=== PATIENT | female | born 1950 | race Caucasian/White ===

== ENCOUNTER → 2019-11-07 15:32 | Outpatient (BNVA) | payer MEDICARE, MEDICAID, SELFPAY | PROVIDERS: Family Provider Family Medicine; PCP Family Medicine; Referring Provider Family Medicine; Visit Provider Internal Medicine Cardiovascular Disease | DX: R07.9 Chest pain, unspecified (principal); I49.9 Cardiac arrhythmia, unspecified; R06.02 Shortness of breath; R07.89 Other chest pain; I48.91 Unspecified atrial fibrillation; Z79.01 Long term (current) use of anticoagulants; I48.19 Other persistent atrial fibrillation; I35.8 Other nonrheumatic aortic valve disorders; E11.65 Type 2 diabetes mellitus with hyperglycemia; I10 Essential (primary) hypertension | CPT/HCPCS: 80053; 84443; 85025 ==

== ENCOUNTER 2019-11-23 07:07 | Outpatient (CLI) | payer MEDICARE, MEDICAID, SELFPAY ==
--- NOTE | 2019-11-23 07:19 | NMCV_ITS ---
NM tala perf SPECT r/s* [id number] Merly Guillen Age: 69 Gender: F : 1950 Exam Date: 11/23/2019 08:15 Ordering Phys: Sánchez Gaxiola MD ([email or web address]) Technologist: LILA Blackman Exam Location: [facility] Indications: Chest pain STRESS TEST [facility] IMAGE PROTOCOL Rest/Stress 1 Lexiscan Day Radiopharmaceutical Dose (mCi) Administration Site Administered by Rest: Tc-99m 10.9 IV LILA Blackman Sestamibi Stress:Tc-99m 32.3 IV LILA Blackman Sestamibi Rest: 23-Nov-2019 60 Discovery 630 Stress: 23-Nov-2019 45 Discovery 630 0.4mg Lexiscan. Supine position only as patient was unable to lay prone. SPECT RESULTS Technical Quality: Good Raw Data Analysis: Breast attenuation, Soft tissue attenuation Image Corrections: No attenuation or motion correction applied Summed Stress Score: 4 Summed Rest Score: 0 Summed Difference Score: 4 PERFUSION FINDINGS Small to moderate area of decreased tracer uptake was noted in the mid anterior, anterolateral and apical lateral regions. Some reversibility was noted in these regions. FUNCTIONAL RESULTS (calculated via Gated SPECT) Stress Image LV EF (%): 60 Stress EDV (mL):80 TID: 0.86 Stress ESV (mL):32 FUNCTIONAL FINDINGS: Segmental wall motion analysis revealing no gross wall motion normalities. IMPRESSIONS 1. Myocardial perfusion imaging revealing a small to moderate area of decreased tracer uptake in the mid anterior, mid anterolateral and apical lateral region, with some reversibility, suggestive of myocardial scarring with ischemia in the distribution of the left and descending artery/circumflex artery. 2. Normal LV ejection fraction of 60%. 3. LV wall motion analysis revealing no gross wall motion normalities. 4. Normal LV volume. No similar previous studies are available for comparison Dr Sánchez Gaxiola MD FAC (Electronically Signed) Final Date: 23 Nov 2019 19:06 S
[2019-11-23 07:43] VITALS: BMI 34.9
--- NOTE | 2019-11-23 07:43 | ECG_ITS ---
NAME OF STUDY: LEXISCAN SESTAMIBI STRESS TEST INDICATION: Atypical Chest Pain RESULTS TO KELLY QUIÑONES PROCEDURE: At the baseline, the EKG revealed atrial fibrillation with a controlled ventricular response rate. Some nonspecific T wave changes. Frequent ventricular ectopics. The baseline blood pressure was 155/98 mm Hg with a heart rate of 106 beats/min. Lexiscan was infused over a period of 20 seconds. A total of 0.4 milligrams of Lexiscan was infused. The stress phase was continued for a total of 5 minutes. Heart rate at the end of the stress phase was 110 with a blood pressure 155/88. The EKG at the peak infusion revealed no significant changes. Sestamibi was injected 20 seconds after the Lexiscan infusion. Blood pressure at the end of the recovery phase was 141/60 with a heart rate of 111 per minute. CONCLUSION: 1. No significant EKG changes with the LexiScan infusion 2. No LexiScan induced chest pain or cardiac arrhythmia 3. Normal blood pressure and heart rate response 4. Sestamibi/sestamibi perfusion scan pending; see separate report. Electronically Signed On 11-23-2019 19:16:32 CDT by Sánchez Gaxiola M.D. [email or web address]
--- NOTE | 2019-11-23 09:08 | SUR.PREOP ---
Patient reports no pain or discomfort prior to the start of the procedure.
[2019-11-23] MEDS: regadenoson 0.4 Mg/5 ml Syringe IVP (09:10)
[2019-11-23 09:16] VITALS: BP 144/61; PULSE 111
== END 2019-11-23 07:08 | disposition home or self-care (01) ==
LOC: RAD 07:15
PROVIDERS: PCP Family Medicine; Visit Provider Internal Medicine Cardiovascular Disease
DX: R06.02 Shortness of breath (principal); R07.89 Other chest pain
CPT/HCPCS: 78452; 93017; A9500; J2785

== ENCOUNTER 2019-11-30 08:30 | Outpatient (CLI) | payer MEDICARE, MEDICAID, SELFPAY ==
--- NOTE | 2019-11-30 08:34 | MR_ITS ---
WS: [id number] MRI BRAIN WITH AND WITHOUT CONTRAST HISTORY: MILD COGNITIVE IMPAIRMENT COMPARISON: None available. TECHNIQUE: Multiplanar imaging performed through the brain with Prohance 17 ml's IV. No acute infarcts are seen. Overton-white matter differentiation is well preserved. There is mild symmet duran atrophy and volume loss. CSF nodule measuring 10 mm in the RIGHT frontal lobe white matter is pro bably from a prior insult. There are a few scattered T2 and FLAIR signal hyperintensities in the subc ortical white matter. Bilateral ischemic changes in the viola. No susceptibility artifacts or prior lacunar infarcts. Ventricles and extra-axial spaces are normal. Clivus and pituitary gland are normal. Postcontrast images are negative for masses or vascular malformations. Dural venous sinuses are normal. Paranasal sinuses: Well aerated with no significant disease. Mastoid air cells: Normal. Calvarium and scalp: Normal. MR/MR head wo/w con [id number] IMPRESSION: 1. No acute infarct or masses. 2. Benign cyst in the RIGHT frontal lobe. 3. Mild chronic microvascular ischemic disease in the supratentorial white mat ter and also in the viola.
== END 2019-11-30 08:31 | disposition home or self-care (01) ==
LOC: RADSHAW 08:32
PROVIDERS: PCP Family Medicine; Visit Provider Physician Assistant
DX: G31.84 Mild cognitive impairment of uncertain or unknown etiology (principal); G93.0 Cerebral cysts; I25.9 Chronic ischemic heart disease, unspecified
CPT/HCPCS: 70553; A9579

== ENCOUNTER → 2020-01-04 13:02 | Outpatient (BNVA) | payer MEDICARE, MEDICAID, SELFPAY | PROVIDERS: PCP Family Medicine; Visit Provider Internal Medicine | DX: D64.9 Anemia, unspecified (principal); K92.1 Melena; E21.3 Hyperparathyroidism, unspecified; E78.5 Hyperlipidemia, unspecified | CPT/HCPCS: 82607; 82746; 83550; 85045 ==

== ENCOUNTER 2020-01-13 07:50 | Day surgery (SDC) | payer MEDICARE, MEDICAID, SELFPAY ==
[2020-01-11 12:43] VITALS: BMI 33.5
[2020-01-13 08:16] VITALS: BP 108/55; PULSE 114; RESP 18; TEMP 36.1; O2SAT 97
[2020-01-13] MEDS: sodium chloride 0.9% 1,000 ML 30 ML IV (08:30)
[2020-01-13 08:31] LABS: Glucose Point of Care 218 mg/dL (70-110)
--- NOTE | 2020-01-13 08:46 | ANES.PREANE2 ---
Pre-Anesthetic Assessment Pre-Anesthetic Assessment: Height/Weight: Height 1.8 m Weight 108.862 kg Temp Pulse Resp BP Pulse Ox 97.0 F L 114 H 18 108/55 97 01/13/20 08:16 01/13/20 08:16 01/13/20 08:16 01/13/20 08:16 01/13/20 08:16 Preop Diagnosis: gerd Proposed Procedure: Operation Date: 01/13/20 09:00 Proposed Procedures p EGD/COLON 61838 [id number] D64.9(Not Applicable) - Christiano Jerez MD s Colonoscopy(Not Applicable) - Christiano Jerez MD Was Beta Alex taken within 24 hours: Yes Last intake: Intake Last Liquid Date 01/12/20 Last Liquid Time 20:00 Social: Social History: No alcohol and No tobacco Exam: Pre-Anes Outpt Exam: alert, oriented x 3, clear to auscultation bilaterally and regular rate & rhythm Airway: Submandibular: WNL Cervical ROM: WNL MP: 3 History/ROS: No significant history except as noted Pulmonary: Comments: snoring CV/HEM: CV/HEM: Angina (Stable), Arrythmia and HTN : Comments: renal calculi Hepatic: Hepatic: None reported GI: GI: GERD and Hiatus hernia Metabolic: Metabolic: DM, Morbid obesity and Thyroid (overactive, surgery scheduled for next month) Musc/skel: Musc/skel: None reported Neuropsych: Neuropsych: None reported Anesthetic Plan: ASA status: 3 Anesthesia: Anesthesia Evaluation and MAC Risk of > 500 ml blood loss (7ml/kg in children): No PFSH Anesthesia PFSH: Medical History (Updated 01/04/20 @ 11:27 by Christiano Jerez MD) Abnormal cardiovascular stress test Arthritis Atrial fibrillation An EKG was done in the office today since the patient was found to have an irregularly irregular heartbeat. The EKG showed atrial fibrillation with a ventricular response rate of 93 bpm. Frequent PVCs also were noted. Some nonspecific T wave changes. Atypical chest pain Depression Diabetes Hypertension Irregular heart beat Neuropathy Nonrheumatic aortic valve sclerosis Ventricular arrhythmia Surgical History H/O: hysterectomy History of appendectomy Hx of cholecystectomy Family History Other CAD (coronary artery disease) Cancer Diabetes Hyperlipidemia Hypertension Denies family history of Chronic kidney disease (CKD) Anesthesia complication Bleeding disorder Stroke Social History (Updated 01/04/20 @ 11:06 by DAKSHA Martinez) Smoking and tobacco status: never smoked Alcohol intake: never History of recent travel: No Data Anesthesia Other Labs: Laboratory Results - last 48 hr 01/13/20 08:26 POC Glucose 218 Cardiac Studies: No Data to Display
[2020-01-13 10:13] VITALS: BP 103/55; PULSE 79; RESP 16; TEMP 36.6; O2SAT 100
[2020-01-13 10:20] VITALS: BP 102/53; PULSE 84; RESP 18; O2SAT 97
--- NOTE | 2020-01-18 16:45 | W.PM.OPSUD ---
Surgery/Procedure H&P Update DATE OF PROCEDURE: January 18, 2020 DATE H&P PERFORMED: 01/04/20 PREOP DIAGNOSIS: gerd PLANNED PROCEDURE: Operation Date: 01/13/20 09:00 Proposed Procedures p EGD/COLON 87366 15531 D64.9(Not Applicable) - Christiano Jerez MD s Colonoscopy(Not Applicable) - Christiano Jerez MD
== END 2020-01-13 10:33 | disposition home or self-care (01) ==
PROVIDERS: PCP Family Medicine; Visit Provider Internal Medicine
PROC: 0DJ08ZZ Inspection of Upper Intestinal Tract, Via Natural or Artificial Opening Endoscopic (ICD-10-PCS; CPT 43235; principal; 2020-01-13 09:00)
PROC: 0DJD8ZZ Inspection of Lower Intestinal Tract, Via Natural or Artificial Opening Endoscopic (ICD-10-PCS; CPT 45378; 2020-01-13 09:00)
DX: K21.9 Gastro-esophageal reflux disease without esophagitis (principal); D64.9 Anemia, unspecified; K92.1 Melena; E21.3 Hyperparathyroidism, unspecified; Z79.82 Long term (current) use of aspirin; M19.90 Unspecified osteoarthritis, unspecified site; E11.40 Type 2 diabetes mellitus with diabetic neuropathy, unspecified; Z79.4 Long term (current) use of insulin; K57.30 Diverticulosis of large intestine without perforation or abscess without bleeding; E66.01 Morbid (severe) obesity due to excess calories; Z68.33 Body mass index [BMI] 33.0-33.9, adult
CPT/HCPCS: 12345; 36416; 43235; 45378; 82962; J7030

== ENCOUNTER → 2020-02-23 08:59 | Outpatient (BNVA) | payer MEDICARE, MEDICAID, SELFPAY | PROVIDERS: PCP Family Medicine; Referring Provider Family Medicine; Visit Provider Internal Medicine | DX: E21.3 Hyperparathyroidism, unspecified (principal); E11.65 Type 2 diabetes mellitus with hyperglycemia; N18.3 Chronic kidney disease, stage 3 (moderate); I12.0 Hypertensive chronic kidney disease with stage 5 chronic kidney disease or end stage renal disease | CPT/HCPCS: 99204 ==

== ENCOUNTER 2020-04-06 08:52 | Outpatient (CLI) | payer MEDICARE, MEDICAID, SELFPAY ==
--- NOTE | 2020-04-06 09:01 | USCV_ITS ---
Merly Guillen Age: 69 Gender: F : 1950 Exam Date: 04/06/2020 09:26 Ordering Phys: Sánchez Gaxiola MD ([email or web address]/[email or web address]) Technologist: Francesca Peterson Exam Location: [facility] [place] Indication: HISTORY: Lower extremity swelling. PROCEDURES: Bilateral duplex Venous Insufficiency study of the Deep and Superficial systems was carried out according to normal protocol with the patient in supine positon for deep system and dependent position for the superficial system. FINDINGS: All deep veins demonstrated compressibility without evidence of intraluminal thrombus or increased echogenicity. Spectral analysis of Doppler signals demonstrates normal response to compression maneuvers indicating patency without obstruction. Reflux determinations were made with the patient in the dependent position, the weight being on the contralateral leg. Vein measurements and reflux times are listed below were applicable. SIGNIFICANT REFLUX IN BOTH LEGS PT IS A GOOD candidate for ablation CONCLUSIONS 1. No evidence of DVT in the above-mentioned identifiable veins. 2. On the right side, significant venous reflux of greater than 500 ms were noted at the saphenofemoral junction, distal to the saphenofemoral junction; mid, distal and below-knee greater saphenous vein segments. These segments are greater than 2 cm deep from the surface and where measuring 0.5 to 0.82 cm in diameter. 3. On the left side, significant venous reflux of greater than 500 ms were noted at the saphenofemoral junction; proximal, distal and below- knee segments of the greater saphenous vein . These venous segments were greater than 2 cm deep from the surface. They were measuring anywhere from 0.5 to 0.8 cm in diameter. 4. No significant deep venous reflux is noted. The venous dimensions, depth from the surface and reflux times are as mentioned above Dr Sánchez Gaxiola MD [facility] (Electronically Signed) Final Date: 06 April 2020 17:42 S
== END 2020-04-06 08:53 | disposition home or self-care (01) ==
LOC: RAD 08:56
PROVIDERS: PCP Family Medicine; Visit Provider Internal Medicine Cardiovascular Disease
DX: M79.89 Other specified soft tissue disorders (principal); M79.604 Pain in right leg; M79.605 Pain in left leg
CPT/HCPCS: 93970

== ENCOUNTER 2020-04-24 14:00 | Outpatient (CLI) | payer MEDICARE, MEDICAID, SELFPAY ==
[2020-04-24 14:55] LABS: INR 1.08 (0.8-1.2)
[2020-04-24 15:43] LABS: Parathyroid Hormone 72.1 pg/mL (15-65)
== END 2020-04-24 14:01 ==
PROVIDERS: Internal Medicine Cardiovascular Disease; PCP Family Medicine; Visit Provider Internal Medicine
DX: E04.9 Nontoxic goiter, unspecified (principal); E21.3 Hyperparathyroidism, unspecified; M79.89 Other specified soft tissue disorders; N18.30 Chronic kidney disease, stage 3 unspecified
CPT/HCPCS: 82310; 83970; 85610; 99215

== ENCOUNTER 2020-05-17 14:20 | Outpatient (CLI) | payer MEDICARE, MEDICAID, SELFPAY ==
--- NOTE | 2020-05-17 14:15 | US_ITS ---
WS: [id number] THYROID ULTRASOUND HISTORY: Goiter, CT showed possible 5 cm nodule COMPARISON: None available. Right lobe: 6.6 cm x 3.1 cm x 2.9 cm. Volume: 30.4 cm3. Markedly enlarged heterogeneous but predominantly hypoechoic lobe. There are multiple ill-defined nod ules throughout the gland. No significant increased vascularity. Left lobe: 6.7 cm x 4.8 cm x 3.2 cm. Volume: 54.1 cm3. Markedly enlarged heterogeneous but predominantly hyperechoic lobe. Multiple ill-defined nodules thro ughout the gland. No significant increased vascularity. Isthmus: 0.5 cm. US/US thyroid [id number] IMPRESSION: Findings are most consistent with multinodular goiter. There are numerous ill-d efined nodules which are all very similar in appearance.
== END 2020-05-17 14:21 | disposition home or self-care (01) ==
LOC: RAD 14:26
PROVIDERS: PCP Family Medicine; Visit Provider Internal Medicine
DX: E04.9 Nontoxic goiter, unspecified (principal)
CPT/HCPCS: 76536

== ENCOUNTER → 2020-05-28 14:20 | Outpatient (BNVA) | payer MEDICARE, MEDICAID, SELFPAY | PROVIDERS: PCP Family Medicine; Visit Provider Internal Medicine | DX: E04.9 Nontoxic goiter, unspecified (principal); E21.3 Hyperparathyroidism, unspecified; E55.9 Vitamin D deficiency, unspecified; I10 Essential (primary) hypertension; N18.30 Chronic kidney disease, stage 3 unspecified | CPT/HCPCS: 99214 ==

== ENCOUNTER 2020-06-07 09:04 | Outpatient (CLI) | payer MEDICARE, MEDICAID, SELFPAY ==
--- NOTE | 2020-06-07 09:11 | MR_ITS ---
WS: [id number] MRI BRAIN WITH HIGH-RESOLUTION IMAGING THROUGH THE INTERNAL AUDITORY CANALS WITHOUT AND WITH CONTRAST HISTORY: KHANH SENSORINEURAL HEARING LOSS, sudden IDIOPATHIC HEARING LOSS COMPARISON: 11/30/2019 TECHNIQUE: Multiplanar, multisequence imaging is performed through the brain. Additional 3 mm imaging performed in multiple planes through the internal auditory canal. Postcontrast imaging with 17 ml's of Prohance. No acute intracranial hemorrhage, midline shift, edema or mass effect. Chronic microvascular ischemic changes bilaterally in the viola and in the supratentorial white matter . Benign appearing cyst in the central RIGHT frontal lobe measures 10 mm and unchanged. No enhancemen t. There is only very mild cerebral and cerebellar atrophy. Ventricles and extra-axial spaces are normal. No inferior displacement of cerebellar tonsils. Clivus and pituitary gland are normal. Internal and external auditory canals: Unremarkable. Cranial nerves VII and VIII complexes: Unremarkable. No enhancement or mass. Cerebellopontine angles: Normal. Paranasal sinuses: Very mild mucoperiosteal thickening in the mastoid cavities. No air-fluid levels. Mastoid air cells: Normal. Calvarium and scalp: Normal. Visualized redding of [place] and dural venous sinuses demonstrate no abnormality. MR/MR iac's wo/w con* [id number] IMPRESSION: 1. No mass or abnormal signal in the internal auditory canals or or at the cer ebellopontine angles. 2. Stable mild microvascular ischemic disease in the supratentorial white maribell er and in the viola bilaterally.
== END 2020-06-07 09:05 | disposition home or self-care (01) ==
LOC: RADSHAW 09:07
PROVIDERS: PCP Family Medicine; Visit Provider Specialist
DX: H90.3 Sensorineural hearing loss, bilateral (principal); H93.13 Tinnitus, bilateral; I67.82 Cerebral ischemia
CPT/HCPCS: 70553; A9579

== ENCOUNTER 2020-06-25 14:46 | Outpatient (CLI) | payer MEDICARE, MEDICAID, SELFPAY ==
--- NOTE | 2020-06-25 14:55 | MM_ITS ---
WS: [id number] Exam: [place] [id number] Date/Time of Exam: 06/25/2020 3:32 PM Reason For Exam: SCREENING VIEWS: MLO and CC views both breasts. Comparison made with prior exam of 10/13/2011 and 03/23/2019. Findings: There was no sign of mass, architectural distortion or suspicious calcification in either breast. Sc attered fibroglandular densities MM/[place] [id number] Impression: BI-RADS: 2-Benign FOLLOW-UP: 1 Year Follow-up This mammogram was also analyzed by the Computer Aided Detection System R2 Imag e Senior Android Developer.
== END 2020-06-25 14:47 | disposition home or self-care (01) ==
LOC: RADSHAW 14:53
PROVIDERS: PCP Family Medicine; Visit Provider Family Medicine
DX: Z12.31 Encounter for screening mammogram for malignant neoplasm of breast (principal)
CPT/HCPCS: 77067

== ENCOUNTER 2020-07-11 22:58 | Emergency (ER) | payer MEDICARE, SELFPAY ==
--- NOTE | 2020-07-11 23:02 | CTR_ITS ---
PROCEDURE INFORMATION: Exam: CT Head Without Contrast Exam date and time: 07/11/2020 11:07 PM Age: 70 years old Clinical indication: Pain; Headache; Additional info: [facility]SON TECHNIQUE: Imaging protocol: Computed tomography of the head without contrast. Radiation optimization: All CT scans at this facility use at least one of these dose optimization techniques: automated exposure control; mA and/or kV adjustment per patient size (includes targeted exams where dose is matched to clinical indication); or iterative reconstruction. COMPARISON: MR head wo/w con [id number] 11/30/2019 9:25 AM RADIATION DOSE METRICS: Total DLP (mGy-cm): 901.77 FINDINGS: Brain: There is a 12 x 8 mm circumscribed fluid-filled lesion in the anterior right frontal lobe white matter, similar to the findings on prior MRI of 11/30/2019. The brain is otherwise unremarkable. There is no mass effect or midline shift. There is no acute intracranial hemorrhage. Cerebral ventricles: There is no significant ventricular dilation. The basal cisterns are unremarkable. Bones/joints: The calvarium is intact. Paranasal sinuses: The paranasal sinuses are clear. Mastoid air cells: The mastoid air cells are clear. Soft tissues: The visible extracranial soft tissues are unremarkable. CT/CT head wo con* [id number] IMPRESSION: No acute findings. Radiation Dose CTDIVOL = (mGy): DLP = 901.77 (mGy-cm)
[2020-07-11 23:05] VITALS: BP 167/61; PULSE 51; RESP 18; TEMP 36.8; O2SAT 98; BMI 32.6
--- NOTE | 2020-07-11 23:06 | ECG_ITS ---
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
--- NOTE | 2020-07-11 23:35 | XRR_ITS ---
PROCEDURE INFORMATION: Exam: XR Chest, 1 View Exam date and time: 07/11/2020 11:49 PM Age: 70 years old Clinical indication: Patient HX: Syncopal episode. Hypertensive. TECHNIQUE: Imaging protocol: XR of the chest Views: 1 view. COMPARISON: CR Chest 1 [place] [id number] 03/15/2019 3:43 PM FINDINGS: Lungs: Lungs are clear. Pleural space: There is no pleural effusion or pneumothorax. Heart/Mediastinum: The cardiac silhouette is within normal limits of size given AP technique. Bones/joints: Bones are unremarkable. XR/XR chest 1V portable [id number] IMPRESSION: No acute findings.
--- NOTE | 2020-07-11 23:41 | W.ED.SYNCOPE ---
HPI - Syncope General: Chief Complaint: Syncope Stated Complaint: SYNCOPAL EPISODES, HEAD FEELS LIKE IS EXPLODING Time Seen by Provider: 07/11/20 23:35 History of Present Illness: HPI narrative: Patient is a 70-year-old female comes to the ED with headache after a syncopal episode. Patient has a past medical history of CKD stage III, type 2 diabetes, hyperparathyroid is on, A. fib, and hypertension. Just prior to arrival patient says she was doing some laundry at her house and she walked over to her recliner to sit down to rest. She says she was feeling weak and a little lightheaded after doing laundry. She sat down in her recliner and put her head back and says she had loss of consciousness for approximately 2 hours. When she woke up she felt a little dizzy/off balance. She denies any chest pain or shortness of breath before the syncopal episode and even after. She now has a headache on the right side of her head that she rates an 8 out of 10. She describes the headache as sharp. Denies any vision changes or neurological symptoms. Patient ambulates with a walker. Associated symptoms: Reports headache(s) and lightheadedness; Deny abdominal pain, chest pain, fever(s) or nausea Review of Systems Const: Denies: fever(s), chills or fatigue Eyes: Denies: change in vision or eye discomfort ENMT: Denies: throat pain, odynophagia, nasal discharge or nasal congestion Card: Reports: lightheadedness and syncope; Denies: chest pain, palpitations, edema, swelling of feet/ankles, dyspnea on exertion or orthopnea Resp: Denies: dyspnea, productive cough or non-productive cough GI: Denies: abdominal pain, nausea, vomiting, diarrhea, constipation or hematochezia : Denies: flank pain, dysuria or hematuria Musc: Denies: neck pain, back pain or extremity swelling Skin/Breast: Denies: rash or new lesions Neuro: Reports: headache(s) and dizziness; Denies: numbness in extremities or weakness in extremities [facility] ED PFSH: Medical History Abnormal cardiovascular stress test Arthritis Atrial fibrillation An EKG was done in the office today since the patient was found to have an irregularly irregular heartbeat. The EKG showed atrial fibrillation with a ventricular response rate of 93 bpm. Frequent PVCs also were noted. Some nonspecific T wave changes. Atypical chest pain Depression Diabetes Hypertension Irregular heart beat Neuropathy Nonrheumatic aortic valve sclerosis Swelling of lower leg Varicose vein of leg Ventricular arrhythmia Surgical History H/O: hysterectomy History of appendectomy Hx of cholecystectomy Family History Other CAD (coronary artery disease) Cancer Diabetes Hyperlipidemia Hypertension Denies family history of Chronic kidney disease (CKD) Anesthesia complication Bleeding disorder Stroke Social History Smoking and tobacco status: never smoked Alcohol intake: never History of recent travel: No Physical Exam Const: COMMON NORMALS: no acute distress, patient oriented x3 and alert GENERAL APPEARANCE: cooperative and comfortable HENMT: COMMON NORMALS: normocephalic HEAD & SCALP: normocephalic MOUTH: Normal oral and palatal mucosa present THROAT: posterior oropharynx normal and uvula midline Eye: COMMON NORMALS: Equal, round and reactive pupils present and EOMs intact bilaterally PUPIL: Yes Equal, round and reactive pupils present Neck/C-Spine: COMMON NORMALS: supple GENERAL: Yes normal visual inspection Resp: COMMON NORMALS: normal respiratory effort, No retractions, No use of accessory muscles and clear to auscultation bilaterally AUSCULTATION: clear to auscultation bilaterally Cardio: COMMON NORMALS: regular rate, regular rhythm, S1 normal heart sound present, S2 normal heart sound present, No gallops present (Cardio), No clicks present (Cardio), No murmurs present (Cardio) and Peripheral pulses 2+ throughout RATE: regular rate RHYTHM: regular rhythm HEART SOUNDS: S1 normal heart sound present and S2 normal heart sound present PERIPHERAL PULSES: Peripheral pulses 2+ throughout GI: COMMON NORMALS: Normal to inspection, nondistended, normoactive bowel sounds present, Soft to palpation, non-tender and no masses PALPATION: Yes Soft to palpation : COMMON NORMALS: Yes no CVA tenderness BLADDER/KIDNEY EXAM: Yes no CVA tenderness Back/Pelvis: COMMON NORMALS: no CVA tenderness Extremity: GENERAL: Yes edema (non pitting edema bilaterally lower extremities.) Neuro: COMMON NORMALS: patient oriented x3 and moves all extremities SENSORIUM/ORIENTATION: Yes alert Skin: GENERAL SKIN EXAM: dry skin Course Reevaluation(s): Reevaluation #1: Patient's headache improved greatly after giving Tylenol here in ED. patient symptoms improved and she is feeling ready to go home. Time: 02:11 Vital Signs: Vital signs: Vital Signs Temperature 98.3 F 07/11/20 23:05 Pulse Rate 67 07/12/20 01:03 Respiratory Rate 17 07/12/20 01:03 Blood Pressure 189/74 07/12/20 01:03 Pulse Oximetry 96 07/12/20 01:03 MDM - Syncope MDM Narrative: Medical decision making narrative: Is a 70-year-old female comes to the ED with a headache and post syncopal episode. Past medical history of of type 2 diabetes, CKD stage III, hyperparathyroidism, A. fib and hypertension. Patient says she was up doing laundry then started to feel little weak and lightheaded so she sat down. She says she laid her head back put her feet up and passed out. She woke up 2 hours later and she had a headache. Denies any chest pain or shortness of breath. Bilateral lower extremity non pitting edema. physical exam shows no acute findings. Neuro exam was normal. Vitals stable. CBC and CMP were unremarkable. BNP 1063. Troponins negative. EKG showed atrial flutter with normal rate. Chest x-ray showed no acute findings. CT of head showed no acute findings. Patient given Tylenol while here in the ED and her headache greatly improved. Patient was ready to be discharged home. She was told to contact her PCP tomorrow morning to set up an appointment within the next 5 days. Return to ED precautions given. Patient understood and agree with plan. Lab Data: Attestation: I reviewed the patient's lab results. Labs: Lab Results 07/11/20 07/12/20 07/12/20 Range/Units 23:50 00:02 00:02 WBC 9.8 (4.0-10.0) 10^3/ uL RBC 3.73 L (4.1-5.3) 10^6/u L Hgb 10.4 L (11.5-15.3) g/dL Hct 34.5 L (37.0-47.0) % MCV 92.5 (81-99) fL MCH 27.9 L (28.0-34.0) pg MCHC 30.1 (30.0-36.0) g/dL RDW 13.4 (12.1-15.1) % Plt Count 195 (130-400) 10^3/c mm MPV 11.9 H (7.4-10.4) fL Neut % (Auto) 62.3 % Lymph % (Auto) 28.5 % [place] % (Auto) 6.6 % Eos % (Auto) 1.8 % Baso % (Auto) 0.5 % Neut # (Auto) 6.13 (1.8-7.7) 10^3/u L Lymph # (Auto) 2.8 (0.8-4.8) 10^3/u L [place] # (Auto) 0.7 (0.2-0.9) 10^3/u L Eos # (Auto) 0.2 (0.0-0.8) 10^3/u L Baso # (Auto) 0.1 (0.0-0.1) 10^3/u L Nucleated RBC % (a uto) 0 % Nucleated RBCs # 0.0 /100WBC Sodium 138 (136-145) mmol/L Potassium 4.1 (3.5-5.1) mmol/L Chloride 103 (98-107) mmol/L Carbon Dioxide 23 (22-29) mmol/L Anion Gap 16.1 (5-19) BUN 21 (8-23) mg/dL Creatinine 1.0 H (0.5-0.9) mg/dL GFR Calculation 55.1 L (90-130) mL/min Glucose 76 (65-115) mg/dL Calculated Osmolal ity 288 (285-295) mOsm/k g Calcium 10.1 (8.5-10.5) mg/dL Total Bilirubin 0.3 (0.15-1.2) mg/dL AST 24 (0-32) U/L ALT 18 (0-33) U/L Alkaline Phosphata se 64 (35-105) IU/L Troponin T Baselin e 30 H (0-10) ng/L Troponin T 120 Min [place] (0-10) ng/L Delta Troponin T (0-10) ABS# NT-Pro-B Natriuret Pep 1063 H (0-125) pg/mL Total Protein 7.0 (6.6-8.7) g/dL Albumin 3.6 (3.5-5.2) g/dL Globulin 3.4 (1.3-4.6) g/dL 07/12/20 Range/Units 01:51 WBC (4.0-10.0) 10^3/ uL RBC (4.1-5.3) 10^6/u L Hgb (11.5-15.3) g/dL Hct (37.0-47.0) % MCV (81-99) fL MCH (28.0-34.0) pg MCHC (30.0-36.0) g/dL RDW (12.1-15.1) % Plt Count (130-400) 10^3/c mm MPV (7.4-10.4) fL Neut % (Auto) % Lymph % (Auto) % [place] % (Auto) % Eos % (Auto) % Baso % (Auto) % Neut # (Auto) (1.8-7.7) 10^3/u L Lymph # (Auto) (0.8-4.8) 10^3/u L [place] # (Auto) (0.2-0.9) 10^3/u L Eos # (Auto) (0.0-0.8) 10^3/u L Baso # (Auto) (0.0-0.1) 10^3/u L Nucleated RBC % (a uto) % Nucleated RBCs # /100WBC Sodium (136-145) mmol/L Potassium (3.5-5.1) mmol/L Chloride (98-107) mmol/L Carbon Dioxide (22-29) mmol/L Anion Gap (5-19) BUN (8-23) mg/dL Creatinine (0.5-0.9) mg/dL GFR Calculation (90-130) mL/min Glucose (65-115) mg/dL Calculated Osmolal ity (285-295) mOsm/k g Calcium (8.5-10.5) mg/dL Total Bilirubin (0.15-1.2) mg/dL AST (0-32) U/L ALT (0-33) U/L Alkaline Phosphata se (35-105) IU/L Troponin T Baselin e (0-10) ng/L Troponin T 120 Min [place] 30.02 H (0-10) ng/L Delta Troponin T 0.02 (0-10) ABS# NT-Pro-B Natriuret Pep (0-125) pg/mL Total Protein (6.6-8.7) g/dL Albumin (3.5-5.2) g/dL Globulin (1.3-4.6) g/dL Imaging Data^: CXR: Attestation: I personally reviewed and interpreted this imaging study as follows: Radiologist's impression: [facility] [address] [place] [id number] XRay Report Signed Patient: Merly Guillen Unit #: [id number] : 1950 Age/Sex: 70 / F ADM Date: 07/11/20 Loc: ER Room/Bed: Attending Dr: Ordering Provider/Ordering MD: Noe Watson Date of Service: 07/11/20 Procedure(s): XR chest 1V portable [id number] Accession Number(s): [id number] Report Number: [id number] PROCEDURE INFORMATION: Exam: XR Chest, 1 View Exam date and time: 07/11/2020 11:49 PM Age: 70 years old Clinical indication: Patient HX: Syncopal episode. Hypertensive. TECHNIQUE: Imaging protocol: XR of the chest Views: 1 view. COMPARISON: CR Chest 1 [place] [id number] 03/15/2019 3:43 PM FINDINGS: Lungs: Lungs are clear. Pleural space: There is no pleural effusion or pneumothorax. Heart/Mediastinum: The cardiac silhouette is within normal limits of size given AP technique. Bones/joints: Bones are unremarkable. XR/XR chest 1V portable [id number] IMPRESSION: No acute findings. Dictated By: Rangel Wood MD Signed By: Rangel Wood MD Signed Date/Time: 07/12/20135 DD/ 3 CT Head: Attestation: I personally reviewed and interpreted this imaging study as follows: Radiologist's impression: [facility] [address] [place] [address], [place] [address] CT Scan Report Signed Patient: Merly Guillen Unit #: [id number] : 1950 Age/Sex: 70 / F ADM Date: 07/11/20 Loc: ER Room/Bed: Attending Dr: Ordering Provider/Ordering MD: Jessica Franco MD Date of Service: 07/11/20 Procedure(s): CT head wo con* [id number] Accession Number(s): [id number] Report Number: [id number] PROCEDURE INFORMATION: Exam: CT Head Without Contrast Exam date and time: 07/11/2020 11:07 PM Age: 70 years old Clinical indication: Pain; Headache; Additional info: [facility] TECHNIQUE: Imaging protocol: Computed tomography of the head without contrast. Radiation optimization: All CT scans at this facility use at least one of these dose optimization techniques: automated exposure control; mA and/or kV adjustment per patient size (includes targeted exams where dose is matched to clinical indication); or iterative reconstruction. COMPARISON: MR head wo/w con [id number] 11/30/2019 9:25 AM RADIATION DOSE METRICS: Total DLP (mGy-cm): 901.77 FINDINGS: Brain: There is a 12 x 8 mm circumscribed fluid-filled lesion in the anterior right frontal lobe white matter, similar to the findings on prior MRI of 11/30/2019. The brain is otherwise unremarkable. There is no mass effect or midline shift. There is no acute intracranial hemorrhage. Cerebral ventricles: There is no significant ventricular dilation. The basal cisterns are unremarkable. Bones/joints: The calvarium is intact. Paranasal sinuses: The paranasal sinuses are clear. Mastoid air cells: The mastoid air cells are clear. Soft tissues: The visible extracranial soft tissues are unremarkable. CT/CT head wo con* [id number] IMPRESSION: No acute findings. Radiation Dose CTDIVOL = (mGy): DLP = 901.77 (mGy-cm) Dictated By: Rangel Wood MD Signed By: Rangel Wood MD Signed Date/Time: 07/12/2033 DD/ EKG Data^: EKG 1: Attestation: I personally reviewed and interpreted this EKG as follows: EKG interpretation date: 07/12/20 Interpretation: Atrial flutter with slow ventricular response and PVCs seen. Rate 49 bpm, no ST segment elevations seen. Discharge Plan Discharge Patient Disposition: Home Clinical Impression: Episode of syncope Qualifiers: Syncope type: unspecified Qualified Code(s): R55 - Syncope and collapse Headache Qualifiers: Headache type: unspecified Headache chronicity pattern: acute headache Intractability: not intractable Qualified Code(s): R51.9 - Headache, unspecified Condition: Stable Prescriptions: No Action (DME) Diabetic shoes with inserts Qty: 1 RF: 0 (DME) Articulating AFO ankle brace Qty: 1 RF: 0 nitroglycerin 0.4 mg tablet, sublingual 0.4 mg SUBLINGUAL Q5M PRN (Reason: chest pain) 30 Days Qty: 30 RF: 3 lisinopril 40 mg tablet 40 mg PO DAILY RF: 0 simvastatin 40 mg tablet 40 mg PO DAILY RF: 0 Azo Cranberry 250 mg tablet,chewable 250 mg PO TID RF: 0 multivitamin Tablet 1 tab PO DAILY RF: 0 insulin aspart U-100 [Novolog Flexpen U-100 Insulin] 100 unit/mL (3 mL) insulin pen See Rx Instructions SUBCUT TID RF: 0 Novolin 70/30 U-100 Insulin 100 unit/mL (70-30) suspension See Rx Instructions SUBCUT BID RF: 0 isosorbide mononitrate 30 mg tablet extended release 24 hr 30 mg PO DAILY MDD take it in the evening 30 Days Qty: 30 RF: 5 omega-3 fatty acids [Fish Oil Concentrate] 1,000 mg capsule 1,000 mg PO DAILY RF: 0 metoprolol succinate 50 mg tablet extended release 24 hr 50 mg PO DAILY 90 Days Qty: 90 RF: 3 Discharge Orders: Discharge ED (Routine); Ordered 07/12/20 Ordered By: Noe Watson Referrals: Carlo Jason MD [Primary Care Provider] - Discharge Diet: Low Salt Discharge Activity: Increase activity as tolerated Patient Instructions: Syncope (ED), Acute Headache (ED) Activity Restrictions/Additional Instructions: Contact your PCP tomorrow morning to set up an appointment with them in the next 5 days. Continue taking home medications as prescribed. Return to the ER or your medical provider if condition worsens. Please read and understand discharge instructions. If any questions, please ask. Coding Level of Care Code ED Behavioral Medical Director for Chg Fwd Exam Comprehensive
[2020-07-12 00:13] LABS: Basophils # 0.1 10^3/uL (0.0-0.1); Basophils % 0.5 %; Eosinophils # 0.2 10^3/uL (0.0-0.8); Eosinophils % 1.8 %; Hematocrit 34.5 % (37.0-47.0); Hemoglobin 10.4 g/dL (11.5-15.3); Lymphocytes # 2.8 10^3/uL (0.8-4.8); Lymphocytes % 28.5 %; Mean Corpuscular HGB Conc 30.1 g/dL (30.0-36.0); Mean Corpuscular Hemoglobin 27.9 pg (28.0-34.0); Mean Corpuscular Volume 92.5 fL (81-99); Mean Platelet Volume 11.9 fL (7.4-10.4); Monocytes # 0.7 10^3/uL (0.2-0.9); Monocytes % 6.6 %; Neutrophils # 6.13 10^3/uL (1.8-7.7); Neutrophils % 62.3 %; Nucleated Red Blood Cells % 0 %; Platelet Count 195 10^3/cmm (130-400); Red Blood Count 3.73 10^6/uL (4.1-5.3); Red Cell Distribution Width 13.4 % (12.1-15.1); White Blood Count 9.8 10^3/uL (4.0-10.0)
[2020-07-12 00:44] LABS: Troponin(5th) Baseline 30 ng/L (0-10)
[2020-07-12 00:55] VITALS: BP 168/79; BP 172/66; BP 192/64; PULSE 66; PULSE 67; PULSE 68
[2020-07-12 01:03] VITALS: BP 189/74; PULSE 67; RESP 17; O2SAT 96
[2020-07-12] MEDS: acetaminophen 500 mg Tablet 1000 MG PO (01:04)
[2020-07-12 02:13] LABS: Troponin 5 2HR 30.02 ng/L (0-10); Troponin 5 2HR Delta 0.02 ABS# (0-10)
[2020-07-12 02:21] LABS: Alanine Aminotransferase 18 U/L (0-33); Albumin Level 3.6 g/dL (3.5-5.2); Alkaline Phosphatase 64 IU/L (35-105); Anion Gap 16.1 (5-19); Blood Urea Nitrogen 21 mg/dL (8-23); Calcium 10.1 mg/dL (8.5-10.5); Carbon Dioxide 23 mmol/L (22-29); Chloride 103 mmol/L (98-107); Globulin 3.4 g/dL (1.3-4.6); Glomerular Filtration Rate 55.1 mL/min (90-130); Glucose 76 mg/dL (65-115); NT Pro B Type Natriuretic Pept 1063 pg/mL (0-125); Osmolality Calculated 288 mOsm/kg (285-295); Potassium 4.1 mmol/L (3.5-5.1); Sodium 138 mmol/L (136-145); Total Bilirubin 0.3 mg/dL (0.15-1.2)
[2020-07-12 02:22] LABS: Aspartate Amino Transferase 24 U/L (0-32)
[2020-07-12 03:21] VITALS: BP 172/65; PULSE 65; RESP 17; O2SAT 95
== END 2020-07-12 02:43 | disposition home or self-care (01) ==
PROVIDERS: Emergency Medicine; Emergency Provider Physician Assistant; PCP Family Medicine
DX: R55 Syncope and collapse (principal); R51.9 Headache, unspecified; Z79.4 Long term (current) use of insulin; I48.91 Unspecified atrial fibrillation; E11.22 Type 2 diabetes mellitus with diabetic chronic kidney disease; I12.9 Hypertensive chronic kidney disease with stage 1 through stage 4 chronic kidney disease, or unspecified chronic kidney disease; N18.30 Chronic kidney disease, stage 3 unspecified; E11.40 Type 2 diabetes mellitus with diabetic neuropathy, unspecified
CPT/HCPCS: 12345; 36415; 70450; 71045; 80053; 83880; 84484; 85025; 93005; 99282; 99284

== ENCOUNTER 2020-08-06 06:52 | Outpatient (CLI) | payer MEDICARE, MEDICAID, SELFPAY ==
--- NOTE | 2020-08-06 07:00 | USCV_ITS ---
Merly Guillen Age: 70 Gender: F : 1950 Exam Date: 08/06/2020 07:25 Ordering Phys: Carlo Jason MD Technologist: Monica Pacheco Exam Location: [facility] – [place]_ Indication: PLEURAL EFF BP: 152 / 64 HR: 68 Rhythm: Atrial flutter Technical Quality: Fair MEASUREMENTS (Male / Female) Normal Values 2D ECHO LV Diastolic Diameter PLAX 6.2 cm 4.2 - 5.9 / 3.9 - 5.3 cm LV Systolic Diameter PLAX 4.0 cm LV Chamber Size 5.2 cm IVS Diastolic Thickness 1.1 cm 0.6 - 1.0 / 0.6 - 0.9 cm IVS Systolic Thickness 2.0 cm LVPW Diastolic Thickness 1.3 cm 0.6 - 1.0 / 0.6 - 0.9 cm LVPW Systolic Thickness 1.3 cm RV Chamber Size 3.3 cm LVOT Diameter 2.0 cm LV Ejection Fraction 2D Teich 63.8 % LV Ejection Fraction MOD 2C 56.6 % LV Ejection Fraction 2C AL 55.5 % LA Diameter 4.8 cm LA Width 4.2 cm LA Height 5.0 cm RA Width 3.5 cm RA Height 4.4 cm M-MODE LV Diastolic Diameter MM 6.6 cm 4.2 - 5.9 / 3.9 - 5.3 cm LV Systolic Diameter MM 4.6 cm LV Ejection Fraction MM Teich 56.8 % IVS Diastolic Thickness MM 0.6 cm 0.6 - 1.0 / 0.6 - 0.9 cm IVS Systolic Thickness MM 1.3 cm LVPW Diastolic Thickness MM 1.2 cm 0.6 - 1.0 / 0.6 - 0.9 cm LVPW Systolic Thickness MM 1.4 cm Aortic Annulus Diameter 3.1 cm LA Ao Ratio MM 1.7 MV E Point Septal Separation 0.3 cm DOPPLER AV Peak Velocity 182.0 cm/s LVOT Peak Velocity 132.0 cm/s AV Area Cont Eq vti 2.4 cm squared AV Area Cont Eq pk 2.3 cm squared MV Area PHT 4.2 cm squared Mitral E to A Ratio 1.5 MV E' Velocity 83.5 cm/s Mitral E to MV E' Ratio 16.5 Mitral E to LV E' Lateral Ratio 15.9 Mitral E to LV E' Septal Ratio 17.4 TR Peak Velocity 241.3 cm/s TR Peak Gradient 23.3 mmHg TV Peak E Velocity 59.0 cm/s Right Atrial Pressure 3.0 mmHg Pulmonary Artery Systolic Pressu 26.3 mmHg PV Peak Velocity 108.0 cm/s RV Acceleration Time 0.1 s RV Ejection Time 0.3 s RV AcT/ET 0.3 FINDINGS Left Ventricle Normal left ventricular size with a normal LV ejection fraction of 64%. Mild hypokinesia of the basal inferior wall segment.mild left ventricular hypertrophy. Grade III/IV diastolic dysfunction (restrictive filling pattern), severely elevated filling pressures. Right Ventricle The right ventricle is normal in size and function. Right Atrium The right atrium is normal in size. Left Atrium Mildly increased left atrial size. Mitral Valve Thickened mitral valve. Moderate mitral valve regurgitation. Aortic Valve Thickened aortic valve. Tricuspid Valve Trace to mild tricuspid valve regurgitation. Pulmonic Valve Pulmonic valve not well visualized. Pericardium Normal pericardium without effusion. Aorta Normal ascending aorta dimension. CONCLUSIONS Normal left ventricular size with a normal LV ejection fraction of 64%. Mild hypokinesia of the basal inferior wall segment.mild left ventricular hypertrophy. Grade III/IV diastolic dysfunction (restrictive filling pattern), severely elevated filling pressures. Thickened mitral valve. Moderate mitral valve regurgitation. Mildly increased left atrial size. Trace to mild tricuspid valve regurgitation. Features of the aortic valve sclerosis. There is no pericardial effusion. There are no intracardiac masses. Compared to the study from 06/23/2019, there is worsening of the left ventricular diastolic dysfunction Dr Sánchez Gaxiola MD FAC (Electronically Signed) Final Date: 06 August 2020 19:11 S
== END 2020-08-06 06:53 | disposition home or self-care (01) ==
LOC: US 06:52
PROVIDERS: PCP Family Medicine; Visit Provider Family Medicine
DX: J90 Pleural effusion, not elsewhere classified (principal)
CPT/HCPCS: 93306

== ENCOUNTER 2020-10-18 07:28 | Day surgery (SDC) | payer MEDICARE, MEDICAID, SELFPAY ==
--- NOTE | 2020-09-27 09:06 | PC.NURSE ---
Reschedule The patient was rescheduled for her venous ablation procedure from Thursday10/02/20 to 10/18/20. The patient, scheduling, ultrasound, Dr. King and his clinical staff were all notified by this nurse.
--- NOTE | 2020-10-18 07:30 | USCV_ITS ---
Merly Guillen Age: 70 Gender: F : 1950 Exam Date: 10/18/2020 07:52 Ordering Phys: Alfonso King MD ([email or web address]) Technologist: CHUN Exam Location: Echo Lab Indication: Guidance PROCEDURES: Guidance provided in CPRU for right GSV ablation FINDINGS: Greater saphenous vein was identified and was found to be patent. The proximal segment was found to be 0.59 cm in diameter CONCLUSIONS Patent right greater saphenous vein, measuring 0.59 cm proximally and at a depth of greater than [address] Sánchez Gaxiola MD [facility] (Electronically Signed) Final Date: 18 October 2020 23:49 S
[2020-10-18 07:49] VITALS: BMI 33.3
[2020-10-18] MEDS: diazePAM 5 mg Tablet 10 MG PO (08:00)
[2020-10-18 08:03] VITALS: BP 157/71; PULSE 48; RESP 18; O2SAT 95
--- NOTE | 2020-10-18 09:16 | P.HP_ITS ---
Same Day Surgery H&P Indication for Procedure/HPI DATE OF PROCEDURE: October 18, 2020 CHIEF COMPLAINT/INDICATIONFOR SURGICAL PROCEDURE: Symptomatic varicose veins. Preop for right leg venous ablation radiofrequency PREOP DIAGNOSIS: Chronic venous insufficiency, varicose vein PLANNED PROCEDRUE: Operation Date: 10/18/20 08:30 Proposed Procedures p Venous Ablations 49086 I83.90(Not Applicable) - Alfonso King MD 70-year-old female past medical history significant for hypertension diabetes mellitus and longstanding history of lower extremity edema varicose vein CEAP classification of C4 a who has failed compression stocking and conservative management for more than 6 months. She underwent venous reflux study rule out DVT and establish venous reflux of more than 500 ms bilaterally. She is more symptomatic in the right leg with cramps pain fatigue. She would like to proceed with radiofrequency venous ablation. She is little bit bradycardic but stable vital smith secondary to high-dose of metoprolol which I will cut down from 50mg to 12.5 mg. She denies chest pain PND orthopnea she denies dizziness presyncope syncope. I have explained her all the risk benefit and alternative for the procedure including risk for VTE leading to pulmonary embolism risk for being on anticoagulation if she developed DVT for few months she will be requiring anticoagulation and worse case scenario IVC filter. She understand the risk for jones in the leg skin. She would like to proceed with it. Medications/Allergies* Home Medications Medication Instructions Recorded Confirmed Type cranberry fruit concentrate 250 mg 250 mg PO TID 11/07/19 10/18/20 History chewable tablet multivitamin 1 tab PO DAILY 11/07/19 10/18/20 History simvastatin 40 mg tablet 40 mg PO DAILY 11/07/19 10/18/20 History insulin aspart U-100 100 unit/mL See Rx Instructions SUBCUT TID 02/23/20 10/18/20 History (3 mL) subcutaneous pen insulin human U-100 NPH-regulr See Rx Instructions SUBCUT BID ml 02/23/20 10/18/20 History 70-30 mix 100 unit/mL subcutaneous susp omega-3 fatty acids 1,000 mg 1,000 mg PO DAILY 05/28/20 10/18/20 History capsule cholecalciferol (vitamin D3) 50 50 mcg PO DAILY 07/31/20 10/18/20 History mcg (2,000 unit) capsule tumeric PO 07/31/20 08/07/20 History amlodipine 5 mg PO DAILY 10/18/20 10/18/20 History Allergies/Adverse Reactions Allergy/AdvReac Type Severity Reaction Status Date / Time adhesive tape Allergy Unknown unknown Verified 08/07/20 12:55 morphine Allergy Unknown unknown Verified 08/07/20 12:55 Penicillins Allergy Unknown ADR-Diarrhe Verified 08/07/20 12:55 a pregabalin [From Lyrica] Allergy Unknown unknown Verified 08/07/20 12:55 sitagliptin [From Januvia] Allergy Unknown unknown Verified 08/07/20 12:55 latex Allergy ADR-Itching Verified 08/07/20 12:55 metformin Allergy ADR-Diarrhe Verified 08/07/20 12:55 a milk Allergy Unknown Verified 08/07/20 12:55 Pertinent History/Comorbid Conditions* Medical History (Updated 07/20/20 @ 00:00 by ) Abnormal cardiovascular stress test Arthritis Atrial fibrillation An EKG was done in the office today since the patient was found to have an irregularly irregular heartbeat. The EKG showed atrial fibrillation with a ventricular response rate of 93 bpm. Frequent PVCs also were noted. Some nonspecific T wave changes. Atypical chest pain Depression Diabetes Hypertension Irregular heart beat Neuropathy Nonrheumatic aortic valve sclerosis Swelling of lower leg Varicose vein of leg Ventricular arrhythmia Surgical History (Updated 11/07/19 @ 14:59 by Sánhcez Gaxiola MD) H/O: hysterectomy History of appendectomy Hx of cholecystectomy Family History (Updated 11/07/19 @ 14:35 by Jeimy Lu RN) Diabetes CAD (coronary artery disease) Hyperlipidemia Cancer Hypertension Denies family history of Chronic kidney disease (CKD) Anesthesia complication Bleeding disorder Stroke Social History Smoking and tobacco status: never smoked Alcohol intake: never History of recent travel: No Pertinent Exam Findings alert and oriented x 3 Conscious Sedation Assessment PATIENT ASSESSED PRIOR TO SEDATION, WITH NO CHANGE NOTED: Yes AIRWAY EVAL/ANESTHESIA PLAN: ASA II Recommendations Surgery/Procedure today Coding Level of Care Code Acute Conservation Technician for Nile Solomon
--- NOTE | 2020-10-18 10:28 | PM.PROC ---
Other Information: The insufficient saphenous vein on the right side verified by ultrasound and diagrammed on the overlying skin. The varicose tributary veins and suitable access sites were identified and mapped. The affected right great saphenous prepped and draped in the usual sterile fashion. The patient was placed in reverse Trendelenburg position. Tumescent was instilled in the skin overlying the access site for local anesthesia. The vein was accessed PROXIMAL, MID, DISTAL - THIGH/CALF using ultrasound guidance and the Seldinger technique, a guidewire was introduced through the needle, which was then exchanged over the guidewire for a 7F sheath. The RF catheter was placed on the sterile field, flushed and wiped down, prepared, and connected by a sterile cable. The patient was placed in Trendelenburg position. After RF catheter position was verified by ultrasound, tumescent anesthesia was infiltrated, under ultrasound guidance, precisely into the perivenous compartment along the entire length of vein. After the RF catheter position was again confirmed with ultrasound imaging, and under direct external compression along the length of the heating element, RF energy was applied. The vein was segmentally ablated until the treatment length is completed. Device temperature was maintained at 120 +/- degrees C with an initial power level of 40W dropping to below 20W for each treatment. Total vein length treated 41 cm. Total cycles of RF 12. Time 4 minutes and 0 seconds. Repeat ultrasound of the right great saphenous vein was performed, confirming successful treatment. The catheter and sheath were withdrawn and hemostasis established with direct pressure. After assuring hemostasis, the skin incision over the saphenous vein was closed with a bandage and graduated compression stockings was applied from the level of the foot to the most proximal length of the thigh. Normal saline based 30 mL, lidocaine waste 10 mL, tumescent used 500 mL Coding Level of Care Code Acute Herbicide Service Sales Representative for g Fwd
[2020-10-18 10:30] VITALS: BP 140/68; PULSE 50; RESP 18; O2SAT 96
== END 2020-10-18 11:10 | disposition home or self-care (01) ==
PROVIDERS: PCP Family Medicine; Visit Provider Internal Medicine Cardiovascular Disease
DX: I83.811 Varicose veins of right lower extremity with pain (principal); I10 Essential (primary) hypertension; E11.9 Type 2 diabetes mellitus without complications; M19.90 Unspecified osteoarthritis, unspecified site; E11.40 Type 2 diabetes mellitus with diabetic neuropathy, unspecified; Z79.4 Long term (current) use of insulin; F32.9 Major depressive disorder, single episode, unspecified; Z82.49 Family history of ischemic heart disease and other diseases of the circulatory system; Z83.3 Family history of diabetes mellitus
CPT/HCPCS: 36475; C1769; C1888; C1894

== ENCOUNTER 2020-10-24 14:51 | Outpatient (CLI) | payer MEDICARE, MEDICAID, SELFPAY ==
--- NOTE | 2020-10-24 15:06 | USCV_ITS ---
Merly Guillen Age: 70 Gender: F : 1950 Exam Date: 10/24/2020 15:15 Ordering Phys: Alfonso King MD ([email or web address]) Technologist: ZAIRA [place] [facility] [place]: [place] HISTORY: Post ablation PROCEDURES: Venous duplex imaging was performed in only the right lower extremity. The following venous structures were evaluated: common femoral vein, profunda vein, proximal portion of the greater saphenous vein, superficial femoral vein, and the popliteal vein. In addition, the posterior tibial and peroneal trunk were evaluated. Serial compression, augmentation maneuvers, and spectral Doppler flow evaluation were performed. FINDINGS: No evidence of DVT seen in any deep vessel visualized at this time. Right GSV is ablated. No thrombus seen within the SFJ at this time. CONCLUSIONS No DVT right lower extremity. Dr. Bailey Mcgarry DO (Electronically Signed) Final Date: 24 October 2020 15:45 S
== END 2020-10-24 14:52 | disposition home or self-care (01) ==
PROVIDERS: PCP Family Medicine; Visit Provider Internal Medicine Cardiovascular Disease
DX: Z98.890 Other specified postprocedural states (principal)
CPT/HCPCS: 93971

== ENCOUNTER 2020-11-14 13:58 | Outpatient (CLI) | payer MEDICARE, MEDICAID, SELFPAY ==
--- NOTE | 2020-11-14 14:20 | XR_ITS ---
WS: [id number] DEXA (DUAL ENERGY X-RAY ABSORPTIOMETRY) Bone mineral density was performed using a [employer] machine. HISTORY: POST MENOPAUSAL COMPARISON: 11/12/2018 Lumbar spine BMD (L1-L4): 1.153 g/cm2 T score: -0.2 Z score: 0.2 Total hip BMD: Left: 0.876 g/cm2. T score: -1.0 Z score: -0.5 Right: 0.895 g/cm2. T score: -0.9 Z score: -0.4 10 year probability of a major osteoporotic fracture is 21%. Compared to the prior study from 11/12/2018. Lumbar spine bone mineral density has decreased by 5.5%. Bilateral hips bone mineral density has decrease by 6.2%. XR/XR DEXA axial skeleton* [id number] IMPRESSION: NORMAL BONE MINERAL DENSITY based upon the WHO classification for females. Sign ificant decrease in bone mineral density as compared to the prior examination.
== END 2020-11-14 13:59 | disposition home or self-care (01) ==
PROVIDERS: PCP Family Medicine; Visit Provider Family Medicine
DX: Z78.0 Asymptomatic menopausal state (principal)
CPT/HCPCS: 77080

== ENCOUNTER 2021-02-05 14:29 | Outpatient (CLI) | payer MEDICARE, MEDICAID, SELFPAY ==
--- NOTE | 2021-02-05 14:33 | MM_ITS ---
WS: [id number] BILATERAL DIGITAL DIAGNOSTIC MAMMOGRAM MAMMOGRAPHY WITH CAD CLINICAL INFORMATION: SUBCUTANEOUS NODULE OF BREAST HISTORY: Palpable lumps. History of COVID vaccine LEFT arm in June or July 2020 COMPARISON: June 25, 2020 TECHNIQUE: Bilateral CC, MLO, and ML views. FINDINGS: Scattered fibroglandular densities bilaterally. Palpable marker bilateral breasts and right axilla. No evidence of underlying mammographic abnormalit ies in the areas of palpable markers. Parenchyma is unchanged in appearance since June 25, 2020. Ultrasound is pending. ULTRASOUND BREAST BILATERAL TECHNIQUE: Ultrasound bilateral breast focused area of concern. CLINICAL INFORMATION: SUBCUTANEOUS NODULE OF BREAST COMPARISON: None. FINDINGS: Ultrasound right breast at the 3:00 position in right axilla. Ultrasound left breast at the 9:00 posi tion. No evidence of cystic or solid lesion in the area of palpable concern right breast. A few prominent l ymph nodes in the right axilla the largest measuring 2.0 x 1.0 CM. Preservation of the fatty hilum. T hese are nonspecific and may be reactive but technically indeterminate. No evidence of suspicious cystic or solid lesion in the area of palpable concern left breast. MM/[place] [id number] BI-RADS: 3-Probably Benign FOLLOW UP: See Report Slightly prominent lymph nodes right axilla with preservation of the fatty hilu m. These may be reactive but are technically indeterminant. If desired, the lar gest could be biopsied with ultrasound-guided biopsy versus 2-3 month interval follow-up with ultrasound. Otherwise recommend return to annual screening mammography.
--- NOTE | 2021-02-05 15:15 | US_ITS ---
WS: [id number] BILATERAL DIGITAL DIAGNOSTIC MAMMOGRAM MAMMOGRAPHY WITH CAD CLINICAL INFORMATION: SUBCUTANEOUS NODULE OF BREAST HISTORY: Palpable lumps. History of COVID vaccine LEFT arm in June or July 2020 COMPARISON: June 25, 2020 TECHNIQUE: Bilateral CC, MLO, and ML views. FINDINGS: Scattered fibroglandular densities bilaterally. Palpable marker bilateral breasts and right axilla. No evidence of underlying mammographic abnormalit ies in the areas of palpable markers. Parenchyma is unchanged in appearance since June 25, 2020. Ultrasound is pending. ULTRASOUND BREAST BILATERAL TECHNIQUE: Ultrasound bilateral breast focused area of concern. CLINICAL INFORMATION: SUBCUTANEOUS NODULE OF BREAST COMPARISON: None. FINDINGS: Ultrasound right breast at the 3:00 position in right axilla. Ultrasound left breast at the 9:00 posi tion. No evidence of cystic or solid lesion in the area of palpable concern right breast. A few prominent l ymph nodes in the right axilla the largest measuring 2.0 x 1.0 CM. Preservation of the fatty hilum. T hese are nonspecific and may be reactive but technically indeterminate. No evidence of suspicious cystic or solid lesion in the area of palpable concern left breast. US/US breast BI limited* [id number] BI-RADS: 3-Probably Benign FOLLOW UP: See Report Slightly prominent lymph nodes right axilla with preservation of the fatty hilu m. These may be reactive but are technically indeterminant. If desired, the lar gest could be biopsied with ultrasound-guided biopsy versus 2-3 month interval follow-up with ultrasound. Otherwise recommend return to annual screening mammography.
== END 2021-02-05 14:30 | disposition home or self-care (01) ==
LOC: RADSHAW 14:33
PROVIDERS: PCP Family Medicine; Visit Provider Family Medicine
DX: N63.10 Unspecified lump in the right breast, unspecified quadrant (principal); N63.20 Unspecified lump in the left breast, unspecified quadrant
CPT/HCPCS: 76642; 77066

== ENCOUNTER 2021-02-05 15:14 | Outpatient (CLI) | payer MEDICARE, MEDICAID, SELFPAY ==
--- NOTE | 2021-02-05 | XR_ITS ---
WS: [id number] RIGHT FOOT: 3 VIEW(S) TECHNIQUE: AP, oblique and lateral. HISTORY: RIGHT FOOT PAIN COMPARISON: None available. No acute fracture or dislocation. Osteopenia. Severe hammertoe deformities. Small calcaneal spur and enthesopathy at the Achilles tendo n. Mild soft tissue edema surrounding the foot. XR/XR foot RT min 3V* [id number] IMPRESSION: 1. No acute fracture. 2. Severe hammertoe deformities. 3. Osteopenia.
== END 2021-02-05 15:15 | disposition home or self-care (01) ==
LOC: RADOUTREAD 15:19
PROVIDERS: Visit Provider Nurse Practitioner
DX: Z53.9 Procedure and treatment not carried out, unspecified reason (principal)

== ENCOUNTER 2021-03-25 14:55 | Outpatient (CLI) | payer MEDICARE, MEDICAID, SELFPAY ==
--- NOTE | 2021-03-25 15:00 | US_ITS ---
WS: [id number] THYROID ULTRASOUND (TI-RADS CRITERIA) History: Goiter.. Technique: Ultrasound examination of the thyroid and adjacent soft tissues is performed. Comparison: 05/17/2020. FINDINGS: Right lobe: 6.5 cm x 3.0 cm x 2.5 cm. Volume: 24.5 cm3. The RIGHT thyroid is enlarged. Essentially there is a new nodular appearance of the entire gland with increased vascularity. Predominantly hypoechoic gland with a few cystic areas. Lymph nodes: None. Left lobe: 6.7 cm x 3.9 cm x 2.5 cm. Volume: 34.4 cm3. Multinodular gland. The entire thyroid is enlarged and nodular. There is increased vascularity and a few cystic areas. Very similar to the prior study. Lymph nodes: None. Isthmus: 0.7 cm. US/US thyroid [id number] Impression: Recommend ultrasound-guided fine-needle aspiration of the most concerning nodul es within each gland. This may be a thyroid goiter but malignancy cannot be exc luded.
== END 2021-03-25 14:56 | disposition home or self-care (01) ==
PROVIDERS: PCP Family Medicine; Visit Provider Internal Medicine
DX: E04.2 Nontoxic multinodular goiter (principal)
CPT/HCPCS: 76536

== ENCOUNTER 2021-04-15 15:14 | Outpatient (CLI) | payer MEDICARE, MEDICAID, SELFPAY ==
--- NOTE | 2021-04-15 15:30 | US_ITS ---
WS: [id number] ULTRASOUND BREAST RIGHT TECHNIQUE: Ultrasound right breast focused area of concern. CLINICAL INFORMATION: LYMPHADENOPATHY COMPARISON: Ultrasound February 05, 2021 FINDINGS: Ultrasound right axilla. Persistent enlarged lymph nodes in the right axilla the largest today measur es approximately 2.3 x 1.9 x 1.9 CM. This appears slightly progressed compared to previous. Recommend further evaluation with ultrasound-guided biopsy considering persistence. US/US breast RT limited* [id number] IMPRESSION: Recommend ultrasound-guided biopsy right axillary lymph node.
== END 2021-04-15 15:15 | disposition home or self-care (01) ==
LOC: RAD 15:19
PROVIDERS: PCP Family Medicine; Visit Provider Family Medicine
DX: R92.8 Other abnormal and inconclusive findings on diagnostic imaging of breast (principal); R59.0 Localized enlarged lymph nodes
CPT/HCPCS: 76642

== ENCOUNTER 2021-05-16 07:54 | Outpatient (CLI) | payer MEDICARE, MEDICAID, SELFPAY ==
--- NOTE | 2021-05-16 08:00 | US_ITS ---
WS: [id number] ULTRASOUND-GUIDED RIGHT AXILLARY BIOPSY CLINICAL INFORMATION: RIGHT AXILLA COMPARISON: None. FINDINGS: The procedure including risks, benefits, and complications were discussed with the patient who agreed to proceed. Using sterile technique patient was prepped and draped in the usual sterile fashion. Aft er 1% lidocaine utilizing real-time ultrasound guidance 18-gauge cores were obtained of the largest r ight axillary lymph node. Subsequently a titanium clip was placed in the biopsy cavity. No immediate complications. US/US biopsy lymph node [id number] IMPRESSION: 1. Uncomplicated ultrasound-guided right axillary biopsy 2. Pathology is pending.
== END 2021-05-16 07:55 | disposition home or self-care (01) ==
PROVIDERS: PCP Family Medicine; Visit Provider Family Medicine
DX: R59.0 Localized enlarged lymph nodes (principal); E04.2 Nontoxic multinodular goiter
CPT/HCPCS: 38505; 76942; 88184; 88185; 88305

== ENCOUNTER → 2021-07-01 10:51 | Outpatient (BNVA) | payer MEDICARE, MEDICAID, SELFPAY | PROVIDERS: PCP Family Medicine; Visit Provider Internal Medicine | DX: E21.3 Hyperparathyroidism, unspecified (principal); E55.9 Vitamin D deficiency, unspecified; N18.31 Chronic kidney disease, stage 3a; E04.9 Nontoxic goiter, unspecified; E11.9 Type 2 diabetes mellitus without complications | CPT/HCPCS: 99214 ==

== ENCOUNTER 2021-07-02 09:00 | Outpatient (CLI) | payer MEDICARE, MEDICAID, SELFPAY ==
--- NOTE | 2021-07-02 09:31 | US_ITS ---
WS: [id number] ULTRASOUND-GUIDED BILATERAL THYROID NODULE FNAs HISTORY: Bilateral nodules within each thyroid lobe. Procedure, risks, and complications were explained to the patient. Consent has been obtained. Comparison: 03/25/2021 The skin is cleansed with ChloraPrep and anesthetized with 1% buffered lidocaine. FNA performed with 25 gauge needles. surgical technologist is present to fix slides. Biopsies are performed bilaterally within each lobe. The most concerning nodules are targeted. Majori ty of these nodules are very similar in appearance. No complications. US/US biopsy/FNA thyroid [id number] IMPRESSION: Uncomplicated FNA of bilateral thyroid nodules. Final pathology results pending .
[2021-07-02 10:55] LABS: Calcium 9.8 mg/dL (8.5-10.5)
== END 2021-07-02 09:01 | disposition home or self-care (01) ==
LOC: RAD 09:07
PROVIDERS: PCP Family Medicine; Referring Provider Internal Medicine; Visit Provider Otolaryngology
DX: E04.2 Nontoxic multinodular goiter (principal)
CPT/HCPCS: 10005; 10006; 82310; 83970; 88173; 88305

== ENCOUNTER 2021-07-25 09:58 | Outpatient (CLI) | payer MEDICARE, MEDICAID, SELFPAY ==
--- NOTE | 2021-07-25 10:16 | MM_ITS ---
WS: [id number] DIAGNOSTIC BILATERAL DIGITAL MAMMOGRAM WITH CAD HISTORY: SUBCUTANEOUS NODULE OF BREAST COMPARISON: 02/05/2021, 06/25/2020, 03/23/2019 and 04/15/2021 TECHNIQUE: Bilateral craniocaudad, mediolateral oblique, and mediolateral views are submitted. Comput er aided detection utilized. Breast composition: There are scattered areas of fibroglandular density. No suspicious masses or nodu les are identified. In the axilla and axillary tails there are no masses or nodules of any concern. MM/[place] [id number] IMPRESSION: BI-RADS: 2-Benign FOLLOW UP: 1 Year Follow-up
== END 2021-07-25 09:59 | disposition home or self-care (01) ==
PROVIDERS: PCP Family Medicine; Visit Provider Family Medicine
DX: N63.0 Unspecified lump in unspecified breast (principal)
CPT/HCPCS: 77066

== ENCOUNTER → 2021-10-22 08:26 | Outpatient (BNVA) | payer MEDICARE, MEDICAID, SELFPAY | PROVIDERS: PCP Family Medicine; Visit Provider Podiatrist Foot & Ankle Surgery | DX: E11.621 Type 2 diabetes mellitus with foot ulcer (principal); L97.529 Non-pressure chronic ulcer of other part of left foot with unspecified severity; E11.42 Type 2 diabetes mellitus with diabetic polyneuropathy; B35.1 Tinea unguium; M76.822 Posterior tibial tendinitis, left leg; M20.41 Other hammer toe(s) (acquired), right foot; M20.42 Other hammer toe(s) (acquired), left foot; Z91.81 History of falling | CPT/HCPCS: 11056; 11721 ==

== ENCOUNTER → 2022-01-02 10:45 | Outpatient (BNVA) | payer MEDICARE, MEDICAID, SELFPAY | PROVIDERS: PCP Family Medicine; Visit Provider Internal Medicine | DX: E11.65 Type 2 diabetes mellitus with hyperglycemia (principal); E11.649 Type 2 diabetes mellitus with hypoglycemia without coma; E11.22 Type 2 diabetes mellitus with diabetic chronic kidney disease; N18.31 Chronic kidney disease, stage 3a; E21.3 Hyperparathyroidism, unspecified; E04.9 Nontoxic goiter, unspecified; E55.9 Vitamin D deficiency, unspecified; I10 Essential (primary) hypertension; Z79.4 Long term (current) use of insulin | CPT/HCPCS: 36415; 80053; 82310; 83970; 99214 ==

== ENCOUNTER → 2022-01-07 10:41 | Outpatient (BNVA) | payer MEDICARE, MEDICAID, SELFPAY | PROVIDERS: PCP Family Medicine; Visit Provider Otolaryngology | DX: E04.2 Nontoxic multinodular goiter (principal) | CPT/HCPCS: 99213 ==

== ENCOUNTER → 2022-01-21 12:51 | Outpatient (BNVA) | payer MEDICARE, MEDICAID, SELFPAY | PROVIDERS: PCP Family Medicine; Visit Provider Podiatrist Foot & Ankle Surgery | DX: E11.8 Type 2 diabetes mellitus with unspecified complications (principal); E11.621 Type 2 diabetes mellitus with foot ulcer; L97.529 Non-pressure chronic ulcer of other part of left foot with unspecified severity; E11.42 Type 2 diabetes mellitus with diabetic polyneuropathy; B35.1 Tinea unguium; M76.822 Posterior tibial tendinitis, left leg; M20.41 Other hammer toe(s) (acquired), right foot; M20.42 Other hammer toe(s) (acquired), left foot; M79.672 Pain in left foot; Z91.81 History of falling; M21.372 Foot drop, left foot; M25.372 Other instability, left ankle; Z79.4 Long term (current) use of insulin | CPT/HCPCS: 11056; 11721; 99213; 99214 ==

== ENCOUNTER → 2022-02-18 10:28 | Outpatient (BNVA) | payer MEDICARE, MEDICAID, SELFPAY | PROVIDERS: PCP Family Medicine; Visit Provider Internal Medicine | DX: E11.22 Type 2 diabetes mellitus with diabetic chronic kidney disease (principal); E55.9 Vitamin D deficiency, unspecified; E11.65 Type 2 diabetes mellitus with hyperglycemia; N18.31 Chronic kidney disease, stage 3a; E21.3 Hyperparathyroidism, unspecified; E04.9 Nontoxic goiter, unspecified; I95.9 Hypotension, unspecified; E78.2 Mixed hyperlipidemia; Z79.4 Long term (current) use of insulin | CPT/HCPCS: 36415; 82306; 82310; 83970; 99215 ==

== ENCOUNTER 2022-04-01 06:52 | Outpatient (CLI) | payer MEDICARE, MEDICAID, SELFPAY ==
--- NOTE | 2022-04-01 07:00 | US_ITS ---
WS: [id number] THYROID ULTRASOUND HISTORY: Thyroid goiter, Has grown COMPARISON: 03/25/2021 and prior ultrasound 07/02/2021. Right lobe: 2.7 cm x 2.1 cm x 6.5 cm (w x ap x l). Volume: 18.9 cm3. Moderately enlarged nodular heterogeneous gland. There are no discrete well-formed nodules. The entir e gland is nodular. No increased vascularity. Left lobe: 5.2 cm x 2.8 cm x 6.9 cm (w x ap x l). Volume: 52.7 cm3. Markedly enlarged thyroid. Large predominantly solid nodule with a few cystic areas in the mid gland measures 5.9 x 2.6 x 4.3 cm. This nodule was biopsied on the prior study. Isthmus: 0.2 cm. US/US thyroid [id number] IMPRESSION: 1. Marked thyromegaly with multiple nodules. 2. The largest nodule replaces a large portion of the LEFT thyroid. This nodul e has undergone biopsy in the past. There are no echogenic foci or increased va scularity. No very hypoechoic nodule. 3. Moderate enlargement of the LEFT thyroid lobe since the prior study of 03/25.
== END 2022-04-01 06:53 | disposition home or self-care (01) ==
LOC: RAD 06:53
PROVIDERS: PCP Family Medicine; Visit Provider Otolaryngology
DX: E04.2 Nontoxic multinodular goiter (principal)
CPT/HCPCS: 76536

== ENCOUNTER → 2022-05-06 11:02 | Outpatient (BNVA) | payer MEDICARE, MEDICAID, SELFPAY | PROVIDERS: PCP Family Medicine; Visit Provider Podiatrist Foot & Ankle Surgery | DX: E11.42 Type 2 diabetes mellitus with diabetic polyneuropathy (principal); B35.1 Tinea unguium; M76.822 Posterior tibial tendinitis, left leg; M20.41 Other hammer toe(s) (acquired), right foot; M20.42 Other hammer toe(s) (acquired), left foot; M79.672 Pain in left foot; Z91.81 History of falling; E11.621 Type 2 diabetes mellitus with foot ulcer; M21.372 Foot drop, left foot; L97.529 Non-pressure chronic ulcer of other part of left foot with unspecified severity; M25.372 Other instability, left ankle; Z79.4 Long term (current) use of insulin | CPT/HCPCS: 11056; 11721 ==

== ENCOUNTER → 2022-05-20 08:22 | Outpatient (BNVA) | payer MEDICARE, MEDICAID, SELFPAY | PROVIDERS: PCP Family Medicine; Visit Provider Internal Medicine | DX: E11.42 Type 2 diabetes mellitus with diabetic polyneuropathy (principal); E11.65 Type 2 diabetes mellitus with hyperglycemia; E11.22 Type 2 diabetes mellitus with diabetic chronic kidney disease; N18.31 Chronic kidney disease, stage 3a; E78.2 Mixed hyperlipidemia; E04.2 Nontoxic multinodular goiter; E21.3 Hyperparathyroidism, unspecified; R07.89 Other chest pain; E55.9 Vitamin D deficiency, unspecified; I49.9 Cardiac arrhythmia, unspecified; E04.9 Nontoxic goiter, unspecified; Z79.4 Long term (current) use of insulin | CPT/HCPCS: 99214 ==

== ENCOUNTER 2022-05-25 09:17 | Emergency (ER) | payer MEDICARE, MEDICAID, SELFPAY ==
[2022-05-25] VITALS (9 sets, daily range): BP systolic 143–169; BP diastolic 58–81; PULSE 78; RESP 20; TEMP 37.2; O2SAT 93–96
--- NOTE | 2022-05-25 09:24 | XRR_ITS ---
PROCEDURE INFORMATION: Exam: XR Chest Exam date and time: 05/25/2022 10:41 AM Age: 71 years old Clinical indication: Cough and dyspnea; Additional info: Dyspnea/cough TECHNIQUE: Imaging protocol: Radiologic exam of the chest. Views: 1 view. Total images: 1 COMPARISON: CR XR chest 2V* [id number] 07/16/2020 3:57 PM FINDINGS: Lungs: No acute focal pulmonary opacities are detected. Pleural spaces: Unremarkable. No pleural effusion. No pneumothorax. Heart/Mediastinum: Mild cardiomegaly stable. Bones/joints: Osseous structures are unchanged from the prior exam. XR/XR chest 1V portable [id number] IMPRESSION: 1. Mild cardiomegaly stable. 2. No acute focal pulmonary opacities are detected.
--- NOTE | 2022-05-25 09:51 | ECG_ITS ---
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 [email or web address] [email or web address] [email or web address] health system [id number]
--- NOTE | 2022-05-25 10:02 | W.ED.WEAKNES ---
HPI - Weakness General: Chief complaint: Weakness Stated complaint: WEAKNESS Time Seen by Provider: 05/25/22 09:19 Source: patient Mode of arrival: EMS History of Present Illness: 71-year-old female presents emergency room from home. Patient states she she slipped and fell off of a chair. She is unable to get up she is very weak nauseous she denies any fever sweats chills denies any vomiting or diarrhea. She was seen earlier this week for a bladder infection started on oral antibiotics she is complaining of right knee pain which she describes as a 9/10 she denies striking her head or losing consciousness no chest pain or abdominal pain. MD Complaint: generalized weakness Onset (ago): minute(s) Duration: constant Location: generalized Relieving factors: none Exacerbating factors: none Associated symptoms: Denies chest pain, chills, confusion, melena, decreased appetite, diaphoresis, dysuria, easy bruising, fever(s), headache(s), myalgias, nausea, rash, short of breath, syncope or vomiting Review of Systems Const: Reports: fatigue; Denies: fever(s), chills, malaise or diaphoresis ENMT: Denies: throat pain, ear or mastoid pain, nasal discharge or nasal congestion Card: Denies: chest pain or syncope Resp: Denies: dyspnea, productive cough or non-productive cough GI: Denies: abdominal pain, nausea, vomiting or melena : Denies: dysuria, urinary frequency or urinary urgency Musc: Denies: neck pain or back pain Skin/Breast: Denies: rash or pruritus Neuro: Denies: headache(s) or confusion Jr/Lymph: Denies: easy bruising PFSH ED PFSH: Medical History Abnormal cardiovascular stress test Arthritis Atrial fibrillation An EKG was done in the office today since the patient was found to have an irregularly irregular heartbeat. The EKG showed atrial fibrillation with a ventricular response rate of 93 bpm. Frequent PVCs also were noted. Some nonspecific T wave changes. Patient is high risk for bleeding. So she is on aspirin Atypical chest pain Depression Diabetes Hx of needle biopsy Hypertension Irregular heart beat Neuropathy Nonrheumatic aortic valve sclerosis Swelling of lower leg Varicose vein of leg Ventricular arrhythmia Surgical History H/O: hysterectomy History of appendectomy Hx of breast biopsy Hx of cholecystectomy Status post endovenous radiofrequency ablation (RFA) of saphenous vein Family History Father CAD (coronary artery disease) Grandmother Cancer Diabetes Mother Dementia Brother Diabetes Lung disease Family/Other Lung disease Other Hyperlipidemia Hypertension Denies family history of Clotting disorder Chronic kidney disease (CKD) Suicide Anesthesia complication Bleeding disorder Stroke Social History Smoking and tobacco status: never smoked Alcohol intake: never History of recent travel: No Physical Exam Const: COMMON NORMALS: no acute distress GENERAL APPEARANCE: cooperative and comfortable ORIENTATION/CONSCIOUSNESS: Yes awake, Yes oriented to person, Yes oriented to place and Yes oriented to time HENMT: COMMON NORMALS: normocephalic, atraumatic, hearing grossly normal bilaterally, external ears normal, EAC's normal, TM's normal bilaterally, Normal nasal mucous membranes and turbinates present, moist oral mucous membranes and oropharynx normal HEAD & SCALP: normocephalic and atraumatic NOSE: Normal nasal mucous membranes and turbinates present EXTERNAL EAR: Yes external ears normal EXTERNAL AUDITORY CANAL: EAC's normal TYMPANIC MEMBRANE: TM's normal bilaterally Eye: COMMON NORMALS: Equal, round and reactive pupils present, EOMs intact bilaterally, conjunctivae normal and no scleral icterus CONJUNCTIVA: Yes conjunctivae normal PUPIL: Yes Equal, round and reactive pupils present Neck/C-Spine: COMMON NORMALS: full ROM, no lymphadenopathy, supple and no JVD Lymph: LYMPHATIC: no lymphadenopathy noted and no lymphedema noted Resp: COMMON NORMALS: normal respiratory effort, No retractions, No use of accessory muscles and clear to auscultation bilaterally AUSCULTATION: clear to auscultation bilaterally Cardio: COMMON NORMALS: no JVD, regular rate, regular rhythm and No murmurs present (Cardio) RATE: regular rate RHYTHM: regular rhythm GI: COMMON NORMALS: Soft to palpation and No hepatosplenomegaly present AUSCULTATION: Yes normoactive bowel sounds PALPATION: Yes Soft to palpation, No Tenderness to palpation present (GI), No Guarding due to palpation present (GI) and Yes No hepatosplenomegaly present Extremity: COMMON NORMALS: normal to inspection, capillary refill normal, no clubbing, cyanosis or edema, no calf tenderness and no pedal edema Neuro: SENSORIUM/ORIENTATION: Yes oriented to person, Yes oriented to place and Yes oriented to time Skin: COMMON NORMALS: no rashes or lesions noted GENERAL SKIN EXAM: no rashes or lesions noted Course Vital Signs: Vital signs: Vital Signs Temperature 99 F 05/25/22 09:28 Pulse Rate 78 05/25/22 09:28 Respiratory Rate 20 H 05/25/22 09:28 Blood Pressure 164/58 05/25/22 12:30 Pulse Oximetry 96 05/25/22 13:30 Oxygen Delivery Me thod 05/25/22 09:28 MDM - Weakness Medical Decision Making Labs and imaging are reviewed no acute changes on EKG or chest x-ray. Patient is feeling somewhat better we will give her some IV fluids knee x-ray was negative she is very mildly hyponatremic we will discharge her home have her follow-up with her primary care doc within the next week. Medical Records I reviewed the patient's medical records. Lab Data 05/25/22 09:40 05/25/22 09:40 Radiology Impressions Chest X-Ray 05/25/22 09:24 IMPRESSION: 1. Mild cardiomegaly stable. 2. No acute focal pulmonary opacities are detected. Knee X-Ray 05/25/22 10:03 IMPRESSION: 1. Three compartment degenerative changes are noted with joint space narrowing and osteophyte formation. 2. No acute osseous pathology. Laboratory Results WBC 10.7 10^3/uL (4.0-10.0) H 05/25/22 09:40 RBC 3.75 10^6/uL (4.1-5.3) L 05/25/22 09:40 Hgb 11.1 g/dL (11.5-15.3) L 05/25/22 09:40 Hct 34.5 % (37.0-47.0) L 05/25/22 09:40 MCV 92.0 fl (81-99) 05/25/22 09:40 MCH 29.6 pg (28.0-34.0) 05/25/22 09:40 MCHC 32.2 g/dL (30.0-36.0) 05/25/22 09:40 RDW 12.4 % (12.1-15.1) 05/25/22 09:40 Plt Count 213 10^3/cmm (130-400) 05/25/22 09:40 MPV 11.5 fL (7.4-10.4) H 05/25/22 09:40 Neut % (Auto) 80.6 % 05/25/22 09:40 Lymph % (Auto) 10.3 % 05/25/22 09:40 [place] % (Auto) 8.4 % 05/25/22 09:40 Eos % (Auto) 0.1 % 05/25/22 09:40 Baso % (Auto) 0.2 % 05/25/22 09:40 Neut # (Auto) 8.60 10^3/uL (1.8-7.7) H 05/25/22 09:40 Lymph # (Auto) 1.1 10^3/uL (0.8-4.8) 05/25/22 09:40 [place] # (Auto) 0.9 10^3/uL (0.2-0.9) 05/25/22 09:40 Eos # (Auto) 0.0 10^3/uL (0.0-0.8) 05/25/22 09:40 Baso # (Auto) 0.0 10^3/uL (0.0-0.1) 05/25/22 09:40 Nucleated RBC % (auto) 0 % 05/25/22 09:40 Nucleated RBCs # 0.0 /100WBC 05/25/22 09:40 Sodium 125 mmol/L (136-145) L 05/25/22 09:40 Potassium 4.5 mmol/L (3.5-5.1) 05/25/22 09:40 Chloride 95 mmol/L (98-107) L 05/25/22 09:40 Carbon Dioxide 22 mmol/L (22-29) 05/25/22 09:40 Anion Gap 12.5 (5-19) 05/25/22 09:40 BUN 21 mg/dL (8-23) 05/25/22 09:40 Creatinine 1.2 mg/dL (0.5-0.9) H 05/25/22 09:40 GFR Calculation 44.5 mL/min (90-130) L 05/25/22 09:40 Glucose 204 mg/dL (65-115) H 05/25/22 09:40 Calculated Osmolality 269 mOsm/kg (285-295) L 05/25/22 09:40 Calcium 9.5 mg/dL (8.5-10.5) 05/25/22 09:40 Total Bilirubin 0.8 mg/dL (0.15-1.2) 05/25/22 09:40 AST 13 U/L (0-32) 05/25/22 09:40 ALT 9 U/L (0-33) 05/25/22 09:40 Alkaline Phosphatase 58 U/L (35-105) 05/25/22 09:40 Total Protein 6.9 g/dL (6.6-8.7) 05/25/22 09:40 Albumin 3.4 g/dL (3.5-5.2) L 05/25/22 09:40 Globulin 3.5 g/dL (1.3-4.6) 05/25/22 09:40 Urine Color Yellow (Yellow) 05/25/22 11:40 Urine Appearance Clear (CLEAR) 05/25/22 11:40 Urine pH 7 (5-7) 05/25/22 11:40 Ur Specific [place] 1.010 (1.005-1.030) 05/25/22 11:40 Urine Protein Neg (Negative) 05/25/22 11:40 Urine Glucose (UA) Trace (Normal) H 05/25/22 11:40 Urine Ketones Negative (Negative) 05/25/22 11:40 Urine Blood 2+ (Negative) H 05/25/22 11:40 Urine Nitrate Negative (Negative) 05/25/22 11:40 Urine Bilirubin Neg (Negative) 05/25/22 11:40 Urine Urobilinogen Neg mg/dL (Negative) 05/25/22 11:40 Ur Leukocyte Esterase Trace (Negative) H 05/25/22 11:40 Urine RBC 0-4 /hpf (0-2) H 05/25/22 11:40 Urine WBC 0-4 /hpf (0-5) H 05/25/22 11:40 Ur Squamous Epith Cells 0-4 /hpf (0-5) H 05/25/22 11:40 Amorphous Sediment Not Reportable 05/25/22 11:40 Urine Bacteria None /hpf (NONE) 05/25/22 11:40 Influenza Type A Ag negative (Negative) 05/25/22 09:40 Influenza Type B Ag negative (Negative) 05/25/22 09:40 Discharge Plan Discharge Patient Disposition: Home Clinical Impression: Hyponatremia, Diabetic peripheral neuropathy associated with type 2 diabetes mellitus Condition: Stable Prescriptions: No Action (DME) Diabetic shoes with inserts Qty: 1 0RF Rx Instructions: As directed (DME) Articulating AFO ankle brace Qty: 1 0RF Rx Instructions: As directed cholecalciferol (vitamin D3) 50 mcg (2,000 unit) capsule 50 mcg PO DAILY tumeric PO insulin glargine [Lantus U-100 Insulin] 100 unit/mL solution 50 unit SUBCUT DAILY Qty: 50 3RF Rx Instructions: Inject 50 units subcut once a day. (DME) pen needle, diabetic [Comfort EZ Pen Dexter] 32 gauge x 5/32 needle See Rx Instructions .Route Qty: 300 3RF Rx Instructions: As directed (DME) Dexcom G6 Presser Cotton Ginning Misc See Rx Instructions .Route Qty: 1 0RF Rx Instructions: Check BS 4-6 times a day. simvastatin 40 mg tablet 40 mg PO DAILY multivitamin Tablet 1 tab PO DAILY omega-3 fatty acids [Fish Oil Concentrate] 1,000 mg capsule 1,000 mg PO DAILY (DME) Dexcom G6 Sensor Device See Rx Instructions .Route Qty: 9 3RF Rx Instructions: Change every 10 days. (DME) Dexcom G6 Transmitter Device See Rx Instructions .Route Qty: 3 3RF Rx Instructions: Change every 90 days. (DME) FreeStyle [place] 2 [place] Misc See Rx Instructions .Route Qty: 1 0RF Rx Instructions: [place] [place]Style [place] 2 Sensor Kit See Rx Instructions .Route Qty: 6 3RF Rx Instructions: As directed isosorbide mononitrate 60 mg tablet extended release 24 hr 60 mg PO DAILY MDD take it in the evening Qty: 90 3RF lisinopril 40 mg tablet 40 mg PO QAM Qty: 90 3RF amlodipine 5 mg tablet 5 mg PO QAM Qty: 90 3RF metoprolol succinate 25 mg tablet extended release 24 hr 25 mg PO .qpm Qty: 100 3RF (DME) insulin syringe-needle U-100 1 mL 31 gauge x 5/16 syringe See Rx Instructions .ROUTE .COMPLEX Qty: 300 0RF Dose Instruction: USE DIRECTED Rx Instructions: USE DIRECTED potassium chloride 10 mEq capsule, extended release 10 meq PO DAILY Qty: 90 1RF insulin lispro [Humalog KwikPen Insulin] 100 unit/mL insulin pen See Rx Instructions SUBCUT TID Qty: 45 3RF Rx Instructions: Sliding scale three times a day. SUBCUT three times daily; torsemide 20 mg tablet 20 mg PO DAILY Qty: 90 1RF (DME) [place] Balance Brace to the Left See Rx Instructions .Route .MEDSUPPLY Qty: 1 0RF Rx Instructions: As directed by [employer] [place] nitroglycerin 0.4 mg tablet, sublingual See Rx Instructions .ROUTE .COMPLEX Qty: 100 3RF Dose Instruction: DISSOLVE 1 TABLET UNDER THE TONGUE EVERY 5 MINUTES NEEDED FOR CHEST PAIN. MAX OF 3 TABLETS IN 15 MINUTES. CALL 911 IF PAIN PERSISTS. Rx Instructions: DISSOLVE 1 TABLET UNDER THE TONGUE EVERY 5 MINUTES NEEDED FOR CHEST PAIN. MAX OF 3 TABLETS IN 15 MINUTES. CALL 911 IF PAIN PERSISTS. Discharge Orders: Discharge ED (Routine); Ordered 05/25/22 Ordered By: Kristopher Arriola Referrals: Carlo Jason MD [Primary Care Provider] - Patient Instructions: Opioid Safety, Pain Management Activity Restrictions/Additional Instructions: You were seen for weakness in the emergency room. You have a mild anemia and your sodium is low. Your symptoms improved after IV fluids. Continue your current medications I do recommend that you follow-up with your doctor to recheck your sodium level within the next 4 to 5 days. Coding Level of Care Code ED Novelty Candy Maker for Nile Solomon
--- NOTE | 2022-05-25 10:03 | XRR_ITS ---
PROCEDURE INFORMATION: Exam: XR Right Knee Exam date and time: 05/25/2022 11:14 AM Age: 71 years old Clinical indication: Pain; Knee; Right TECHNIQUE: Imaging protocol: Radiologic exam of the Right knee. Views: 3 views. Total images: 0 COMPARISON: No relevant prior studies available. FINDINGS: Bones/joints: Three compartment degenerative changes are noted with joint space narrowing and osteophyte formation. Large marginal osteophytes are noted. Enthesophyte of the quadriceps tendon insertion site on the patella. Patellar tendon enthesophyte formation. No acute fracture nor subluxation. No osseous erosion nor periosteal reaction. Soft tissues: Normal. XR/XR knee RT 3V* [id number] IMPRESSION: 1. Three compartment degenerative changes are noted with joint space narrowing and osteophyte formation. 2. No acute osseous pathology.
[2022-05-25 10:20] LABS: Basophils % 0.2 %; Eosinophils % 0.1 %; Hematocrit 34.5 % (37.0-47.0); Hemoglobin 11.1 g/dL (11.5-15.3); Lymphocytes # 1.1 10^3/uL (0.8-4.8); Lymphocytes % 10.3 %; Mean Corpuscular HGB Conc 32.2 g/dL (30.0-36.0); Mean Corpuscular Hemoglobin 29.6 pg (28.0-34.0); Mean Platelet Volume 11.5 fL (7.4-10.4); Monocytes # 0.9 10^3/uL (0.2-0.9); Monocytes % 8.4 %; Neutrophils % 80.6 %; Nucleated Red Blood Cells % 0 %; Platelet Count 213 10^3/cmm (130-400); Red Blood Count 3.75 10^6/uL (4.1-5.3); Red Cell Distribution Width 12.4 % (12.1-15.1); White Blood Count 10.7 10^3/uL (4.0-10.0)
[2022-05-25 10:31] LABS: Alanine Aminotransferase 9 U/L (0-33); Albumin Level 3.4 g/dL (3.5-5.2); Alkaline Phosphatase 58 U/L (35-105); Aspartate Amino Transferase 13 U/L (0-32); Blood Urea Nitrogen 21 mg/dL (8-23); Calcium 9.5 mg/dL (8.5-10.5); Carbon Dioxide 22 mmol/L (22-29); Chloride 95 mmol/L (98-107); Globulin 3.5 g/dL (1.3-4.6); Glomerular Filtration Rate 44.5 mL/min (90-130); Glucose 204 mg/dL (65-115); Osmolality Calculated 269 mOsm/kg (285-295); Sodium 125 mmol/L (136-145); Total Bilirubin 0.8 mg/dL (0.15-1.2); Total Protein 6.9 g/dL (6.6-8.7)
[2022-05-25 10:46] LABS: Influenza A by IFA negative (Negative); Influenza B by IFA negative (Negative)
[2022-05-25 10:50] LABS: Anion Gap 12.5 (5-19); Potassium 4.5 mmol/L (3.5-5.1)
[2022-05-25] MEDS: sodium chloride 0.9% 1,000 ML 999 ML IV (11:13)
[2022-05-25 12:34] LABS: Add Urine Microscopic? YES; Bilirubin Urine Neg (Negative); Blood Urine 2+ (Negative); Glucose Urine UA Trace (Normal); Ketones Urine Negative (Negative); Leukocyte Esterase Urine Trace (Negative); Nitrate Urine Negative (Negative); Protein Urine Neg (Negative); Urine Appearance Clear (CLEAR); Urine Color Yellow (Yellow); Urobilinogen Urine Neg (Negative); pH Urine 7 (5-7)
[2022-05-25 12:49] LABS: RBC Urine 0-4 /hpf (0-2); Squamous Epithelial Cell Urine 0-4 /hpf (0-5); WBC Urine 0-4 /hpf (0-5)
== END 2022-05-25 13:30 | disposition home or self-care (01) ==
PROVIDERS: Emergency Provider Family Medicine; PCP Family Medicine
DX: E87.1 Hypo-osmolality and hyponatremia (principal); E11.42 Type 2 diabetes mellitus with diabetic polyneuropathy; M25.561 Pain in right knee; Z79.4 Long term (current) use of insulin
CPT/HCPCS: 71045; 73562; 80053; 81001; 85025; 87804; 93005; 96360; 99285; J7030

== ENCOUNTER → 2022-06-03 13:08 | Outpatient (BNVA) | payer MEDICARE, MEDICAID, SELFPAY | PROVIDERS: PCP Family Medicine; Visit Provider Otolaryngology | DX: Z09 Encounter for follow-up examination after completed treatment for conditions other than malignant neoplasm (principal); E04.9 Nontoxic goiter, unspecified | CPT/HCPCS: 99212; 99213 ==

== ENCOUNTER 2022-06-13 08:15 | Outpatient (CLI) | payer MEDICARE, MEDICAID, SELFPAY ==
--- NOTE | 2022-06-13 08:23 | NM_ITS ---
WS: [id number] NUCLEAR MEDICINE PARATHYROID ADENOMA INDICATION: Hyperparathyroidism TECHNIQUE: 18.3 mCi technetium 99m sestamibi. Early and late imaging was obtained with suprasternal a nd chin markers. FINDINGS: Comparison prior ultrasound April 01, 2022 Enlarged LEFT greater than RIGHT thyroid lobes corresponding to the prior ultrasound findings. Cold n odule LEFT upper thyroid likely corresponds to the previously described nodule on the ultrasound. Thi s was reportedly previously biopsied. Normal salivary gland uptake. No definite evidence of parathyroid adenoma on the delayed imaging. Slight nodularity inferior pole L EFT thyroid although not convincing for adenoma. NM/NM parathyroid 15169 IMPRESSION: No definite evidence of parathyroid adenoma on the delayed imaging. Slight nodularity inferior pole LEFT thyroid although not convincing for adeno ma.
== END 2022-06-13 08:16 | disposition home or self-care (01) ==
LOC: RAD 08:15
PROVIDERS: PCP Family Medicine; Visit Provider Internal Medicine
DX: E21.3 Hyperparathyroidism, unspecified (principal)
CPT/HCPCS: 78070; A9500

== ENCOUNTER → 2022-07-08 09:59 | Outpatient (BNVA) | payer MEDICARE, MEDICAID, SELFPAY | PROVIDERS: PCP Family Medicine; Visit Provider Podiatrist Foot & Ankle Surgery | DX: E11.8 Type 2 diabetes mellitus with unspecified complications (principal); E11.42 Type 2 diabetes mellitus with diabetic polyneuropathy; B35.1 Tinea unguium; M76.822 Posterior tibial tendinitis, left leg; M20.41 Other hammer toe(s) (acquired), right foot; M20.42 Other hammer toe(s) (acquired), left foot; E11.621 Type 2 diabetes mellitus with foot ulcer; M21.372 Foot drop, left foot; M25.372 Other instability, left ankle; L97.529 Non-pressure chronic ulcer of other part of left foot with unspecified severity; Z79.4 Long term (current) use of insulin | CPT/HCPCS: 11056; 11721 ==

== ENCOUNTER → 2022-07-11 10:54 | Outpatient (BNVA) | payer MEDICARE, MEDICAID, SELFPAY | PROVIDERS: PCP Family Medicine; Visit Provider Internal Medicine Cardiovascular Disease | DX: E78.2 Mixed hyperlipidemia (principal); I48.92 Unspecified atrial flutter; I83.93 Asymptomatic varicose veins of bilateral lower extremities; E11.65 Type 2 diabetes mellitus with hyperglycemia; E11.42 Type 2 diabetes mellitus with diabetic polyneuropathy; I48.19 Other persistent atrial fibrillation; I35.8 Other nonrheumatic aortic valve disorders; I12.9 Hypertensive chronic kidney disease with stage 1 through stage 4 chronic kidney disease, or unspecified chronic kidney disease; E11.22 Type 2 diabetes mellitus with diabetic chronic kidney disease; N18.31 Chronic kidney disease, stage 3a; Z79.4 Long term (current) use of insulin | CPT/HCPCS: 99213 ==

== ENCOUNTER 2022-08-12 07:48 | Outpatient (CLI) | payer MEDICARE, MEDICAID, SELFPAY ==
[2022-08-12 08:47] LABS: Alanine Aminotransferase 11 U/L (0-33); Albumin Level 3.9 g/dL (3.5-5.2); Alkaline Phosphatase 57 U/L (35-105); Anion Gap 16.7 (5-19); Aspartate Amino Transferase 13 U/L (0-32); Blood Urea Nitrogen 30 mg/dL (8-23); Calcium 10.2 mg/dL (8.5-10.5); Carbon Dioxide 25 mmol/L (22-29); Chloride 104 mmol/L (98-107); Cholesterol 102 mg/dL (0-200); Estmated Average Glucose 171; Globulin 3.2 g/dL (1.3-4.6); Glomerular Filtration Rate 37.2 mL/min (90-130); Glucose 200 mg/dL (65-115); HDL Cholesterol 34 mg/dL (60-100); Hemoglobin A1C 7.6 % (4.0-6.0); LDL Cholesterol Calculated 42 mg/dL (50-129); LDL HDL Ratio 1.24 RATIO (0.00-3.22); Osmolality Calculated 304 mOsm/kg (285-295); Potassium 4.7 mmol/L (3.5-5.1); Sodium 141 mmol/L (136-145); Thyroid Stimulating Hormone 4.02 uIU/mL (0.27-4.20); Total Bilirubin 0.3 mg/dL (0.15-1.2); Total Protein 7.1 g/dL (6.6-8.7); Triglycerides 129 mg/dL (0-150)
[2022-08-12 12:22] LABS: 25 Hydroxy Vitamin D 31 ng/mL (30-100)
[2022-08-12 14:23] LABS: Calcium 10.2 mg/dL (8.5-10.5); Parathyroid Hormone 76.1 pg/mL (15-65)
== END 2022-08-12 07:49 | disposition home or self-care (01) ==
LOC: LAB 07:52
PROVIDERS: PCP Family Medicine; Visit Provider Internal Medicine
DX: E04.2 Nontoxic multinodular goiter (principal); E11.65 Type 2 diabetes mellitus with hyperglycemia; E21.3 Hyperparathyroidism, unspecified; E78.2 Mixed hyperlipidemia; I49.9 Cardiac arrhythmia, unspecified; N18.30 Chronic kidney disease, stage 3 unspecified; R07.89 Other chest pain; E11.42 Type 2 diabetes mellitus with diabetic polyneuropathy; E55.9 Vitamin D deficiency, unspecified
CPT/HCPCS: 80053; 80061; 82306; 82310; 83036; 83970; 84443

== ENCOUNTER 2022-08-20 09:40 | Emergency (ER) | payer MEDICARE, MEDICAID, SELFPAY ==
[2022-08-20 09:47] VITALS: BP 167/77; PULSE 60; RESP 16; TEMP 36.4; O2SAT 96
[2022-08-20 10:13] VITALS: BP 167/77; PULSE 60; RESP 16; TEMP 36.4; O2SAT 96
--- NOTE | 2022-08-20 10:20 | W.ED.GENADLT ---
HPI - General Adult General: Chief complaint: General Medical Stated complaint: low B/P sent by PCP Time Seen by Provider: 08/20/22 09:41 History of Present Illness: Patient presented to the ER for presumed hypotension on arrival here she felt fine she initially seen the nurse blood pressures were normal. I had signed up for the chart and ordered preliminary labs based on the nurses chief complaint and stated complaint. Patient elected not to be seen for left before I was able to see the patient. [facility] ED PFSH: Medical History Abnormal cardiovascular stress test Arthritis Atrial fibrillation An EKG was done in the office today since the patient was found to have an irregularly irregular heartbeat. The EKG showed atrial fibrillation with a ventricular response rate of 93 bpm. Frequent PVCs also were noted. Some nonspecific T wave changes. Patient is high risk for bleeding. So she is on aspirin Atypical chest pain Depression Diabetes Hx of needle biopsy Hypertension Irregular heart beat Neuropathy Nonrheumatic aortic valve sclerosis Swelling of lower leg Varicose vein of leg Ventricular arrhythmia Surgical History H/O: hysterectomy History of appendectomy Hx of breast biopsy Hx of cholecystectomy Status post endovenous radiofrequency ablation (RFA) of saphenous vein Family History Father CAD (coronary artery disease) Grandmother Cancer Diabetes Mother Dementia Brother Diabetes Lung disease Family/Other Lung disease Other Hyperlipidemia Hypertension Denies family history of Clotting disorder Chronic kidney disease (CKD) Suicide Anesthesia complication Bleeding disorder Stroke Social History Smoking and tobacco status: never smoked Alcohol intake: never Course Vital Signs: Vital signs: Vital Signs Temperature 97.6 F 08/20/22 10:13 Pulse Rate 60 08/20/22 10:13 Respiratory Rate 16 08/20/22 10:13 Blood Pressure 167/77 08/20/22 10:13 Pulse Oximetry 96 08/20/22 10:13 Oxygen Delivery Me thod 08/20/22 09:47 MDM - General Adult Medical Decision Making Patient declined to be seen after arriving here and blood pressure was evaluated normal by the nurse Discharge Plan Discharge Patient Disposition: Home Clinical Impression: Hypertension, Diabetes Prescriptions: No Action (DME) Diabetic shoes with inserts Qty: 1 0RF Rx Instructions: As directed (DME) Articulating AFO ankle brace Qty: 1 0RF Rx Instructions: As directed cholecalciferol (vitamin D3) 50 mcg (2,000 unit) capsule 50 mcg PO DAILY insulin glargine [Lantus U-100 Insulin] 100 unit/mL solution 50 unit SUBCUT DAILY Qty: 50 3RF Rx Instructions: Inject 50 units subcut once a day. (DME) pen needle, diabetic [Comfort EZ Pen [place]] 32 gauge x 5/32 needle See Rx Instructions .Route Qty: 300 3RF Rx Instructions: As directed simvastatin 40 mg tablet 40 mg PO DAILY multivitamin Tablet 1 tab PO DAILY omega-3 fatty acids [Fish Oil Concentrate] 1,000 mg capsule 1,000 mg PO DAILY (DME) Diabetic Shoes with 3 pairs of inserts (Right 10.5 wide and Left 12 wide to accommodate bracing) See Rx Instructions .Route .MEDSUPPLY Qty: 1 0RF Rx Instructions: As directed HOME (DME) Dexcom G6 Senior Oracle Database Administrator Misc See Rx Instructions .ROUTE .MEDSUPPLY Qty: 1 0RF Rx Instructions: Change once every year (DME) Dexcom G6 Sensor Device See Rx Instructions .ROUTE .MEDSUPPLY Qty: 9 2RF Rx Instructions: change every 10 days (DME) Dexcom G6 Sensor Device See Rx Instructions .ROUTE .MEDSUPPLY Qty: 9 2RF Rx Instructions: change every 10 days (DME) FreeStyle [place] 2 [place] Misc See Rx Instructions .Route Qty: 1 0RF Rx Instructions: As directed (DME) FreeStyle [place] 2 Sensor Kit See Rx Instructions .Route Qty: 6 3RF Rx Instructions: As directed isosorbide mononitrate 60 mg tablet extended release 24 hr 60 mg PO DAILY MDD take it in the evening Qty: 90 3RF amlodipine 5 mg tablet 5 mg PO QAM Qty: 90 3RF metoprolol succinate 25 mg tablet extended release 24 hr 25 mg PO .qpm Qty: 100 3RF (DME) insulin syringe-needle U-100 1 mL 31 gauge x 5/16 syringe See Rx Instructions .ROUTE .COMPLEX Qty: 300 0RF Dose Instruction: USE DIRECTED Rx Instructions: USE DIRECTED potassium chloride 10 mEq capsule, extended release 10 meq PO DAILY Qty: 90 1RF insulin lispro [Humalog KwikPen Insulin] 100 unit/mL insulin pen See Rx Instructions SUBCUT TID Qty: 45 3RF Rx Instructions: Sliding scale three times a day. SUBCUT three times daily; torsemide 20 mg tablet 20 mg PO DAILY Qty: 90 1RF (DME) [place] Balance Brace to the Left See Rx Instructions .Route .MEDSUPPLY Qty: 1 0RF Rx Instructions: As directed by [employer] [facility] [place] nitroglycerin 0.4 mg tablet, sublingual See Rx Instructions .ROUTE .COMPLEX Qty: 100 3RF Dose Instruction: DISSOLVE 1 TABLET UNDER THE TONGUE EVERY 5 MINUTES NEEDED FOR CHEST PAIN. MAX OF 3 TABLETS IN 15 MINUTES. CALL 911 IF PAIN PERSISTS. Rx Instructions: DISSOLVE 1 TABLET UNDER THE TONGUE EVERY 5 MINUTES NEEDED FOR CHEST PAIN. MAX OF 3 TABLETS IN 15 MINUTES. CALL 911 IF PAIN PERSISTS. lisinopril 40 mg tablet 40 mg PO QAM Qty: 100 3RF Discharge Orders: Discharge ED (Routine); Ordered 08/20/22 Ordered By: Kristopher Arriola Referrals: Carlo Jason MD [Primary Care Provider] - Coding Level of Care Code ED Preanalytics Team Lead for Nile Solomon
== END 2022-08-20 10:14 | disposition home or self-care (01) ==
PROVIDERS: Emergency Provider Family Medicine; PCP Family Medicine
DX: E11.65 Type 2 diabetes mellitus with hyperglycemia (principal); E11.42 Type 2 diabetes mellitus with diabetic polyneuropathy; E11.22 Type 2 diabetes mellitus with diabetic chronic kidney disease; N18.31 Chronic kidney disease, stage 3a; E04.2 Nontoxic multinodular goiter; E21.3 Hyperparathyroidism, unspecified; E04.9 Nontoxic goiter, unspecified; E78.2 Mixed hyperlipidemia; E55.9 Vitamin D deficiency, unspecified; I95.9 Hypotension, unspecified; Z79.4 Long term (current) use of insulin
CPT/HCPCS: 99215

== ENCOUNTER 2022-08-22 10:16 | Outpatient (CLI) | payer MEDICARE, MEDICAID, SELFPAY ==
--- NOTE | 2022-08-22 10:25 | MM_ITS ---
WS: [id number] VIEWS: MLO and CC views both breasts. 3D digital tomosynthesis is also included in this exam. Comparison made with prior exam of 09/09/2010, 10/13/2011, 03/23/2019, 06/25/2020, 02/05/2021, 07/25/2021. . Findings: There was no sign of mass, architectural distortion or suspicious calcification in either breast. Sc attered fibroglandular densities MM/[place] [id number] Impression: BI-RADS: 2-Benign FOLLOW-UP: 1 Year Follow-up This mammogram was also analyzed by the Computer Aided Detection System R2 Imag e Director Fixed Income.
== END 2022-08-22 10:17 | disposition home or self-care (01) ==
PROVIDERS: PCP Family Medicine; Visit Provider Family Medicine
DX: Z12.31 Encounter for screening mammogram for malignant neoplasm of breast (principal)
CPT/HCPCS: 77063; 77067

== ENCOUNTER → 2022-10-16 10:47 | Outpatient (BNVA) | payer MEDICARE, MEDICAID, SELFPAY | PROVIDERS: PCP Family Medicine; Visit Provider Podiatrist Foot & Ankle Surgery | DX: E11.8 Type 2 diabetes mellitus with unspecified complications (principal); E11.42 Type 2 diabetes mellitus with diabetic polyneuropathy; B35.1 Tinea unguium; M76.822 Posterior tibial tendinitis, left leg; M20.41 Other hammer toe(s) (acquired), right foot; M20.42 Other hammer toe(s) (acquired), left foot; Z91.81 History of falling; E11.621 Type 2 diabetes mellitus with foot ulcer; M21.372 Foot drop, left foot; M25.372 Other instability, left ankle; L85.8 Other specified epidermal thickening; Z79.4 Long term (current) use of insulin | CPT/HCPCS: 11056; 11721 ==

== ENCOUNTER → 2022-11-19 08:16 | Outpatient (BNVA) | payer MEDICARE, MEDICAID, SELFPAY | PROVIDERS: PCP Family Medicine; Visit Provider Internal Medicine | DX: E11.65 Type 2 diabetes mellitus with hyperglycemia (principal); E78.2 Mixed hyperlipidemia; E04.2 Nontoxic multinodular goiter; E21.3 Hyperparathyroidism, unspecified; E55.9 Vitamin D deficiency, unspecified; I95.9 Hypotension, unspecified; Z79.4 Long term (current) use of insulin | CPT/HCPCS: 36415; 80053; 80061; 82044; 82306; 82310; 83036; 83970; 84439; 84443; 99214 ==

== ENCOUNTER → 2022-12-02 14:41 | Outpatient (BNVA) | payer MEDICARE, MEDICAID, SELFPAY | PROVIDERS: PCP Family Medicine; Visit Provider Nurse Practitioner Family | DX: I48.92 Unspecified atrial flutter (principal); I49.9 Cardiac arrhythmia, unspecified; I10 Essential (primary) hypertension; I44.0 Atrioventricular block, first degree | CPT/HCPCS: 93005; 99214 ==

== ENCOUNTER → 2022-12-04 10:49 | Outpatient (BNVA) | payer MEDICARE, MEDICAID, SELFPAY | PROVIDERS: PCP Family Medicine; Visit Provider Podiatrist Foot & Ankle Surgery | DX: E11.42 Type 2 diabetes mellitus with diabetic polyneuropathy (principal); M76.822 Posterior tibial tendinitis, left leg; M20.41 Other hammer toe(s) (acquired), right foot; M20.42 Other hammer toe(s) (acquired), left foot; B35.1 Tinea unguium; Z91.81 History of falling; M25.372 Other instability, left ankle; Z79.4 Long term (current) use of insulin | CPT/HCPCS: 11056; 11721 ==

== ENCOUNTER 2022-12-05 12:41 | Outpatient (CLI) | payer MEDICARE, MEDICAID, SELFPAY ==
--- NOTE | 2022-12-05 13:15 | USCV_ITS ---
Merly Guillen Age: 72 Gender: F : 1950 Exam Date: 12/05/2022 13:33 Ordering Phys: Maya Jimenez Technologist: CHUN Exam Location: [facility] [place] Indication: NEW 2ND DEGREE AVD BP: 128 / 60 HR: 65 Rhythm: Sinus Technical Quality: Adequate MEASUREMENTS (Male / Female) Normal Values 2D ECHO LVOT Diameter 2.0 cm LV Ejection Fraction MOD 2C 65.5 % LV Ejection Fraction 2C AL 64.3 % LA Diameter 4.2 cm LA Width 4.8 cm LA Height 5.8 cm RA Width 3.6 cm RA Height 4.7 cm Aorta at Sinotubular Diameter 2.3 cm IVC Diameter 1.8 cm M-MODE Aortic Annulus Diameter 2.6 cm LA Ao Ratio MM 1.8 MV E Point Septal Separation 0.6 cm DOPPLER AV Peak Velocity 221.0 cm/s LVOT Peak Velocity 104.0 cm/s AV Area Cont Eq vti 1.6 cm squared AV Area Cont Eq pk 1.5 cm squared MV Peak Velocity 210.0 cm/s MV Area PHT 2.7 cm squared MV E' Velocity 68.0 cm/s Mitral E to MV E' Ratio 11.8 Mitral E to LV E' Lateral Ratio 12.0 Mitral E to LV E' Septal Ratio 11.7 TR Peak Velocity 240.1 cm/s TR Peak Gradient 23.1 mmHg TR Mean Velocity 195.9 cm/s TR Mean Gradient 15.9 mmHg TR Velocity Time Integral 79.2 cm TV Peak E Velocity 75.0 cm/s Right Atrial Pressure 3.0 mmHg Pulmonary Artery Systolic Pressu 26.1 mmHg RV Acceleration Time 0.1 s RV Ejection Time 0.3 s RV AcT/ET 0.4 FINDINGS Left Ventricle Normal left ventricular size, systolic function and wall thickness. Left ventricular ejection fraction is estimated at 65 %. Mild hypokinesis of basal inferior wall. Rhythm precludes evaluation of diastolic function. Abnormal septal motion. Right Ventricle Normal right ventricular size and systolic function. Right ventricular systolic pressure 26.1 mmHg. Right Atrium Normal right atrial size. Left Atrium Moderately increased left atrial size. Mitral Valve Mildly thickened mitral valve. No mitral valve stenosis. Mild to moderate mitral valve regurgitation. Aortic Valve Structurally normal trileaflet aortic valve. No aortic valve stenosis. No aortic valve regurgitation. Tricuspid Valve Structurally normal tricuspid valve. No tricuspid valve stenosis. Trace tricuspid valve regurgitation. Pulmonic Valve Structurally normal pulmonic valve. No pulmonary valve stenosis. Trace pulmonary valve regurgitation. Pericardium No pericardial effusion. Aorta Normal size aortic root and proximal ascending aorta. IVC Normal IVC dimension with >50% respiratory change of the inferior vena cava. CONCLUSIONS 1. Normal left ventricular size, systolic function and wall thickness. Left ventricular ejection fraction is estimated at 65 %. Mild hypokinesis of basal inferior wall. 2. Mild to moderate mitral valve regurgitation. 3. Compared to study dated 08/06/2020, may not have been any significant change. Halley Calderon MD (Electronically Signed) Final Date: 11 December 2022 16:31 S
[2022-12-05] MEDS: perflutren protein-a microsphr 0.22 mg/mL SDV 3 mL IV (14:12)
== END 2022-12-05 12:42 | disposition home or self-care (01) ==
LOC: RAD 12:43
PROVIDERS: PCP Family Medicine; Visit Provider Nurse Practitioner Family
DX: I44.39 Other atrioventricular block (principal); I34.0 Nonrheumatic mitral (valve) insufficiency
CPT/HCPCS: C8929; Q9956

== ENCOUNTER → 2022-12-18 13:48 | Outpatient (BNVA) | payer MEDICARE, MEDICAID, SELFPAY | PROVIDERS: PCP Family Medicine; Visit Provider Specialist | DX: I44.39 Other atrioventricular block (principal); I48.92 Unspecified atrial flutter; I10 Essential (primary) hypertension; E78.2 Mixed hyperlipidemia | CPT/HCPCS: 99214 ==

== ENCOUNTER → 2022-12-24 10:44 | Outpatient (BNVA) | payer MEDICARE, MEDICAID, SELFPAY | PROVIDERS: PCP Family Medicine; Visit Provider Internal Medicine Cardiovascular Disease | DX: R00.1 Bradycardia, unspecified (principal); I35.8 Other nonrheumatic aortic valve disorders; I44.39 Other atrioventricular block; E78.2 Mixed hyperlipidemia; I95.9 Hypotension, unspecified; E11.22 Type 2 diabetes mellitus with diabetic chronic kidney disease; I12.9 Hypertensive chronic kidney disease with stage 1 through stage 4 chronic kidney disease, or unspecified chronic kidney disease; E11.65 Type 2 diabetes mellitus with hyperglycemia; N18.31 Chronic kidney disease, stage 3a; I48.19 Other persistent atrial fibrillation; Z79.4 Long term (current) use of insulin | CPT/HCPCS: 99215 ==

== ENCOUNTER → 2023-01-01 11:16 | Outpatient (BNVA) | payer MEDICARE, MEDICAID, SELFPAY | PROVIDERS: PCP Family Medicine; Visit Provider Podiatrist Foot & Ankle Surgery | DX: E11.42 Type 2 diabetes mellitus with diabetic polyneuropathy (principal); M76.822 Posterior tibial tendinitis, left leg; M20.41 Other hammer toe(s) (acquired), right foot; M20.42 Other hammer toe(s) (acquired), left foot; Z91.81 History of falling; M21.372 Foot drop, left foot; M25.372 Other instability, left ankle; Z79.4 Long term (current) use of insulin | CPT/HCPCS: 99214 ==

== ENCOUNTER 2023-02-16 11:19 | Observation (INO) | payer MEDICARE, MEDICAID, SELFPAY ==
[2023-02-16] VITALS (15 sets, daily range): BP systolic 123–175; BP diastolic 52–85; PULSE 65–96; RESP 12–21; TEMP 36.4–36.9; O2SAT 94–98; BMI 35.9
[2023-02-16 07:58] LABS: Basophils # 0.1 10^3/uL (0.0-0.1); Basophils % 0.6 %; Eosinophils # 0.1 10^3/uL (0.0-0.8); Eosinophils % 1.2 %; Hematocrit 39.8 % (37.0-47.0); Hemoglobin 12.9 g/dL (11.5-15.3); Lymphocytes # 2.3 10^3/uL (0.8-4.8); Lymphocytes % 25.7 %; Mean Corpuscular HGB Conc 32.4 g/dL (30.0-36.0); Mean Corpuscular Hemoglobin 29.1 pg (28.0-34.0); Mean Corpuscular Volume 89.6 fl (81-99); Mean Platelet Volume 11.7 fL (7.4-10.4); Monocytes # 0.5 10^3/uL (0.2-0.9); Neutrophils # 5.97 10^3/uL (1.8-7.7); Neutrophils % 66.2 %; Nucleated Red Blood Cells % 0 %; Platelet Count 184 10^3/cmm (130-400); Red Blood Count 4.44 10^6/uL (4.1-5.3); Red Cell Distribution Width 12.3 % (12.1-15.1)
--- NOTE | 2023-02-16 08:09 | ECG_ITS ---
[facility] Test Date: 2023-02-16 Pat Name: Merly Guillen Department: Room: Gender: Female Vocational Services Specialist: : 1950 Requested By: Sánchez Gaxiola Order Number: [id number] Theodore MD: Halley Calderon M.D. Measurements Intervals [place] Rate: 78 P: 48 MO: 324 QRS: 37 QRSD: 85 T: 69 QT: 372 QTc: 426 Interpretive Statements SINUS RHYTHM WITH FIRST DEGREE AV BLOCK Compared to ECG 12/02/2022 14:46:35 First degree AV block now present AV dissociation no longer present Junctional rhythm no longer present ST (T wave) deviation no longer present Electronically Signed On 02-16-2023 17:59:11 CDT by Halley Calderon M.D. [email or web address]
[2023-02-16 08:16] LABS: Glucose Point of Care 267 mg/dL (70-110)
--- NOTE | 2023-02-16 08:25 | P.HPUD_ITS ---
Surgery/Procedure H&P Update DATE OF PROCEDURE: February 16, 2023 DATE H&P PERFORMED: 02/16/23 H&P UPDATE INFORMATION: I have reviewed H&P completed within last 30 days, I have examined patient prior to procedure and No changes to prior documentation PREOP DIAGNOSIS: sympomatic bradycardia PRIMARY INDICATION FOR PROCEDURE: symptomatic first and second degree AV block/ bradycardia PLANNED PROCEDURE: Operation Date: 02/16/23 08:30 Proposed Procedures p System PPM dual 29391,R00.1,,I49.9(Not Applicable) - Sánchez Gaxiola MD PATIENT REASSESSED PRIOR TO SEDATION, WITH NO CHANGE NOTED: Yes PHYSICAL EXAM: alert, oriented x 3, clear to auscultation bilaterally and regular rate & rhythm AIRWAY EVAL/ANESTHESIA PLAN: normal airway, see other exam findings, ASA III, Monitored Anesthesia, Local Anesthesia, Risks, benefits & alternatives of se dation and/or procedure discussed and Patient agrees to continue as planned
--- NOTE | 2023-02-16 08:36 | P.HP_ITS ---
Providers/Chief Complaint Admitting Physician: KIESHA Gaxiola Primary Care Provider: Carlo Jason MD Chief Complaint: I49.9 History of Present Illness Merly Guillen is a 72 year old female with a history of intermittent atrial flutter, chronic kidney disease, type 2 diabetes was found to have episodes of second-degree and third-degree AV block. She had several episodes of dizzi ness/weakness/near syncope. For further management of her condition, permanent pacemaker evaluation was recommended. Patient has a history of easy bruising and easy bleeding. She is not on any antiplatelet or oral anticoagulant. Her LV ejection fraction was found to be within normal limits by echocardiogram. She has a history of varicose veins and had venous ablation. She had a Myocardial perfusion imaging 2020 which revealed areas of fixed defects with a very small areas of reversible defect. It was decided to treat her medically at that point. She had a cardiac catheterization. Review of Systems Narrative: CONSTITUTIONAL: No fever or chills. EYES: No blurring of vision or other visual disturbances lately. ENT: No hoarseness of voice, auditory disturbances or sore throat. CARDIOVASCULAR: As mentioned above. RESPIRATORY: No significant cough. GASTROINTESTINAL: No hematemesis or melena. GENITOURINARY: No dysuria or hematuria. INTEGUMENTARY: No skin rashes or history of skin cancer. NEURO: No transient ischemic attacks or amaurosis. PSYCHIATRIC: No history of psychosis or major depression. HEMATOLOGIC: No bleeding disorders or significant anemia. ENDOCRINE: No history of polyuria or polydipsia. MUSCULOSKELETAL: No recent joint pain or swelling. ALLERGY/IMMUNOLOGY: As mentioned above. Medications/Allergies Home Medications Medication Instructions Recorded Confirmed Last Taken Type multivitamin 1 tab PO DAILY 11/07/19 02/13/23 02/15/23 06:00 History simvastatin 40 mg tablet 40 mg PO DAILY 11/07/19 02/13/23 02/15/23 19:00 History Articulating AFO ankle brace #1 ea 11/08/19 01/09/23 Unknown Rx Diabetic shoes with inserts #1 ea 11/08/19 01/09/23 Unknown Rx omega-3 fatty acids 1,000 mg 1,000 mg PO DAILY 05/28/20 02/13/23 02/15/23 06:00 History capsule (Fish Oil Concentrate) cholecalciferol (vitamin D3) 50 50 mcg PO DAILY 07/31/20 02/13/23 02/15/23 06:00 History mcg (2,000 unit) capsule insulin syringe-needle U-100 1 mL #300 ea 01/02/22 01/09/23 Unknown Rx 31 gauge x 5/16 pen needle, diabetic 32 gauge x #300 ea 01/02/22 01/09/23 Unknown Rx 5/32 (Comfort EZ Pen Ovid) insulin lispro 100 unit/mL See Rx Instructions SUBCUT TID #45 01/10/22 02/13/23 02/15/23 Rx subcutaneous pen (Humalog KwikPen mL (U-100) Insulin) Manley Balance Brace to the Left #1 ea 01/29/22 01/09/23 Unknown Rx nitroglycerin 0.4 mg sublingual See Rx Instructions .Route 05/13/22 02/13/23 Unknown Rx tablet .COMPLEX #100 tabs isosorbide mononitrate 60 mg 60 mg PO DAILY #90 tabs 09/04/22 02/13/23 02/16/23 06:30 Rx tablet,extended release 24 hr flash glucose scanning reader #1 ea 11/21/22 01/09/23 Unknown Rx (FreeStyle River 2 David) amlodipine 5 mg tablet See Rx Instructions .Route 12/01/22 02/13/23 02/16/23 06:30 Rx .COMPLEX #90 tabs insulin glargine 100 unit/mL 55 unit SUBCUT DAILY 12/02/22 02/16/23 02/15/23 History subcutaneous solution (Lantus U-100 Insulin) lisinopril 40 mg tablet 20 mg PO QAM 12/02/22 02/13/23 02/16/23 06:30 History torsemide 20 mg tablet 10 mg PO DAILY 12/02/22 02/13/23 02/15/23 06:00 History Accomdated custom diabetic shoe #1 ea 12/15/22 01/09/23 Unknown Rx with custom insoles flash glucose sensor (FreeStyle #6 ea 02/02/23 Unknown Rx River 2 Sensor kit) potassium chloride 10 mEq 10 meq PO DAILY leg swelling #90 02/11/23 02/13/23 02/15/23 06:00 Rx capsule,extended release caps Allergies Allergy/AdvReac Type Severity Reaction Status Date / Time adhesive tape Allergy Unknown unknown Verified 02/16/23 07:55 morphine Allergy Unknown unknown Verified 02/16/23 07:55 Penicillins Allergy Unknown ADR-Diarrhe Verified 02/16/23 07:55 a pregabalin [From Lyrica] Allergy Unknown unknown Verified 02/16/23 07:55 sitagliptin [From Januvia] Allergy Unknown unknown Verified 02/16/23 07:55 celecoxib [From Celebrex] Allergy stomach Verified 02/16/23 07:55 bleed latex Allergy ADR-Itching Verified 02/16/23 07:55 metformin Allergy ADR-Diarrhe Verified 02/16/23 07:55 a milk Allergy Unknown Verified 02/16/23 07:55 aspirin AdvReac eye bleeds Verified 02/16/23 07:55 furosemide AdvReac N/V, Verified 02/16/23 07:55 Diarrhea, LAWSON PFSH Acute PFSH: Medical History Abnormal cardiovascular stress test Arthritis Atrial fibrillation An EKG was done in the office today since the patient was found to have an irregularly irregular heartbeat. The EKG showed atrial fibrillation with a ventricular response rate of 93 bpm. Frequent PVCs also were noted. Some nonspecific T wave changes. Patient is high risk for bleeding. She was taken off the aspirin also because of the bleeding. Atypical chest pain Depression Diabetes Hx of needle biopsy Hypertension Irregular heart beat Neuropathy Nonrheumatic aortic valve sclerosis Swelling of lower leg Varicose vein of leg Ventricular arrhythmia Surgical History H/O: hysterectomy History of appendectomy Hx of breast biopsy Hx of cholecystectomy Status post endovenous radiofrequency ablation (RFA) of saphenous vein Family History Father CAD (coronary artery disease) Grandmother Cancer Diabetes Mother Dementia Brother Diabetes Lung disease Family/Other Lung disease Other Hyperlipidemia Hypertension Denies family history of Clotting disorder Chronic kidney disease (CKD) Suicide Anesthesia complication Bleeding disorder Stroke Social History Smoking and tobacco status: never smoked Alcohol intake: never Substance/Drug Use: never Vitals/I&O/Wt Last Vital Signs Temp 98.5 F 02/16/23 08:21 Pulse 86 02/16/23 08:21 Resp 16 02/16/23 08:21 BP 129/65 02/16/23 08:21 Pulse Ox 94 02/16/23 08:21 O2 Del Method Room Air 02/16/23 08:21 Weight last 48 hrs Weight 243 lb Physical Exam Narrative: GENERAL: The patient is alert and oriented times three. Not in any acute distress. HEENT: No significant pallor, icterus or lymphadenopathy.Oral cavity: There are no mucous membrane lesions. NECK: Trachea appears to be central. No masses noted. No JVD or thyromegaly appreciated. RESPIRATORY: Chest is symmetrical. No intercostals muscle retraction or any a ccessory muscle activation. There is no chest wall tenderness. Breath sounds are heard bilaterally. No rales or rhonchi heard. No evidence of any consolidation. BREASTS: Deferred. HEART: The heart sounds are normal. No S3 or S4. No significant murmurs. No pericardial rub ABDOMEN: No vessel pulsations or distention. No tenderness. No organomegaly appreciated. Bowel sounds are normally heard. : Deferred. RECTAL: Deferred. LYMPHATIC: No lymphadenopathy noted in the neck. EXTREMITIES: No edema or cyanosis. No clubbing. MUSCULOSKELETAL: No acute joint deformities or swelling SKIN: There are no significant rashes or ecchymosis NEUROPSYCHIATRIC: The patient is alert and oriented x3. Appears to be in a good mood. No tremors or rigidity noted. Data 02/16/23 07:33 02/16/23 07:00 Other Labs: Laboratory Last Values WBC 9.0 10^3/uL (4.0-10.0) 02/16/23 07:33 RBC 4.44 10^6/uL (4.1-5.3) 02/16/23 07:33 Hgb 12.9 g/dL (11.5-15.3) 02/16/23 07:33 Hct 39.8 % (37.0-47.0) 02/16/23 07:33 MCV 89.6 fl (81-99) 02/16/23 07:33 MCH 29.1 pg (28.0-34.0) 02/16/23 07:33 MCHC 32.4 g/dL (30.0-36.0) 02/16/23 07:33 RDW 12.3 % (12.1-15.1) 02/16/23 07:33 Plt Count 184 10^3/cmm (130-400) 02/16/23 07:33 MPV 11.7 fL (7.4-10.4) H 02/16/23 07:33 Neut % (Auto) 66.2 % 02/16/23 07:33 Lymph % (Auto) 25.7 % 02/16/23 07:33 [place] % (Auto) 6.0 % 02/16/23 07:33 Eos % (Auto) 1.2 % 02/16/23 07:33 Baso % (Auto) 0.6 % 02/16/23 07:33 Neut # (Auto) 5.97 10^3/uL (1.8-7.7) 02/16/23 07:33 Lymph # (Auto) 2.3 10^3/uL (0.8-4.8) 02/16/23 07:33 [place] # (Auto) 0.5 10^3/uL (0.2-0.9) 02/16/23 07:33 Eos # (Auto) 0.1 10^3/uL (0.0-0.8) 02/16/23 07:33 Baso # (Auto) 0.1 10^3/uL (0.0-0.1) 02/16/23 07:33 Nucleated RBC % (auto) 0 % 02/16/23 07:33 Nucleated RBCs # 0.0 /100WBC 02/16/23 07:33 PT 15.40 SECONDS (12.1-14.9) H 02/16/23 07:00 INR 1.18 (0.8-1.2) 02/16/23 07:00 Sodium Cancelled 02/16/23 07:33 Potassium Cancelled 02/16/23 07:33 Chloride Cancelled 02/16/23 07:33 Carbon Dioxide Cancelled 02/16/23 07:33 Anion Gap Cancelled 02/16/23 07:33 BUN Cancelled 02/16/23 07:33 Creatinine Cancelled 02/16/23 07:33 GFR Calculation Cancelled 02/16/23 07:33 Glucose Cancelled 02/16/23 07:33 POC Glucose 267 mg/dL (70-110) H 02/16/23 08:05 Calculated Osmolality Cancelled 02/16/23 07:33 Calcium Cancelled 02/16/23 07:33 A&P Assessment and plan (1) Symptomatic bradycardia: (2) Hyperlipemia, mixed: (3) CKD (chronic kidney disease) stage 3, GFR 30-59 ml/min: Qualifiers: Chronic kidney disease stage 3 subtype: stage 3a (GFR 45-59) Qualified Code(s): N18.31 - Chronic kidney disease, stage 3a (4) Atrial flutter: Qualifiers: Atrial flutter type: unspecified Qualified Code(s): I48.92 - Unspecified atrial flutter (5) High degree atrioventricular block: (6) Diabetes: Plan In view of the patient's history of intermittent high degree AV block, symptomatic bradycardia, intermittent atrial flutter, for further management of her condition, a permanent pacemaker implantation was recommended. The risk of bleeding, hematoma, vascular injury, myocardial perforation, pericardial tamponade pneumothorax, infection, renal failure and other concomitant complications were explained in detail. The patient understood this well and consented to proceed. She carries a high risk of kidney injury because of the underlying chronic kidney disease Attestations 2 Medical Necessity Statement*: Patient requires of 1 midnight stay following the pacemaker for IV antibiotics Coding Level of Care Code 74489 Diagnoses Symptomatic bradycardia R00.1 Hyperlipemia, mixed E78.2 CKD (chronic kidney disease) stage 3, GFR 30-59 ml/min N18.31 Chronic kidney disease stage 3 subtype: stage 3a (GFR 45-59) Atrial flutter I48.92 Atrial flutter type: unspecified High degree atrioventricular block I44.39 Diabetes E11.9
[2023-02-16 08:39] LABS: INR 1.18 (0.8-1.2)
[2023-02-16 08:49] LABS: Anion Gap 13.6 (5-19); Blood Urea Nitrogen 29 mg/dL (8-23); Carbon Dioxide 26 mmol/L (22-29); Chloride 105 mmol/L (98-107); Glomerular Filtration Rate 40.5 mL/min (90-130); Glucose 240 mg/dL (65-115); Osmolality Calculated 304 mOsm/kg (285-295); Potassium 4.6 mmol/L (3.5-5.1); Sodium 140 mmol/L (136-145)
--- NOTE | 2023-02-16 10:20 | SUR.EXTENDED ---
Received the patient back from the laboratory equipment cleaner s/p dual chamber PPM insertion via bed. Patient A & O x3. Drowsy, but awake. Bulky pressure dressing D/I to the left upper chest. Arm/Shoulder immobilizer in place. No other assessment changes noted form pre cath assessment. Friends at bedside. Will transfer to [facility] after recovery.
--- NOTE | 2023-02-16 10:48 | SUR.EXTENDED ---
Patient transferred to room 256-2 via bed. Report was called to Nikita by Denver Chand RN.
[2023-02-16 11:59] LABS: Glucose Point of Care 248 mg/dL (70-110)
[2023-02-16] MEDS: isosorbide mononitrate ER 60 mg Tablet PO (13:01)
[2023-02-16] MEDS: potassium chloride ER 10 mEq Tablet PO (13:01)
[2023-02-16] MEDS: cholecalciferol (vitamin D3) 1,000 unit Tablet 2000 UNIT PO (13:01)
[2023-02-16] MEDS: omega-3 fatty acids 1,000 mg Capsule 1000 MG PO (13:01)
[2023-02-16] MEDS: multivitamin therapeutic Tablet 1 TAB PO (13:02)
[2023-02-16] MEDS: atorvastatin 40 mg Tablet 20 MG PO (13:03)
[2023-02-16] MEDS: TORSEmide 20 mg Tablet 10 MG PO (13:03)
--- NOTE | 2023-02-16 13:40 | PM.OP ---
Operative Report Date of procedure: February 16, 2023 Pre-op diagnosis: Preop Diagnosis sympomatic bradycardia Procedure: LOCATION: Cardiac catheterization lab PREOPERATIVE DIAGNOSES: Symptomatic bradycardia/intermittent high degree AV block/intermittent atrial flutter. POSTOPERATIVE DIAGNOSES: Same. COMPLICATIONS: None. ESTIMATED BLOOD LOSS: None BRIEF HISTORY: Mrs. Guillen is a 72-year-old white female with a history of hypertension, type 2 diabetes, dyslipidemia presents with complaints of dizziness/weakness near syncopal episodes. She had an event monitor which revealed the patient rhythm to be normal sinus with a first-degree AV block with intermittent second-degree and third-degree AV block. She was having episodes of weakness/dizziness/near syncopal episodes. For further management of her condition, a permanent dual-chamber pacemaker implantation was recommended. A dual chamber permanent pacemaker implantation was recommended for AV synchrony and symptom relief The procedure was explained to the patient in detail with the risks and benefits. The risks of bleeding, hematoma, vascular injury, infection, pneumothorax, myocardial perforation and other concomitant complications were explained in detail, which the patient understood well and consented to proceed. PROCEDURE DESCRIPTION: The patient was brought to the Cardiac Catheterization Lab. The left and the right side of the neck and the subclavian area were cleaned and draped in a sterile fashion. 1% Xylocaine was used as the local anesthetic agent. Left subclavian venogram was performed by injecting 20 milliliters of Omnipaque through the left antecubital vein. A left subclavian venous access was obtained using a micropuncture needle system, under venographic guidance. . A two-inch long incision was made 2.0 centimeters below the midclavicular region. By sharp and blunt dissection, a pacemaker pocket was made. A second venous access was obtained using another micropuncture needle system. Over the first guidewire, a 7-Tamazight venous sheath with dilator was advanced. The venous dilator and the guidewire were taken out. A screw-in ventricular lead was advanced through the venous sheath and was positioned towards the right ventricle. Under fluoroscopic guidance, the ventricular lead was positioned toward the right ventricular apex. Good pacing and sensing thresholds were obtained. The lead was secured to the endocardium by advancing the helix. The stability of the lead was tested by gentle twisting movements and also by asking the patient to take some deep breaths and cough. The venous sheath was peeled off, at this time. The lead was secured to the pectoralis fascia, by suturing with 1-0 Surgilon. Over the second guidewire, another 7-Tamazight venous sheath with dilator was advanced. The dilator and the guidewire were taken out. Under fluoroscopic guidance, an atrial lead (Medtronic), was advanced and positioned toward the right atrium. The lead was positioned in the right atrial appendage. Good pacing and sensing thresholds were obtained. The lead was secured to the endocardium by advancing the helix. Stability of the lead was tested by gentle twisting movements and also by asking the patient to take some deep breaths and cough. The venous sheath was peeled off, at this time. The lead was secured to the pectoralis fascia by suturing with 0-Surgilon. The pacemaker pocket was copiously irrigated with vancomycin solution. Complete hemostasis was achieved. Sponge counts were confirmed. The leads were attached to a Medtronic generator. The leads were positioned behind the generator and the generator was attached to the pectoralis fascia by suturing with 0-Surgilon. The pocket was closed in layers. Skin was approximated using 4-0 Vicryl. IMPLANTED DEVICES: ATRIAL LEAD: Model number: 5076/52 Serial number: [id number] Make: Medtronic VENTRICULAR LEAD: Model number: 5076/58 Serial number: [id number] Make: Medtronic GENERATOR Brand: [place] XT DR [facility] Model number: W1 DR 01 Serial number: [id number] Make: Medtronic IMPLANTATION DATA: With the pacing system analyzer, the R wave sensing was 7.5 millivolts with a lead impedance of 856 and a pacing threshold was 0.4 volts at 0.4 milliseconds. In the atrium, the sensing was 1.8 millivolts with a lead impedance of 437 ohms and a pacing threshold was not obtained since the patient was in flutter/fibrillation Through the device, the R-wave sensing was 7.3 millivolts with a lead impedance of 817 and a pacing threshold was 0.5 volts at 0.4 milliseconds. The atrial sensing was 3.0 millivolts with a lead impedance of 456 ohms and a pacing threshold was not obtained because of the atrial arrhythmia The pacemaker was set for DDDR mode with upper rate of 130 and a lower rate of 60. A pressure dressing was applied over the pacemaker site. The patient was transferred to the Medical Floor in stable condition. A chest x-ray was ordered to confirm the lead position and also to rule out any pneumothorax.
[2023-02-16] MEDS: insulin glargine 100 units/1 mL 55 UNIT SUBCUT (14:29)
[2023-02-16] MEDS: acetaminophen 325 mg Tablet 650 MG PO ×2 (14:38→20:36)
[2023-02-16 17:50] LABS: Glucose Point of Care 259 mg/dL (70-110)
[2023-02-16] MEDS: insulin lispro 100 unit/1 mL SUBCUT ×2 (18:35→22:47)
[2023-02-16] MEDS: vancomycin 1,000 MG in sodium chloride 0.9% 250 ML 250 MG IV (20:23)
[2023-02-16] MEDS: sodium chloride 0.9% 1,000 ML 75 ML IV (22:18)
[2023-02-16 23:07] LABS: Glucose Point of Care 152 mg/dL (70-110)
[2023-02-17 01:40] VITALS: BP 155/47; PULSE 74; RESP 18; TEMP 36.6; O2SAT 97
[2023-02-17 04:38] VITALS: BP 161/66; PULSE 69; RESP 16; TEMP 36.6; O2SAT 95
[2023-02-17 06:00] VITALS: PULSE 69
--- NOTE | 2023-02-17 06:00 | XRR_ITS ---
PROCEDURE INFORMATION: Exam: XR Chest Exam date and time: 02/17/2023 5:55 AM Age: 72 years old Clinical indication: Device placement; Other: Post permanent pacemaker placement; Visualize lead tip TECHNIQUE: Imaging protocol: Radiologic exam of the chest. Views: 1 view. COMPARISON: CR XR chest 1V portable [id number] 05/25/2022 10:41 AM FINDINGS: Tubes, catheters and devices: There is left-sided pacemaker with intact leads overlying the right atrium and right ventricle. Lungs: Unremarkable. No consolidation. Pleural spaces: Unremarkable. No pleural effusion. No pneumothorax. Heart/Mediastinum: There is mild cardiomegaly. Bones/joints: Unremarkable. XR/XR chest 1V [id number] IMPRESSION: 1. No acute disease. 2. Mild cardiomegaly.
--- NOTE | 2023-02-17 06:00 | ECG_ITS ---
[facility] Test Date: 2023-02-17 Pat Name: Merly Gulilen Department: Room: 256 Gender: Female Line Manager: : 1950 Requested By: Sánchez Gaxiola Order Number: [id number] Theodore MD: Halley Calderon M.D. Measurements Intervals [place] Rate: 73 P: 155 [place]: 192 QRS: 252 QRSD: 185 T: 75 QT: 460 QTc: 509 Interpretive Statements ELECTRONIC VENTRICULAR PACEMAKER ABNORMAL RHYTHM ECG Compared to ECG 02/16/2023 08:21:36 Sinus rhythm no longer present First degree AV block no longer present Electronically Signed On 02-17-2023 6:48:39 CDT by Halley Calderon M.D. [id number]
[2023-02-17 07:04] LABS: Glucose Point of Care 91 mg/dL (70-110)
--- NOTE | 2023-02-17 08:25 | PC.PHAR ---
pt states she takes care of her own medications-pt states she takes lisinopril 40mg qam rx written 12/02/22 [facility] 20mg daily-pt states her metoprolol er 25mg daily was dced ext shows last filled 12/18/22 90d/s-pt states she takes torsemide 20mg qam ext shows last filled 08/03/22 90d/s pt states she had a build up from when she was taking 10mg daily written from [facility] 12/02/22 10mg daily-notes are made in the pharmacy comments
[2023-02-17] MEDS: cholecalciferol (vitamin D3) 1,000 unit Tablet 2000 UNIT PO (08:54)
[2023-02-17] MEDS: multivitamin therapeutic Tablet 1 TAB PO (08:55)
[2023-02-17] MEDS: acetaminophen 325 mg Tablet 650 MG PO (08:55)
[2023-02-17] MEDS: omega-3 fatty acids 1,000 mg Capsule 1000 MG PO (08:55)
[2023-02-17] MEDS: potassium chloride ER 10 mEq Tablet PO (08:55)
[2023-02-17] MEDS: TORSEmide 20 mg Tablet 10 MG PO (08:55)
[2023-02-17] MEDS: isosorbide mononitrate ER 60 mg Tablet PO (08:55)
[2023-02-17] MEDS: amlodipine 5 mg Tablet PO (08:55)
[2023-02-17] MEDS: atorvastatin 40 mg Tablet 20 MG PO (08:55)
[2023-02-17] MEDS: lisinopril 20 mg Tablet PO (08:55)
[2023-02-17] MEDS: vancomycin 1,000 MG in sodium chloride 0.9% 250 ML 250 MG IV (08:56)
[2023-02-17] MEDS: insulin glargine 100 units/1 mL 55 UNIT SUBCUT (08:56)
--- NOTE | 2023-02-17 09:57 | PC.CHAP ---
Pastoral Care Encounter/Spiritual Assessment Type of Contact [] Declined on site wastewater systems technician visit [] Patient/Family/Request visit [] Outpatient visit [] Follow-up visit [] Physician referral [] Code/Alert [] Routine visit [] Staff referral [] Actively dying [] Patient sleeping [] Family support [] [] Out of room [] Palliative care [] [] Receiving care in room [] Pre-surgical visit [] Trauma [] Long length of stay [] ICU visit [x] Other: Declined visit. Jehova's Witness Relational/Emotional Strength [] Patient feels connected with others/family/visitors/staff [] Distress [] Loneliness/isolation [] Abandonment Spirituality of Patient [] Person of [place] [] Attends [employer] of their [place] [] Believes in Prayer [] Reads Bible or Worship materials [] There are Spiritual issues to be addressed Drilling Assistant Interventions [] Prayer [] Active listening [] Non-anxious presence [] Spiritual/emotional support [] Crisis/trauma care [] Spiritual counseling [] Bereavement support [] Provided bereavement packet [] Provided Bible/devotional materials [] Provided toy/stuffed animal, coloring book to patient or family member [] Provided Communion [] Anointing/[place] [] Salvation [] Completed spiritual assessment [] Other: Impact on Illness or Injury [] Angry [] Fearful [] Anxious [] Often cries [] Exhaustion [] Unable to work [] Unable to attend anglican [] Unable to walk/stand [] Unable to read [] Unable to drive [] Unable to eat/drink [] Unable to sleep [] Unable to be with family [] Patient intubated [] Other: Summary Time spent with patient
--- NOTE | 2023-02-17 10:10 | P.PN_ITS ---
Subjective Subjective: This patient was admitted to hospital following the permanent pacer implantation for IV antibiotics and close monitoring. She received the antibiotic doses as prescribed. Has no complications. No hematoma bleeding at the pacemaker site. Medications: Medication Review Details: Current Medications Acetaminophen (Acetaminophen 325 Mg Tablet) 650 mg PO Q6H PRN PRN Reason: MILD PAIN Last Admin: 02/17/23 08:55 Dose: 650 mg Al Hydrox/Mg Hydrox/Simethicone (Iknb-Hfp-Rrnubncep-Rojas 30 Ml Udc) 30 ml PO Q15M PRN PRN Reason: INDIGESTION Al Hydrox/Mg Hydrox/Simethicone (Gsii-Qrs-Xkrlltthd-Rojas 30 Ml Udc) 30 ml PO Q15M PRN PRN Reason: INDIGESTION Amlodipine Besylate (Amlodipine 5 Mg Tablet) 5 mg PO DAILY PADMINI Last Admin: 02/17/23 08:55 Dose: 5 mg Atorvastatin Calcium (Atorvastatin 40 Mg Tablet) 20 mg PO DAILY PADMIIN Last Admin: 02/17/23 08:55 Dose: 20 mg Atropine Sulfate (Atropine 1 Mg/Ml Sdv 1 Ml) 0.5 mg IVP PRN PRN PRN Reason: Symptomatic bradycardia Dextrose (Dextrose 50% Syringe 50 Ml) 25 ml IVP ONCE PRN; Protocol PRN Reason: hypoglycemia protocol Dextrose (Dextrose 50% Syringe 50 Ml) 50 ml IVP PRN PRN; Protocol PRN Reason: hypoglycemia protocol Glucagon (Glucagon 1 Mg/Ml Inj 1 Ml) 1 mg IM ONCE PRN; Protocol PRN Reason: Adult Acute Hypoglycemia Prot. Sodium Chloride (Sodium Chloride 0.9%) 1,000 mls @ 75 mls/hr IV .[id number] PADMINI Last Admin: 02/16/23 22:18 Dose: 75 mls/hr Vancomycin HCl 1,000 mg/ (Sodium Chloride) 250 mls @ 250 mls/hr IV Q12H PADMINI; Protocol Last Infusion: 02/17/23 10:07 Dose: Infused Dextrose (D5w) 500 mls @ 100 mls/hr IV ONCE PRN; Protocol PRN Reason: Adult Acute Hypoglycemia Prot Insulin Glargine (Insulin Glargine 100 Units/1 Ml) 55 unit SUBCUT DAILY [facility] Last Admin: 02/17/23 08:56 Dose: 55 unit Insulin Human Lispro (Insulin Lispro 100 Unit/1 Ml) 0 unit SUBCUT WM&BEDTIME [facility]; Protocol Last Admin: 02/17/23 08:18 Dose: Not Given Isosorbide Mononitrate (Isosorbide Mononitrate Er 60 Mg Tablet) 60 mg PO DAILY [facility] Last Admin: 02/17/23 08:55 Dose: 60 mg Lisinopril (Lisinopril 20 Mg Tablet) 20 mg PO DAILY [facility] Last Admin: 02/17/23 08:55 Dose: 20 mg Magnesium Hydroxide (Magnesium Hydroxide 30 Ml Udc) 30 ml PO DAILY PRN PRN Reason: CONSTIPATION Magnesium Hydroxide (Magnesium Hydroxide 30 Ml Udc) 30 ml PO DAILY PRN PRN Reason: CONSTIPATION Multivitamins Therapeutic (Multivitamin Therapeutic Tablet) 1 tab PO DAILY [facility] Last Admin: 02/17/23 08:55 Dose: 1 tab Nitroglycerin (Nitroglycerin 0.4 Mg Sublingual Tablet) 0.4 mg SUBLINGUAL Q5M PRN PRN Reason: CHEST PAIN [id number] Ethyl Esters ([place]-3 Fatty Acids 1,000 Mg Capsule) 1,000 mg PO DAILY [facility] Last Admin: 02/17/23 08:55 Dose: 1,000 mg Potassium Chloride (Potassium Chloride Er 10 Meq Tablet) 10 meq PO DAILY [facility] Last Admin: 02/17/23 08:55 Dose: 10 meq Torsemide (Torsemide 20 Mg Tablet) 10 mg PO DAILY [facility] Last Admin: 02/17/23 08:55 Dose: 10 mg Vitamin D (Cholecalciferol (Vitamin D3) 1,000 Unit Tablet) 2,000 unit PO DAILY [facility] Last Admin: 02/17/23 08:54 Dose: 2,000 unit Vitals/I&O/Wt Last Vital Signs Temp 97.9 F 02/17/23 04:38 Pulse 69 02/17/23 06:00 Resp 16 02/17/23 04:38 BP 161/66 02/17/23 04:38 Pulse Ox 95 02/17/23 04:38 O2 Del Method Room Air 02/17/23 04:38 02/16/23 02/17/23 02/17/23 22:59 06:59 14:59 Intake Total 250 / 490 250 / 250 Balance 250 / 490 250 / 250 Weight last 48 hrs Weight 243 lb Physical Exam Narrative: GENERAL: The patient is alert and oriented times three. Not in any acute dis tress. HEENT: No significant pallor, icterus or lymphadenopathy.Oral cavity: There are no mucous membrane lesions. NECK: Trachea appears to be central. No masses noted. No JVD or thyromegaly appreciated. RESPIRATORY: Chest is symmetrical. No intercostals muscle retraction or any accessory muscle activation. There is no chest wall tenderness. Breath sounds are heard bilaterally. No rales or rhonchi heard. No evidence of any consolidation. The pacemaker site has no hematoma bleeding. BREASTS: Deferred. HEART: The heart sounds are normal. No S3 or S4. No significant murmurs. No pericardial rub ABDOMEN: No vessel pulsations or distention. No tenderness. No organomegaly appreciated. Bowel sounds are normally heard. : Deferred. RECTAL: Deferred. LYMPHATIC: No lymphadenopathy noted in the neck. EXTREMITIES: No edema or cyanosis. No clubbing. MUSCULOSKELETAL: No acute joint deformities or swelling SKIN: There are no significant rashes or ecchymosis NEUROPSYCHIATRIC: The patient is alert and oriented x3. Appears to be in a good mood. No tremors or rigidity noted. Data 02/16/23 07:33 02/16/23 07:00 Other Labs: Laboratory Last Values WBC 9.0 10^3/uL (4.0-10.0) 02/16/23 07:33 RBC 4.44 10^6/uL (4.1-5.3) 02/16/23 07:33 Hgb 12.9 g/dL (11.5-15.3) 02/16/23 07:33 Hct 39.8 % (37.0-47.0) 02/16/23 07:33 MCV 89.6 fl (81-99) 02/16/23 07:33 MCH 29.1 pg (28.0-34.0) 02/16/23 07:33 MCHC 32.4 g/dL (30.0-36.0) 02/16/23 07:33 RDW 12.3 % (12.1-15.1) 02/16/23 07:33 Plt Count 184 10^3/cmm (130-400) 02/16/23 07:33 MPV 11.7 fL (7.4-10.4) H 02/16/23 07:33 Neut % (Auto) 66.2 % 02/16/23 07:33 Lymph % (Auto) 25.7 % 02/16/23 07:33 Lawrence % (Auto) 6.0 % 02/16/23 07:33 Eos % (Auto) 1.2 % 02/16/23 07:33 Baso % (Auto) 0.6 % 02/16/23 07:33 Neut # (Auto) 5.97 10^3/uL (1.8-7.7) 02/16/23 07:33 Lymph # (Auto) 2.3 10^3/uL (0.8-4.8) 02/16/23 07:33 Lawrence # (Auto) 0.5 10^3/uL (0.2-0.9) 02/16/23 07:33 Eos # (Auto) 0.1 10^3/uL (0.0-0.8) 02/16/23 07:33 Baso # (Auto) 0.1 10^3/uL (0.0-0.1) 02/16/23 07:33 Nucleated RBC % (auto) 0 % 02/16/23 07:33 Nucleated RBCs # 0.0 /100WBC 02/16/23 07:33 PT 15.40 SECONDS (12.1-14.9) H 02/16/23 07:00 INR 1.18 (0.8-1.2) 02/16/23 07:00 Sodium Cancelled 02/16/23 07:33 Potassium Cancelled 02/16/23 07:33 Chloride Cancelled 02/16/23 07:33 Carbon Dioxide Cancelled 02/16/23 07:33 Anion Gap Cancelled 02/16/23 07:33 BUN Cancelled 02/16/23 07:33 Creatinine Cancelled 02/16/23 07:33 GFR Calculation Cancelled 02/16/23 07:33 Glucose Cancelled 02/16/23 07:33 POC Glucose 91 mg/dL (70-110) 02/17/23 06:53 Calculated Osmolality Cancelled 02/16/23 07:33 Calcium Cancelled 02/16/23 07:33 A&P Assessment and plan (1) Pacemaker: X-ray revealed good positioning of the leads. No pneumothorax. (2) Symptomatic bradycardia: Status post permanent pacer implantation. Pacing function appears to be appropriate. (3) Hyperlipemia, mixed: Continue on the current management. Follow-up evaluation as scheduled. (4) CKD (chronic kidney disease) stage 3, GFR 30-59 ml/min: This patient is known to have chronic kidney disease. The kidney function was told to be stable, based on the most recent evaluation. Advised to continue on the current treatment measures. Qualifiers: Chronic kidney disease stage 3 subtype: stage 3a (GFR 45-59) Qualified Code(s): N18.31 - Chronic kidney disease, stage 3a (5) Atrial flutter: Continue on the current management. Qualifiers: Atrial flutter type: unspecified Qualified Code(s): I48.92 - Unspecified atrial flutter (6) Diabetes: We will continue on the current management. Plan Patient is currently remaining stable. The pacemaker was interrogated this morning Good pacing and sensing functions. Patient is being discharged home today. Advised to continue on the above medications. Patient will be coming back to the office next week for a wound check and pacemaker interrogation. In the event of the patient developing any unusual pain, swelling or bleeding at the pacemaker site, is instructed to call us or come back to the hospital. Patient will be taking the antibiotics and the multivitamins as instructed. May continue taking the other medications as below. Attestations Medical Necessity Statement*: Discharge home today Coding Level of Care Code 52316 Diagnoses Pacemaker Z95.0 Symptomatic bradycardia R00.1 Hyperlipemia, mixed E78.2 CKD (chronic kidney disease) stage 3, GFR 30-59 ml/min N18.31 Chronic kidney disease stage 3 subtype: stage 3a (GFR 45-59) Atrial flutter I48.92 Atrial flutter type: unspecified Diabetes E11.9
[2023-02-17 11:19] LABS: Glucose Point of Care 202 mg/dL (70-110)
[2023-02-17] MEDS: insulin lispro 100 unit/1 mL SUBCUT (12:27)
--- NOTE | 2023-02-17 12:49 | PC.NURSE ---
Discharge pending transportation
== END 2023-02-17 13:31 | disposition home or self-care (01) ==
LOC: MEDSURG 11:19
PROVIDERS: Admitting Provider Internal Medicine Cardiovascular Disease; PCP Family Medicine; Visit Provider Internal Medicine Cardiovascular Disease
DX: R00.1 Bradycardia, unspecified (principal); I48.92 Unspecified atrial flutter; E78.2 Mixed hyperlipidemia; E11.22 Type 2 diabetes mellitus with diabetic chronic kidney disease; N18.31 Chronic kidney disease, stage 3a; Z79.4 Long term (current) use of insulin; I44.2 Atrioventricular block, complete
CPT/HCPCS: 33208; 36415; 36416; 71045; 80048; 82962; 85025; 85610; 93005; 96361; 96365; 96367; 96372; 97165; 99152; 99153; A4216; C1769; C1779; C1786; C1894; C1898; G0378; J1815; J2250; J3010; J3370; J7030; J7050; Q9967

== ENCOUNTER → 2023-02-23 09:44 | Outpatient (BNVA) | payer MEDICARE, MEDICAID, SELFPAY | PROVIDERS: PCP Family Medicine; Visit Provider Nurse Practitioner Family | DX: Z95.0 Presence of cardiac pacemaker (principal) | CPT/HCPCS: 99213 ==

== ENCOUNTER 2023-02-24 14:38 | Outpatient (CLI) | payer MEDICARE, MEDICAID, SELFPAY ==
[2023-01-08 08:49] LABS: Basophils % 0.4 %; Eosinophils # 0.1 10^3/uL (0.0-0.8); Eosinophils % 1.2 %; Hematocrit 37.3 % (37.0-47.0); Lymphocytes # 2.3 10^3/uL (0.8-4.8); Lymphocytes % 23.8 %; Mean Corpuscular HGB Conc 32.2 g/dL (30.0-36.0); Mean Corpuscular Hemoglobin 29.1 pg (28.0-34.0); Mean Corpuscular Volume 90.3 fl (81-99); Mean Platelet Volume 10.5 fL (7.4-10.4); Monocytes # 0.6 10^3/uL (0.2-0.9); Neutrophils # 6.64 10^3/uL (1.8-7.7); Neutrophils % 68.3 %; Nucleated Red Blood Cells % 0 %; Platelet Count 232 10^3/cmm (130-400); Red Blood Count 4.13 10^6/uL (4.1-5.3); Red Cell Distribution Width 12.4 % (12.1-15.1); White Blood Count 9.7 10^3/uL (4.0-10.0)
[2023-01-08 09:04] LABS: INR 1.23 (0.83-1.21); Prothrombin Time (Patient) 15.9 Seconds (12.0-15.1)
[2023-01-08 09:09] LABS: Anion Gap 14.3 (5-19); Blood Urea Nitrogen 25 mg/dL (8-23); Calcium 10.2 mg/dL (8.5-10.5); Carbon Dioxide 25 mmol/L (22-29); Chloride 105 mmol/L (98-107); Glomerular Filtration Rate 44.4 mL/min (90-130); Glucose 180 mg/dL (65-115); Osmolality Calculated 299 mOsm/kg (285-295); Potassium 4.3 mmol/L (3.5-5.1); Sodium 140 mmol/L (136-145)
== END 2023-02-24 14:39 | disposition home or self-care (01) ==
LOC: CCL 14:38
PROVIDERS: PCP Family Medicine; Visit Provider Internal Medicine Cardiovascular Disease
DX: Z01.818 Encounter for other preprocedural examination (principal); R00.1 Bradycardia, unspecified
CPT/HCPCS: 36415; 80048; 85025; 85610

== ENCOUNTER → 2023-03-03 10:38 | Outpatient (BNVA) | payer MEDICARE, MEDICAID, SELFPAY | PROVIDERS: PCP Family Medicine; Visit Provider Podiatrist Foot & Ankle Surgery | DX: E11.65 Type 2 diabetes mellitus with hyperglycemia (principal); E11.22 Type 2 diabetes mellitus with diabetic chronic kidney disease; N18.31 Chronic kidney disease, stage 3a; E78.2 Mixed hyperlipidemia; E04.2 Nontoxic multinodular goiter; E21.3 Hyperparathyroidism, unspecified; E55.9 Vitamin D deficiency, unspecified; Z79.4 Long term (current) use of insulin; E11.42 Type 2 diabetes mellitus with diabetic polyneuropathy; M76.822 Posterior tibial tendinitis, left leg; M20.41 Other hammer toe(s) (acquired), right foot; M20.42 Other hammer toe(s) (acquired), left foot; Z91.81 History of falling; M21.372 Foot drop, left foot; L60.3 Nail dystrophy; L84 Corns and callosities; M25.372 Other instability, left ankle | CPT/HCPCS: 11055; 11721; 99214 ==

== ENCOUNTER → 2023-03-25 14:39 | Outpatient (BNVA) | payer MEDICARE, MEDICAID, SELFPAY | PROVIDERS: PCP Family Medicine; Visit Provider Dermatology | DX: L82.1 Other seborrheic keratosis (principal); D18.01 Hemangioma of skin and subcutaneous tissue; D48.5 Neoplasm of uncertain behavior of skin; L57.0 Actinic keratosis | CPT/HCPCS: 11102; 17000; 99213 ==

== ENCOUNTER 2023-04-22 14:21 | Outpatient (CLI) | payer MEDICARE, MEDICAID, SELFPAY ==
--- NOTE | 2023-04-22 14:26 | XR_ITS ---
WS: [id number] SCREENING DEXA SCAN [employer] CLINICAL INFORMATION: POSTMENOPAUSAL COMPARISON: 2020 FINDINGS: The L1-L4 bone mineral density measures 1.192. This corresponds to a T score score of -0.1 and Z scor e of 0.4. Left femoral neck bone mineral density measures 0.818 g/cm2. This corresponds to a T score of -1.5 an d Z score of -0.8. Right femoral neck bone mineral density measures 0.878 g/cm2. This corresponds to a T score -1.0of an d Z score of -0.4. Mean femoral neck bone mineral density measures 0.848 g/cm2. This corresponds to a T score of -1.3 an d Z score of -0.6. IMPRESSION: Normal bone mineralization lumbar spine. Osteopenia femoral necks. Patient's FRAX calculated 10 year probability for major osteoporotic fracture is 26.9% and osteoporot ic hip fracture is 7.6%.
== END 2023-04-22 14:22 | disposition home or self-care (01) ==
LOC: RAD 14:22
PROVIDERS: PCP Family Medicine; Visit Provider Family Medicine
DX: Z13.820 Encounter for screening for osteoporosis (principal); Z78.0 Asymptomatic menopausal state; M85.852 Other specified disorders of bone density and structure, left thigh; M85.851 Other specified disorders of bone density and structure, right thigh
CPT/HCPCS: 77080

== ENCOUNTER → 2023-05-14 09:30 | Outpatient (BNVA) | payer MEDICARE, MEDICAID, SELFPAY | PROVIDERS: PCP Family Medicine; Visit Provider Internal Medicine Cardiovascular Disease | DX: I48.19 Other persistent atrial fibrillation (principal); Z95.0 Presence of cardiac pacemaker; I10 Essential (primary) hypertension; I49.9 Cardiac arrhythmia, unspecified; E11.9 Type 2 diabetes mellitus without complications; Z79.4 Long term (current) use of insulin; I35.8 Other nonrheumatic aortic valve disorders | CPT/HCPCS: 99214 ==

== ENCOUNTER 2023-05-26 10:45 | Outpatient (CLI) | payer MEDICARE, MEDICAID, SELFPAY ==
[2023-05-26 11:40] LABS: Estmated Average Glucose 192; Hemoglobin A1C 8.3 % (4.0-6.0)
[2023-05-26 11:56] LABS: Calcium 10.4 mg/dL (8.5-10.5); Parathyroid Hormone 81.9 pg/mL (15-65)
[2023-05-26 12:07] LABS: 25 Hydroxy Vitamin D 22 ng/mL (30-100); Alanine Aminotransferase 16 U/L (0-33); Albumin Level 3.9 g/dL (3.5-5.2); Alkaline Phosphatase 72 U/L (35-105); Anion Gap 14.6 (5-19); Aspartate Amino Transferase 17 U/L (0-32); Blood Urea Nitrogen 25 mg/dL (8-23); Calcium 10.4 mg/dL (8.5-10.5); Carbon Dioxide 25 mmol/L (22-29); Chloride 105 mmol/L (98-107); Chol HDL Ratio 3.25 mg/dL (0.0-4.40); Cholesterol 91 mg/dL (0-200); Globulin 3.7 g/dL (1.3-4.6); Glomerular Filtration Rate 40.5 mL/min (90-130); Glucose 161 mg/dL (65-115); HDL Cholesterol 28 mg/dL (60-100); LDL Cholesterol Calculated 38 mg/dL (50-129); LDL HDL Ratio 1.36 RATIO (0.00-3.22); Osmolality Calculated 298 mOsm/kg (285-295); Potassium 4.6 mmol/L (3.5-5.1); Sodium 140 mmol/L (136-145); Thyroid Stimulating Hormone 1.91 uIU/mL (0.27-4.20); Total Bilirubin 0.4 mg/dL (0.15-1.2); Total Protein 7.6 g/dL (6.6-8.7); Triglycerides 124 mg/dL (0-150)
[2023-05-26 13:19] LABS: Free T4 Free Thyroxine 1.08 ng/dL (0.82-1.77)
== END 2023-05-26 10:46 | disposition home or self-care (01) ==
PROVIDERS: PCP Family Medicine; Visit Provider Internal Medicine
DX: E11.9 Type 2 diabetes mellitus without complications (principal); E78.2 Mixed hyperlipidemia; E04.2 Nontoxic multinodular goiter; E11.65 Type 2 diabetes mellitus with hyperglycemia; E21.3 Hyperparathyroidism, unspecified; E55.9 Vitamin D deficiency, unspecified; N18.31 Chronic kidney disease, stage 3a; E11.621 Type 2 diabetes mellitus with foot ulcer; L97.522 Non-pressure chronic ulcer of other part of left foot with fat layer exposed; L60.3 Nail dystrophy; E11.42 Type 2 diabetes mellitus with diabetic polyneuropathy; M76.822 Posterior tibial tendinitis, left leg; M20.41 Other hammer toe(s) (acquired), right foot; M20.42 Other hammer toe(s) (acquired), left foot; Z91.81 History of falling; M21.372 Foot drop, left foot; M25.373 Other instability, unspecified ankle; Z79.4 Long term (current) use of insulin
CPT/HCPCS: 11042; 11721; 36415; 80053; 80061; 82306; 82310; 83036; 83970; 84439; 84443

== ENCOUNTER → 2023-06-02 13:01 | Outpatient (BNVA) | payer MEDICARE, MEDICAID, SELFPAY | PROVIDERS: PCP Family Medicine; Visit Provider Nurse Practitioner Family | DX: E11.52 Type 2 diabetes mellitus with diabetic peripheral angiopathy with gangrene (principal); E11.621 Type 2 diabetes mellitus with foot ulcer; L89.892 Pressure ulcer of other site, stage 2 | CPT/HCPCS: 11042; 99213; A6210 ==

== ENCOUNTER 2023-06-03 09:08 | Outpatient (CLI) | payer MEDICARE, MEDICAID, SELFPAY ==
[2023-06-03 10:34] LABS: Creatinine Urine, Random 60 mg/dL (28-217); Microalbum Creatinine Ratio Ur 17 mg/dL (0-20); Microalbumin Random Urine 1 ug/dL (0-20)
== END 2023-06-03 09:09 ==
PROVIDERS: PCP Family Medicine; Visit Provider Internal Medicine
DX: E11.65 Type 2 diabetes mellitus with hyperglycemia; E11.22 Type 2 diabetes mellitus with diabetic chronic kidney disease; N18.31 Chronic kidney disease, stage 3a; E78.2 Mixed hyperlipidemia; E04.2 Nontoxic multinodular goiter; E21.3 Hyperparathyroidism, unspecified; E55.9 Vitamin D deficiency, unspecified; Z79.4 Long term (current) use of insulin
CPT/HCPCS: 82044; 99214

== ENCOUNTER → 2023-06-11 14:19 | Outpatient (BNVA) | payer MEDICARE, MEDICAID, SELFPAY | PROVIDERS: PCP Family Medicine; Visit Provider Nurse Practitioner Family | DX: E11.52 Type 2 diabetes mellitus with diabetic peripheral angiopathy with gangrene (principal); E11.621 Type 2 diabetes mellitus with foot ulcer; L97.521 Non-pressure chronic ulcer of other part of left foot limited to breakdown of skin | CPT/HCPCS: 97597; A6210 ==

== ENCOUNTER → 2023-06-16 14:38 | Outpatient (BNVA) | payer MEDICARE, MEDICAID, SELFPAY | PROVIDERS: PCP Family Medicine; Visit Provider Thoracic Surgery (Cardiothoracic Vascular Surgery) | DX: E11.52 Type 2 diabetes mellitus with diabetic peripheral angiopathy with gangrene (principal); E11.621 Type 2 diabetes mellitus with foot ulcer; L97.421 Non-pressure chronic ulcer of left heel and midfoot limited to breakdown of skin | CPT/HCPCS: 97597; A6210 ==

== ENCOUNTER → 2023-06-23 15:29 | Outpatient (BNVA) | payer MEDICARE, MEDICAID, SELFPAY | PROVIDERS: PCP Family Medicine; Visit Provider Nurse Practitioner Family | DX: Z09 Encounter for follow-up examination after completed treatment for conditions other than malignant neoplasm (principal); Z87.2 Personal history of diseases of the skin and subcutaneous tissue | CPT/HCPCS: 99212 ==

== ENCOUNTER → 2023-07-08 12:52 | Outpatient (BNVA) | payer MEDICARE, MEDICAID, SELFPAY | PROVIDERS: PCP Family Medicine; Visit Provider Internal Medicine Cardiovascular Disease | DX: Z45.010 Encounter for checking and testing of cardiac pacemaker pulse generator [battery] (principal) | CPT/HCPCS: 93296 ==

== ENCOUNTER → 2023-07-09 09:26 | Outpatient (BNVA) | payer MEDICARE, MEDICAID, SELFPAY | PROVIDERS: PCP Family Medicine; Visit Provider Nurse Practitioner Family | DX: Z51.89 Encounter for other specified aftercare (principal) | CPT/HCPCS: 99212 ==

== ENCOUNTER → 2023-08-04 09:54 | Outpatient (BNVA) | payer MEDICARE, MEDICAID, SELFPAY | PROVIDERS: PCP Family Medicine; Visit Provider Podiatrist Foot & Ankle Surgery | DX: E11.42 Type 2 diabetes mellitus with diabetic polyneuropathy (principal); M76.822 Posterior tibial tendinitis, left leg; M20.41 Other hammer toe(s) (acquired), right foot; M20.42 Other hammer toe(s) (acquired), left foot; Z91.81 History of falling; M21.372 Foot drop, left foot; L60.3 Nail dystrophy; L84 Corns and callosities | CPT/HCPCS: 11056; 11721 ==

== ENCOUNTER → 2023-08-19 15:16 | Outpatient (BNVA) | payer MEDICARE, MEDICAID, SELFPAY | PROVIDERS: PCP Family Medicine; Visit Provider Otolaryngology | DX: E04.2 Nontoxic multinodular goiter (principal) | CPT/HCPCS: 99213; 99214 ==

== ENCOUNTER 2023-09-03 10:09 | Outpatient (CLI) | payer MEDICARE, MEDICAID, SELFPAY ==
[2023-09-03 12:23] LABS: Creatinine Urine, Random 81 mg/dL (28-217); Microalbum Creatinine Ratio Ur 12 mg/dL (0-20); Microalbumin Random Urine 1 ug/dL (0-20)
[2023-09-03 12:58] LABS: Calcium 10.5 mg/dL (8.5-10.5); Parathyroid Hormone 55.7 pg/mL (15-65)
[2023-09-03 13:09] LABS: 25 Hydroxy Vitamin D 32 ng/mL (30-100); Alanine Aminotransferase 14 U/L (0-33); Albumin Level 3.9 g/dL (3.5-5.2); Alkaline Phosphatase 72 U/L (35-105); Aspartate Amino Transferase 16 U/L (0-32); Blood Urea Nitrogen 35 mg/dL (8-23); Calcium 10.4 mg/dL (8.5-10.5); Carbon Dioxide 27 mmol/L (22-29); Chloride 105 mmol/L (98-107); Chol HDL Ratio 4.09 mg/dL (0.0-4.40); Cholesterol 135 mg/dL (0-200); Globulin 3.8 g/dL (1.3-4.6); Glucose 261 mg/dL (65-115); HDL Cholesterol 33 mg/dL (60-100); LDL Cholesterol Calculated 71 mg/dL (50-129); LDL HDL Ratio 2.15 RATIO (0.00-3.22); Osmolality Calculated 303 mOsm/kg (285-295); Sodium 138 mmol/L (136-145); Thyroid Stimulating Hormone 1.71 uIU/mL (0.27-4.20); Total Bilirubin 0.3 mg/dL (0.15-1.2); Total Protein 7.7 g/dL (6.6-8.7); Triglycerides 154 mg/dL (0-150)
[2023-09-03 13:34] LABS: Free T4 Free Thyroxine 1.08 ng/dL (0.82-1.77)
[2023-09-03 13:46] LABS: Estmated Average Glucose 180; Hemoglobin A1C 7.9 % (4.0-6.0)
== END 2023-09-03 10:10 | disposition home or self-care (01) ==
PROVIDERS: PCP Family Medicine; Visit Provider Internal Medicine
DX: E11.65 Type 2 diabetes mellitus with hyperglycemia (principal); E21.3 Hyperparathyroidism, unspecified; N18.31 Chronic kidney disease, stage 3a
CPT/HCPCS: 36415; 80053; 80061; 82044; 82306; 82310; 83036; 83970; 84439; 84443

== ENCOUNTER → 2023-09-09 09:59 | Outpatient (BNVA) | payer MEDICARE, MEDICAID, SELFPAY | PROVIDERS: PCP Family Medicine; Visit Provider Internal Medicine | DX: E78.2 Mixed hyperlipidemia (principal); E11.65 Type 2 diabetes mellitus with hyperglycemia; E55.9 Vitamin D deficiency, unspecified; E21.3 Hyperparathyroidism, unspecified; N18.31 Chronic kidney disease, stage 3a; E11.22 Type 2 diabetes mellitus with diabetic chronic kidney disease; Z79.4 Long term (current) use of insulin | CPT/HCPCS: 99214 ==

== ENCOUNTER → 2023-09-30 13:48 | Outpatient (BNVA) | payer MEDICARE, MEDICAID, SELFPAY | PROVIDERS: PCP Family Medicine; Visit Provider Podiatrist Foot & Ankle Surgery | DX: E11.42 Type 2 diabetes mellitus with diabetic polyneuropathy (principal); M20.41 Other hammer toe(s) (acquired), right foot; M20.42 Other hammer toe(s) (acquired), left foot; Z91.81 History of falling; L84 Corns and callosities; M21.372 Foot drop, left foot; L60.3 Nail dystrophy; Z79.4 Long term (current) use of insulin | CPT/HCPCS: 11056; 11721 ==

== ENCOUNTER → 2023-11-18 09:41 | Outpatient (BNVA) | payer MEDICARE, MEDICAID, SELFPAY | PROVIDERS: PCP Family Medicine; Visit Provider Internal Medicine Cardiovascular Disease | DX: I49.8 Other specified cardiac arrhythmias (principal); I35.8 Other nonrheumatic aortic valve disorders; I48.19 Other persistent atrial fibrillation; I83.93 Asymptomatic varicose veins of bilateral lower extremities; I95.2 Hypotension due to drugs; Z95.0 Presence of cardiac pacemaker | CPT/HCPCS: 99214 ==

== ENCOUNTER 2023-12-03 08:45 | Outpatient (CLI) | payer MEDICARE, MEDICAID, SELFPAY ==
[2023-12-03 10:00] LABS: Calcium 10.1 mg/dL (8.5-10.5)
[2023-12-03 10:01] LABS: Estmated Average Glucose 200; Hemoglobin A1C 8.6 % (4.0-6.0)
[2023-12-03 10:04] LABS: Alanine Aminotransferase 16 U/L (0-33); Albumin Level 3.8 g/dL (3.5-5.2); Alkaline Phosphatase 79 U/L (35-105); Anion Gap 17.1 (5-19); Aspartate Amino Transferase 15 U/L (0-32); Blood Urea Nitrogen 21 mg/dL (8-23); Calcium 9.9 mg/dL (8.5-10.5); Carbon Dioxide 24 mmol/L (22-29); Chloride 105 mmol/L (98-107); Chol HDL Ratio 2.86 mg/dL (0.0-4.40); Cholesterol 103 mg/dL (0-200); Free T4 Free Thyroxine 1.03 ng/dL (0.82-1.77); Globulin 3.6 g/dL (1.3-4.6); Glucose 206 mg/dL (65-115); HDL Cholesterol 36 mg/dL (60-100); LDL Cholesterol Calculated 40 mg/dL (50-129); LDL HDL Ratio 1.11 RATIO (0.00-3.22); Osmolality Calculated 303 mOsm/kg (285-295); Potassium 4.1 mmol/L (3.5-5.1); Sodium 142 mmol/L (136-145); Total Bilirubin 0.4 mg/dL (0.15-1.2); Total Protein 7.4 g/dL (6.6-8.7); Triglycerides 137 mg/dL (0-150)
[2023-12-03 10:07] LABS: Parathyroid Hormone 82.8 pg/mL (15-65)
[2023-12-03 10:31] LABS: Creatinine Urine, Random 128 mg/dL (28-217); Microalbum Creatinine Ratio Ur 8 mg/dL (0-20); Microalbumin Random Urine 1 ug/dL (0-20)
[2023-12-03 10:38] LABS: 25 Hydroxy Vitamin D 32 ng/mL (30-100)
== END 2023-12-03 08:46 | disposition home or self-care (01) ==
LOC: LAB 08:47
PROVIDERS: PCP Family Medicine; Visit Provider Internal Medicine
DX: N18.31 Chronic kidney disease, stage 3a (principal); E78.2 Mixed hyperlipidemia; E11.65 Type 2 diabetes mellitus with hyperglycemia; E55.9 Vitamin D deficiency, unspecified; E21.3 Hyperparathyroidism, unspecified
CPT/HCPCS: 36415; 80053; 80061; 82044; 82306; 82310; 83036; 83970; 84439; 84443

== ENCOUNTER → 2023-12-23 08:45 | Outpatient (BNVA) | payer MEDICARE, MEDICAID, SELFPAY | PROVIDERS: PCP Family Medicine; Visit Provider Internal Medicine Cardiovascular Disease | DX: Z45.010 Encounter for checking and testing of cardiac pacemaker pulse generator [battery] (principal) | CPT/HCPCS: 93296 ==

== ENCOUNTER 2024-01-03 17:43 | Emergency (ER) | payer MEDICARE, MEDICAID, SELFPAY ==
[2024-01-03 17:58] VITALS: BP 89/49; RESP 18; TEMP 36.2; O2SAT 96
--- NOTE | 2024-01-03 18:19 | W.ED.SKABFB ---
HPI - Skin/Abscess/Foreign Bdy General: Chief complaint: Skin/Abscess/Foreign Body Stated complaint: rash all over Time Seen by Provider: 01/03/24 18:12 History of Present Illness: 73-year-old female comes in today with rash to the upper extremities and the neck area. Patient reports that she developed a rash after her son came over with their pet dog. The dog had laid on the patient's throw and then the patient had developed what appeared to be insect bites. After starting steroid cream patient had increased amount of lesions developing to her arms and neck area. Patient appears nontoxic. Patient appears no acute distress. Review of Systems General: Reports: 10 or more systems reviewed and unremarkable except in HPI and below Skin/Breast: Reports: rash PFSH ED PFSH: Medical History Pacemaker Hx of needle biopsy Varicose vein of leg Swelling of lower leg Abnormal cardiovascular stress test Atrial fibrillation Irregular heart beat Atypical chest pain Nonrheumatic aortic valve sclerosis Ventricular arrhythmia Diabetes Depression Arthritis Hypertension Neuropathy Surgical History Hx of breast biopsy Status post endovenous radiofrequency ablation (RFA) of saphenous vein History of appendectomy Hx of cholecystectomy H/O: hysterectomy Family History Father CAD (coronary artery disease) Grandmother Cancer Diabetes Mother Dementia Brother Diabetes Lung disease Family/Other Lung disease Other Hyperlipidemia Hypertension Denies family history of Clotting disorder Chronic kidney disease (CKD) Suicide Anesthesia complication Bleeding disorder Stroke Social History Smoking and tobacco/nicotine status: never used tobacco/nicotine Alcohol intake: never Substance/Drug Use: never Physical Exam Const: COMMON NORMALS: alert HENMT: COMMON NORMALS: normocephalic HEAD & SCALP: normocephalic Neck/C-Spine: COMMON NORMALS: full ROM Resp: COMMON NORMALS: normal respiratory effort and clear to auscultation bilaterally AUSCULTATION: clear to auscultation bilaterally Cardio: COMMON NORMALS: regular rate RATE: regular rate Back/Pelvis: COMMON NORMALS: thoracic and lumbar spine normal to inspection Extremity: COMMON NORMALS: normal to inspection Neuro: SENSORIUM/ORIENTATION: Yes alert Skin: NARRATIVE SKIN EXAM: Maculopapular rash to the neck and upper extremities. Course Vital Signs: Vital signs: Vital Signs Temperature 97.2 F L 01/03/24 17:58 Respiratory Rate 18 01/03/24 17:58 Blood Pressure 89/49 01/03/24 17:58 Pulse Oximetry 96 01/03/24 17:58 Oxygen Delivery Me thod Room Air 01/03/24 17:58 MDM - Skin/Abscess/Foreign Bdy Medicial Decision Making 73-year-old female comes in today for rash to the upper extremities and neck. On exam patient has maculopapular rash to bilateral upper extremities with worsening symptoms around the neck. Patient reports symptoms have worsened since starting steroid cream. Differential diagnosis includes not limited to scabies, allergic reaction to cream, solar dermatitis, psoriasis, erythema multiforme. Recommended cessation of the steroid cream. Will cover with Stromectol or a possible scabies outbreak. Recommend follow-up with primary care in 3 to 5 days for recheck. Return to ED for new concerns. No radiology studies performed this visit Discharge Plan Discharge Patient Disposition: Home Clinical Impression: Animal-transmitted scabies Condition: Stable Prescriptions: New ivermectin 3 mg tablet 15 mg PO DAILY Qty: 10 0RF Rx Instructions: repeat in one week No Action (DME) Diabetic shoes with inserts Qty: 1 0RF Rx Instructions: As directed (DME) Articulating AFO ankle brace Qty: 1 0RF Rx Instructions: As directed cholecalciferol (vitamin D3) 50 mcg (2,000 unit) capsule 50 mcg PO DAILY multivitamin Tablet 1 tab PO QAM amlodipine 2.5 mg tablet 2.5 mg PO DAILY 30 Days Qty: 30 5RF (DME) insulin syringe-needle U-100 1 mL 31 gauge x 5/16 syringe See Rx Instructions .ROUTE .COMPLEX Qty: 300 0RF Dose Instruction: USE DIRECTED Rx Instructions: USE DIRECTED (DME) Manley Balance Brace to the Left See Rx Instructions .Route .MEDSUPPLY Qty: 1 0RF Rx Instructions: As directed by [employer] (DME) Free[employer] [place] [facility] See Rx Instructions .Route Qty: 1 0RF Rx Instructions: As directed (DME) Accomdated custom diabetic shoe with custom insoles See Rx Instructions .Route .MEDSUPPLY Qty: 1 0RF Rx Instructions: As directed (DME) pen needle, diabetic [BD Anayeli 2nd Gen Pen Needle] 32 gauge x 5/32 needle See Rx Instructions .ROUTE .COMPLEX Qty: 300 0RF Dose Instruction: USE DIRECTED Rx Instructions: USE DIRECTED (DME) FreeStyle [place] 2 Sensor Kit See Rx Instructions .ROUTE .COMPLEX Qty: 6 3RF Dose Instruction: USE DIRECTED Rx Instructions: USE DIRECTED lisinopril 40 mg tablet 40 mg .ROUTE DAILY Qty: 100 3RF Rx Instructions: 40 mg daily; simvastatin 40 mg tablet 40 mg PO BEDTIME Qty: 100 1RF Rx Instructions: order# [id number] insulin lispro [Humalog KwikPen Insulin] 100 unit/mL insulin pen See Rx Instructions SUBCUT TID Qty: 45 3RF Rx Instructions: Sliding scale three times a day potassium chloride 10 mEq capsule, extended release 10 meq PO QAM Qty: 100 3RF isosorbide mononitrate 60 mg tablet extended release 24 hr See Rx Instructions .ROUTE .COMPLEX Qty: 100 3RF Dose Instruction: TAKE 1 TABLET BY MOUTH DAILY Rx Instructions: TAKE 1 TABLET BY MOUTH DAILY torsemide 20 mg tablet 20 mg PO QAM Qty: 100 3RF insulin glargine [Lantus U-100 Insulin] 100 unit/mL solution 58 unit SUBCUT QAM Qty: 52.2 1RF omega-3 fatty acids 1,000 mg Capsule 1,000 mg PO BEDTIME Vitamin B-12 1,000 mcg Tablet 1,000 mcg PO QAM Nitrostat 0.4 mg Tablet, Sublingual 0.4 mg SUBLINGUAL Q5M PRN (Reason: Chest Pain) Rx Instructions: do not exceed 3 doses per episode triamcinolone acetonide 0.5 % ointment 1 applic topical BID Qty: 15 0RF Discharge Orders: Discharge ED (Routine); Ordered 01/03/24 Ordered By: Ji Bloom Referrals: Carlo Jason MD [Primary Care Provider] - Discharge Diet: Usual diet Discharge Activity: Increase activity as tolerated Patient Instructions: Scabies (ED) Activity Restrictions/Additional Instructions: Take ivermectin when prescription is filled, 5 tablets now and repeat 1 time in 1 week. Stop the use of steroid cream. Try to keep the area clean and dry. Follow-up with primary care in 1 week. Coding Level of Care Code ED [employer]
[2024-01-03 19:05] VITALS: BP 122/60; PULSE 77; RESP 17; O2SAT 96
== END 2024-01-03 19:11 | disposition home or self-care (01) ==
PROVIDERS: Emergency Provider Nurse Practitioner Family; PCP Family Medicine
DX: B86 Scabies (principal); Z79.4 Long term (current) use of insulin
CPT/HCPCS: 99283

== ENCOUNTER 2024-01-12 01:12 | Emergency (ER) | payer MEDICARE, MEDICAID, SELFPAY ==
[2024-01-12 01:21] VITALS: BP 137/67; PULSE 75; RESP 16; TEMP 39.4; O2SAT 95; BMI 34.7
[2024-01-12 01:24] VITALS: BP 100/38; PULSE 67; RESP 16; O2SAT 95
--- NOTE | 2024-01-12 01:45 | XRR_ITS ---
PROCEDURE INFORMATION: Exam: XR Chest Exam date and time: 01/12/2024 2:44 AM Age: 73 years old Clinical indication: Fever; Prior surgery; Surgery date: 6+ months; Surgery type: Pacemaker TECHNIQUE: Imaging protocol: Radiologic exam of the chest. Views: 1 view. COMPARISON: CR XR chest 1V [id number] 02/17/2023 5:55 AM FINDINGS: Tubes, catheters and devices: Cardiac pacer system with leads in stable positions. Lungs: Unremarkable. No consolidation. Pleural spaces: Unremarkable. No pleural effusion. No pneumothorax. Heart/Mediastinum: Unremarkable. No cardiomegaly. Bones/joints: Unremarkable. XR/XR chest 1V portable [id number] IMPRESSION: No acute cardiopulmonary abnormality.
[2024-01-12 02:24] LABS: Basophils % 0.3 %; Eosinophils # 0.1 10^3/uL (0.0-0.8); Eosinophils % 0.7 %; Hematocrit 33.3 % (36-47); Lymphocytes # 1.5 10^3/uL (0.8-4.8); Lymphocytes % 16.9 %; Mean Corpuscular HGB Conc 32.7 g/dL (30-55); Mean Corpuscular Hemoglobin 29.3 pg (27-33); Mean Corpuscular Volume 89.5 fl (85-98); Monocytes # 0.8 10^3/uL (0.2-0.9); Monocytes % 8.5 %; Neutrophils # 6.55 10^3/uL (1.8-7.7); Neutrophils % 73.2 %; Nucleated Red Blood Cells % 0 %; Platelet Count 236 10^3/cmm (157-399); Red Blood Count 3.72 10^6/uL (3.85-5.65); Red Cell Distribution Width 12.5 % (12.1-15.1); White Blood Count 8.95 10^3/uL (3.29-11.43)
[2024-01-12 02:45] LABS: Alanine Aminotransferase 94 U/L (0-33); Albumin Level 3.4 g/dL (3.5-5.2); Alkaline Phosphatase 113 U/L (35-105); Aspartate Amino Transferase 51 U/L (0-32); Blood Urea Nitrogen 33 mg/dL (8-23); Calcium 9.6 mg/dL (8.5-10.5); Carbon Dioxide 20 mmol/L (22-29); Chloride 99 mmol/L (98-107); Creatinine Clr Calc Pharmacy 46.1638; Globulin 3.5 g/dL (1.3-4.6); Glucose 263 mg/dL (65-115); Magnesium 1.7 mg/dL (1.7-2.3); Osmolality Calculated 294 mOsm/kg (285-295); Sodium 134 mmol/L (136-145); Total Bilirubin 0.5 mg/dL (0.15-1.2); Total Protein 6.9 g/dL (6.6-8.7)
--- NOTE | 2024-01-12 02:45 | ED_ITS ---
HPI - Skin/Abscess/Foreign Bdy 2 General: Chief complaint: Skin/Abscess/Foreign Body Stated complaint: rash, headache Time Seen by Provider: 01/12/24 02:40 History of Present Illness: Presents to the ER with complaints of rash on arms face and neck, patient said this was a reaction to Lasix and then she had a reaction to the steroid that was given to her patient has been to her PCP and menhaden fishing crew member and had skin biopsies for this. When patient presented to here for this we noticed her temperature was 102.9. Patient has no other complaints at this time. Review of Systems 2 General: Reports: 10 or more systems reviewed and unremarkable except in HPI and below PFSH ED 2 PFSH: Medical History Pacemaker Hx of needle biopsy Varicose vein of leg Swelling of lower leg Abnormal cardiovascular stress test Atrial fibrillation Irregular heart beat Atypical chest pain Nonrheumatic aortic valve sclerosis Ventricular arrhythmia Diabetes Depression Arthritis Hypertension Neuropathy Surgical History Hx of breast biopsy Status post endovenous radiofrequency ablation (RFA) of saphenous vein History of appendectomy Hx of cholecystectomy H/O: hysterectomy Family History Father CAD (coronary artery disease) Grandmother Cancer Diabetes Mother Dementia Brother Diabetes Lung disease Family/Other Lung disease Other Hyperlipidemia Hypertension Denies family history of Clotting disorder Chronic kidney disease (CKD) Suicide Anesthesia complication Bleeding disorder Stroke Social History Smoking and tobacco/nicotine status: never used tobacco/nicotine Alcohol intake: never Substance/Drug Use: never Physical Exam 2 Const: COMMON NORMALS: no acute distress, average body habitus, patient oriented x3, no limitations, healthy appearing, alert and well nourished HENMT: COMMON NORMALS: normocephalic, atraumatic, hearing grossly normal bilaterally, external ears normal, Normal external nose present and moist oral mucous membranes HEAD & SCALP: normocephalic and atraumatic NOSE: Normal external nose present EXTERNAL EAR: Yes external ears normal Neck/C-Spine: COMMON NORMALS: full ROM, no lymphadenopathy, supple, no meningeal signs, no JVD and Thyroid normal THYROID: Thyroid normal Chest: COMMONS NORMALS: normal inspection of the chest and normal palpation of entire chest wall Resp: COMMON NORMALS: normal respiratory effort, No retractions, No use of accessory muscles and clear to auscultation bilaterally AUSCULTATION: clear to auscultation bilaterally Cardio: COMMON NORMALS: no JVD, regular rate, regular rhythm, S1 normal heart sound present, S2 normal heart sound present, No gallops present (Cardio), No clicks present (Cardio), No murmurs present (Cardio) and No rub (Cardio) R ATE: regular rate RHYTHM: regular rhythm HEART SOUNDS: S1 normal heart sound present and S2 normal heart sound present GI: COMMON NORMALS: Normal to inspection, nondistended, normoactive bowel sounds present, Soft to palpation, non-tender, No hepatosplenomegaly present and no masses PALPATION: Yes Soft to palpation and Yes No hepatosplenomegaly present Neuro: COMMON NORMALS: patient oriented x3 SENSORIUM/ORIENTATION: Yes alert MENINGEAL SIGNS: Yes no meningeal signs Course 2 Vital Signs: Vital signs: Vital Signs Temperature 99.7 F H 01/12/24 03:24 Pulse Rate 114 H 01/12/24 05:46 Respiratory Rate 16 01/12/24 04:54 Blood Pressure 106/65 01/12/24 05:46 Pulse Oximetry 96 01/12/24 05:46 Oxygen Delivery Me thod Room Air 01/12/24 01:21 MDM - Skin/Abscess/Foreign Bdy Medicial Decision Making Patient physical exam and lab work to include CBC CMP urinalysis, influenza, COVID, all of which was essentially unremarkable for the patient. Patient had chest x-ray which was read off as no acute abnormality, patient was given 1 g of Tylenol and a liter bolus normal saline which reduced her temperature from 102.9 down to 99.7. Patient be discharged from the ER and instructed to follow-up with her menhaden fishing crew member for her further skin conditions. Lab Data 01/12/24 02:11 01/12/24 02:11 Radiology Impressions Chest X-Ray 01/12/24 01:45 IMPRESSION: No acute cardiopulmonary abnormality. Laboratory Results WBC 8.95 10^3/uL (3.29-11.43) 01/12/24 02:11 RBC 3.72 10^6/uL (3.85-5.65) L 01/12/24 02:11 Hgb 10.90 g/dL (11.27-16.99) L 01/12/24 02:11 Hct 33.3 % (36-47) L 01/12/24 02:11 MCV 89.5 fl (85-98) 01/12/24 02:11 MCH 29.3 pg (27-33) 01/12/24 02:11 MCHC 32.7 g/dL (30-55) 01/12/24 02:11 RDW 12.5 % (12.1-15.1) 01/12/24 02:11 Plt Count 236 10^3/cmm (157-399) 01/12/24 02:11 MPV 10.0 fL (7.4-10.4) 01/12/24 02:11 Neut % (Auto) 73.2 % 01/12/24 02:11 Lymph % (Auto) 16.9 % 01/12/24 02:11 [place] % (Auto) 8.5 % 01/12/24 02:11 Eos % (Auto) 0.7 % 01/12/24 02:11 Baso % (Auto) 0.3 % 01/12/24 02:11 Neut # (Auto) 6.55 10^3/uL (1.8-7.7) 01/12/24 02:11 Lymph # (Auto) 1.5 10^3/uL (0.8-4.8) 01/12/24 02:11 [place] # (Auto) 0.8 10^3/uL (0.2-0.9) 01/12/24 02:11 Eos # (Auto) 0.1 10^3/uL (0.0-0.8) 01/12/24 02:11 Baso # (Auto) 0.0 10^3/uL (0.0-0.1) 01/12/24 02:11 Nucleated RBC % (auto) 0 % 01/12/24 02:11 Nucleated RBCs # 0.0 /100WBC 01/12/24 02:11 Sodium 134 mmol/L (136-145) L 01/12/24 02:11 Potassium 5.0 mmol/L (3.5-5.1) 01/12/24 02:11 Chloride 99 mmol/L (98-107) 01/12/24 02:11 Carbon Dioxide 20 mmol/L (22-29) L 01/12/24 02:11 Anion Gap 20.0 (5-19) H 01/12/24 02:11 BUN 33 mg/dL (8-23) H 01/12/24 02:11 Creatinine 1.5 mg/dL (0.5-0.9) H 01/12/24 02:11 GFR Calculation Not Reportable 01/12/24 02:11 Glucose 263 mg/dL (65-115) H 01/12/24 02:11 Calculated Osmolality 294 mOsm/kg (285-295) 01/12/24 02:11 Calcium 9.6 mg/dL (8.5-10.5) 01/12/24 02:11 Magnesium 1.7 mg/dL (1.7-2.3) 01/12/24 02:11 Total Bilirubin 0.5 mg/dL (0.15-1.2) 01/12/24 02:11 AST 51 U/L (0-32) H 01/12/24 02:11 ALT 94 U/L (0-33) H 01/12/24 02:11 Alkaline Phosphatase 113 U/L (35-105) H 01/12/24 02:11 Total Protein 6.9 g/dL (6.6-8.7) 01/12/24 02:11 Albumin 3.4 g/dL (3.5-5.2) L 01/12/24 02:11 Globulin 3.5 g/dL (1.3-4.6) 01/12/24 02:11 Urine Color Yellow (Yellow) 01/12/24 03:49 Urine Appearance Cloudy (CLEAR) A 01/12/24 03:49 Urine pH 5 (5-7) 01/12/24 03:49 Ur Specific [place] 1.015 (1.005-1.030) 01/12/24 03:49 Urine Protein Trace (Negative) 01/12/24 03:49 Urine Glucose (UA) 2+ (Normal) H 01/12/24 03:49 Urine Ketones Negative (Negative) 01/12/24 03:49 Urine Blood 2+ (Negative) H 01/12/24 03:49 Urine Nitrate Negative (Negative) 01/12/24 03:49 Urine Bilirubin Neg (Negative) 01/12/24 03:49 Urine Urobilinogen Neg mg/dL (Negative) 01/12/24 03:49 Ur Leukocyte Esterase 1+ (Negative) H 01/12/24 03:49 Urine RBC 5-10 /hpf (0-2) H 01/12/24 03:49 Urine WBC 15-25 /hpf (0-5) H 01/12/24 03:49 Ur Squamous Epith Cells 25-40 /hpf (0-5) H 01/12/24 03:49 Amorphous Sediment Not Reportable 01/12/24 03:49 Urine Bacteria 2+ /hpf (NONE) H 01/12/24 03:49 Urine Mucus 2+ /hpf 01/12/24 03:49 Influenza Type A Ag negative (Negative) 01/12/24 02:57 Influenza Type B Ag negative (Negative) 01/12/24 02:57 SARS-CoV-2 Ag (Rapid) negative (Negative) 01/12/24 02:57 All radiology interpretation(s) finalized by discharge Discharge Plan Discharge Patient Disposition: Home Clinical Impression: Dermatitis Fever Qualifiers: Fever type: unspecified Qualified Code(s): R50.9 - Fever, unspecified Condition: Stable Prescriptions: No Action (DME) Diabetic shoes with inserts Qty: 1 0RF Rx Instructions: As directed (DME) Articulating AFO ankle brace Qty: 1 0RF Rx Instructions: As directed cholecalciferol (vitamin D3) 50 mcg (2,000 unit) capsule 50 mcg PO DAILY multivitamin Tablet 1 tab PO QAM amlodipine 2.5 mg tablet 2.5 mg PO DAILY 30 Days Qty: 30 5RF (DME) insulin syringe-needle U-100 1 mL 31 gauge x 5/16 syringe See Rx Instructions .ROUTE .COMPLEX Qty: 300 0RF Dose Instruction: USE DIRECTED Rx Instructions: USE DIRECTED (DME) [place] Balance Brace to the Left See Rx Instructions .Route .MEDSUPPLY Qty: 1 0RF Rx Instructions: As directed by [employer] (DME) FreeStyle [place] 2 [place] Misc See Rx Instructions .Route Qty: 1 0RF Rx Instructions: As directed (DME) Accomdated custom diabetic shoe with custom insoles See Rx Instructions .Route .MEDSUPPLY Qty: 1 0RF Rx Instructions: As directed (DME) pen needle, diabetic [BD Anayeli 2nd Gen Pen Needle] 32 gauge x 5/32 needle See Rx Instructions .ROUTE .COMPLEX Qty: 300 0RF Dose Instruction: USE DIRECTED Rx Instructions: USE DIRECTED (DME) FreeStyle [place] 2 Sensor Kit See Rx Instructions .ROUTE .COMPLEX Qty: 6 3RF Dose Instruction: USE DIRECTED Rx Instructions: USE DIRECTED lisinopril 40 mg tablet 40 mg .ROUTE DAILY Qty: 100 3RF Rx Instructions: 40 mg daily; simvastatin 40 mg tablet 40 mg PO BEDTIME Qty: 100 1RF Rx Instructions: order# [id number] insulin lispro [Humalog KwikPen Insulin] 100 unit/mL insulin pen See Rx Instructions SUBCUT TID Qty: 45 3RF Rx Instructions: Sliding scale three times a day potassium chloride 10 mEq capsule, extended release 10 meq PO QAM Qty: 100 3RF isosorbide mononitrate 60 mg tablet extended release 24 hr See Rx Instructions .ROUTE .COMPLEX Qty: 100 3RF Dose Instruction: TAKE 1 TABLET BY MOUTH DAILY Rx Instructions: TAKE 1 TABLET BY MOUTH DAILY torsemide 20 mg tablet 20 mg PO QAM Qty: 100 3RF insulin glargine [Lantus U-100 Insulin] 100 unit/mL solution 58 unit SUBCUT QAM Qty: 52.2 1RF omega-3 fatty acids 1,000 mg Capsule 1,000 mg PO BEDTIME Vitamin B-12 1,000 mcg Tablet 1,000 mcg PO QAM Nitrostat 0.4 mg Tablet, Sublingual 0.4 mg SUBLINGUAL Q5M PRN (Reason: Chest Pain) Rx Instructions: do not exceed 3 doses per episode ivermectin 3 mg tablet 15 mg PO DAILY Qty: 10 0RF Rx Instructions: repeat in one week triamcinolone acetonide 0.5 % ointment 1 applic topical BID Qty: 15 0RF Discharge Orders: Discharge ED (Routine); Ordered 01/12/24 Ordered By: Dmitriy Brown Referrals: Carlo Jason MD [Primary Care Provider] - 1 week Patient Instructions: Fever - Adult, Dermatitis (ED) Activity Restrictions/Additional Instructions: Your evaluation ER did not show any acute causes of your fever or dermatitis. Please follow-up with your menhaden fishing crew member for your dermatitis and rash. It is thought you have a viral syndrome due to your fever. Please follow-up with your primary care physician within the next 7 days for further evaluation and treatment. Thank you for choosing [facility] for your healthcare needs today. Please realize that you were seen in the emergency department and that we are providing you with an emergency medical screening exam and this may not be a complete and all exclusive of all testing and/or medical workup we may need to determine your element or severity of your illness. It is very important that you follow-up as instructed with your primary care provider or specialist for the additional evaluation and to discuss your medical treatment plan. You may return to the emergency department should you have concerns or if your condition changes or worsens in any way. Coding Level of Care Code ED Eligibility Counselor for Nile Solomon
[2024-01-12 03:24] VITALS: BP 107/52; PULSE 77; RESP 14; TEMP 37.6; O2SAT 95
[2024-01-12 03:29] LABS: Influenza A by IFA negative (Negative); Influenza B by IFA negative (Negative); SARS Covid-2 Antigen negative (Negative)
[2024-01-12] MEDS: acetaminophen 500 mg Tablet 1000 MG PO (03:46)
[2024-01-12 04:01] LABS: Add Urine Microscopic? YES; Bilirubin Urine Neg (Negative); Blood Urine 2+ (Negative); Glucose Urine UA 2+ (Normal); Ketones Urine Negative (Negative); Leukocyte Esterase Urine 1+ (Negative); Nitrate Urine Negative (Negative); Protein Urine Trace (Negative); Specific Gravity, Urine 1.015 (1.005-1.030); Urine Appearance Cloudy (CLEAR); Urine Color Yellow (Yellow); Urobilinogen Urine Neg (Negative); WBC Urine 15-25 /hpf (0-5); pH Urine 5 (5-7)
[2024-01-12] MEDS: sodium chloride 0.9% 1,000 ML 999 ML IV (04:01)
[2024-01-12 04:02] LABS: Add Urine Culture? No; Bacteria Urine 2+ /hpf; Mucus Urine 2+ /hpf; Squamous Epithelial Cell Urine 25-40 /hpf (0-5)
[2024-01-12 04:54] VITALS: BP 96/55; PULSE 105; RESP 16; O2SAT 96
[2024-01-12 05:46] VITALS: BP 106/65; PULSE 114; O2SAT 96
== END 2024-01-12 05:59 | disposition home or self-care (01) ==
PROVIDERS: Emergency Provider Emergency Medicine; PCP Family Medicine
DX: L30.9 Dermatitis, unspecified (principal); R50.9 Fever, unspecified; Z79.4 Long term (current) use of insulin; Z11.52 Encounter for screening for COVID-19; I10 Essential (primary) hypertension; E11.40 Type 2 diabetes mellitus with diabetic neuropathy, unspecified
CPT/HCPCS: 36415; 71045; 80053; 81001; 83735; 85025; 87426; 87804; 99284; J7030

== ENCOUNTER 2024-01-13 10:54 | Outpatient (CLI) | payer MEDICARE, MEDICAID, SELFPAY ==
[2024-01-13 12:19] LABS: Erythrocyte Sedimentation Rate 37 mm/hr (0-15)
[2024-01-13 12:46] LABS: C Reactive Protein 66.2 mg/L (0.0-4.9)
[2024-01-13 13:09] LABS: Hepatitis B Core AB, Total Non-Reactive (Nonreactive); Hepatitis B Surface AB < 3.5 (11.5-1000); Hepatitis B Surface Antigen Non-Reactive (Nonreactive); Hepatitis C Virus Antibody Non-Reactive (Nonreactive)
[2024-01-14 13:20] LABS: PROTEIN, TOTAL 6.2 g/dL (6.1-8.1)
[2024-01-14 15:05] LABS: Anti-Nuclear Antibody Screen NEGATIVE (NEGATIVE)
[2024-01-15 09:46] LABS: ALPHA 1 GLOBULIN 0.4 g/dL (0.2-0.3); ALPHA 2 GLOBULIN 0.9 g/dL (0.5-0.9); BETA 1 GLOBULIN 0.4 g/dL (0.4-0.6); BETA 2 GLOBULIN 0.5 g/dL (0.2-0.5); GAMMA GLOBULIN 1.1 g/dL (0.8-1.7)
== END 2024-01-13 10:55 | disposition home or self-care (01) ==
LOC: LAB 10:56
PROVIDERS: PCP Family Medicine; Visit Provider Dermatology
DX: L30.9 Dermatitis, unspecified (principal)
CPT/HCPCS: 36415; 84155; 84165; 85651; 86021; 86036; 86038; 86140; 86431; 86704; 86706; 86803; 87340

== ENCOUNTER 2024-01-14 08:06 | Outpatient (CLI) | payer MEDICARE, MEDICAID, SELFPAY ==
[2024-01-14 08:58] LABS: INR 1.28 (0.8-1.2)
[2024-01-15 13:10] LABS: Lyme AB Screen <0.90 index
== END 2024-01-14 08:07 | disposition home or self-care (01) ==
PROVIDERS: PCP Family Medicine; Visit Provider Dermatology
DX: R23.3 Spontaneous ecchymoses (principal); R50.9 Fever, unspecified; R21 Rash and other nonspecific skin eruption; L30.9 Dermatitis, unspecified
CPT/HCPCS: 36415; 82595; 85610; 85730; 86618; 86666; 86757

== ENCOUNTER → 2024-01-18 14:32 | Outpatient (BNVA) | payer MEDICARE, MEDICAID, SELFPAY | PROVIDERS: PCP Family Medicine; Visit Provider Dermatology | DX: L27.0 Generalized skin eruption due to drugs and medicaments taken internally (principal); L30.9 Dermatitis, unspecified; R23.3 Spontaneous ecchymoses | CPT/HCPCS: 99214 ==

== ENCOUNTER → 2024-02-04 13:48 | Outpatient (BNVA) | payer MEDICARE, MEDICAID, SELFPAY | PROVIDERS: PCP Family Medicine; Visit Provider Dermatology | DX: L26 Exfoliative dermatitis (principal); R23.3 Spontaneous ecchymoses; L01.01 Non-bullous impetigo | CPT/HCPCS: 99214 ==

== ENCOUNTER 2024-02-05 07:54 | Outpatient (CLI) | payer MEDICARE, MEDICAID, SELFPAY ==
[2024-02-05 08:52] LABS: Calcium 10.2 mg/dL (8.5-10.5)
[2024-02-05 08:54] LABS: Creatinine Urine, Random 117 mg/dL (28-217); Microalbum Creatinine Ratio Ur 9 mg/dL (0-20); Microalbumin Random Urine 1 ug/dL (0-20)
[2024-02-05 08:55] LABS: Estmated Average Glucose 169; Hemoglobin A1C 7.5 % (4.0-6.0)
[2024-02-05 08:59] LABS: Parathyroid Hormone 43.5 pg/mL (15-65)
[2024-02-05 09:02] LABS: Alanine Aminotransferase 13 U/L (0-33); Albumin Level 3.4 g/dL (3.5-5.2); Alkaline Phosphatase 58 U/L (35-105); Anion Gap 16.9 (5-19); Aspartate Amino Transferase 14 U/L (0-32); Blood Urea Nitrogen 19 mg/dL (8-23); Carbon Dioxide 24 mmol/L (22-29); Chloride 100 mmol/L (98-107); Chol HDL Ratio 2.36 mg/dL (0.0-4.40); Cholesterol 111 mg/dL (0-200); Free T4 Free Thyroxine 1.16 ng/dL (0.82-1.77); Globulin 3.3 g/dL (1.3-4.6); Glucose 144 mg/dL (65-115); HDL Cholesterol 47 mg/dL (60-100); LDL Cholesterol Calculated 43 mg/dL (50-129); LDL HDL Ratio 0.91 RATIO (0.00-3.22); Osmolality Calculated 289 mOsm/kg (285-295); Potassium 3.9 mmol/L (3.5-5.1); Sodium 137 mmol/L (136-145); Thyroid Stimulating Hormone 2.66 uIU/mL (0.27-4.20); Total Bilirubin 0.6 mg/dL (0.15-1.2); Total Protein 6.7 g/dL (6.6-8.7); Triglycerides 107 mg/dL (0-150)
[2024-02-05 09:49] LABS: 25 Hydroxy Vitamin D 30 ng/mL (30-100)
== END 2024-02-05 07:55 | disposition home or self-care (01) ==
PROVIDERS: PCP Family Medicine; Visit Provider Internal Medicine
DX: E21.3 Hyperparathyroidism, unspecified (principal); E11.9 Type 2 diabetes mellitus without complications; E55.9 Vitamin D deficiency, unspecified
CPT/HCPCS: 36415; 80053; 80061; 82044; 82306; 82310; 83036; 83970; 84439; 84443

== ENCOUNTER → 2024-02-10 10:38 | Outpatient (BNVA) | payer MEDICARE, MEDICAID, SELFPAY | PROVIDERS: PCP Family Medicine; Visit Provider Podiatrist Foot & Ankle Surgery | DX: E11.8 Type 2 diabetes mellitus with unspecified complications (principal); E11.42 Type 2 diabetes mellitus with diabetic polyneuropathy; M20.41 Other hammer toe(s) (acquired), right foot; M20.42 Other hammer toe(s) (acquired), left foot; Z91.81 History of falling; L84 Corns and callosities; M21.372 Foot drop, left foot; L60.3 Nail dystrophy; Z79.4 Long term (current) use of insulin; E11.22 Type 2 diabetes mellitus with diabetic chronic kidney disease | CPT/HCPCS: 11056; 11721; 99214 ==

== ENCOUNTER → 2024-02-24 15:01 | Outpatient (BNVA) | payer MEDICARE, MEDICAID, SELFPAY | PROVIDERS: PCP Family Medicine; Visit Provider Dermatology | DX: L30.9 Dermatitis, unspecified (principal); L26 Exfoliative dermatitis; R23.3 Spontaneous ecchymoses; L01.01 Non-bullous impetigo | CPT/HCPCS: 11102; 99214 ==

== ENCOUNTER → 2024-03-10 09:50 | Outpatient (BNVA) | payer MEDICARE, MEDICAID, SELFPAY | PROVIDERS: PCP Family Medicine; Visit Provider Internal Medicine Rheumatology | DX: L27.0 Generalized skin eruption due to drugs and medicaments taken internally (principal); M19.90 Unspecified osteoarthritis, unspecified site | CPT/HCPCS: 36415; 80076; 82565; 83520; 85025; 86200; 86480; 86704; 86803; 87340; 99204 ==

== ENCOUNTER 2024-03-13 02:45 | Inpatient (IN) | payer MEDICARE, MEDICAID, SELFPAY ==
[2024-03-13] VITALS (21 sets, daily range): BP systolic 113–186; BP diastolic 56–122; PULSE 75–112; RESP 9–21; TEMP 36.6–36.9; O2SAT 91–100; BMI 25.8; BMI 33.4
--- NOTE | 2024-03-13 03:11 | XRR_ITS ---
PROCEDURE INFORMATION: Exam: XR Chest Exam date and time: 03/13/2024 3:12 AM Age: 73 years old Clinical indication: Shortness of breath; Prior surgery; Surgery date: 6+ months; Surgery type: Pacer; Patient HX: C/O SOB. TECHNIQUE: Imaging protocol: Radiologic exam of the chest. Views: 1 view. COMPARISON: CR XR chest 1V portable [id number] 01/12/2024 2:44 AM FINDINGS: Tubes, catheters and devices: Dual lead pacemaker is seen on the left. Lungs: There may be minimal central vascular congestion. No focal consolidation is appreciated. Pleural spaces: Unremarkable. No pleural effusion. No pneumothorax. Heart/Mediastinum: The heart is enlarged. There is calcified plaque involving the aorta. Bones/joints: Unremarkable. XR/XR chest 1V portable [id number] IMPRESSION: 1. Cardiomegaly with possible minimal central vascular congestion.
[2024-03-13 03:24] LABS: Basophils % 0.3 %; Eosinophils # 0.1 10^3/uL (0.0-0.8); Eosinophils % 0.7 %; Hematocrit 35.8 % (36-47); Lymphocytes # 3.2 10^3/uL (0.8-4.8); Mean Corpuscular HGB Conc 30.7 g/dL (30-55); Mean Corpuscular Volume 87.7 fl (85-98); Mean Platelet Volume 9.8 fL (7.4-10.4); Monocytes # 0.6 10^3/uL (0.2-0.9); Monocytes % 4.6 %; Neutrophils # 8.24 10^3/uL (1.8-7.7); Neutrophils % 67.7 %; Nucleated Red Blood Cells % 0 %; Platelet Count 359 10^3/cmm (157-399); Red Blood Count 4.08 10^6/uL (3.85-5.65); Red Cell Distribution Width 13.6 % (12.1-15.1); White Blood Count 12.17 10^3/uL (3.29-11.43)
[2024-03-13 03:44] LABS: Anion Gap 13.8 (5-19); Blood Urea Nitrogen 21 mg/dL (8-23); Carbon Dioxide 28 mmol/L (22-29); Chloride 102 mmol/L (98-107); Creatinine Clr Calc Pharmacy 75.1034; Glucose 215 mg/dL (65-115); Osmolality Calculated 299 mOsm/kg (285-295); Potassium 3.8 mmol/L (3.5-5.1); Sodium 140 mmol/L (136-145)
--- NOTE | 2024-03-13 05:21 | W.ED.SOB ---
HPI - SOB/Dyspnea General: Chief Complaint: ER Hold Stated Complaint: SOB Time Seen by Provider: 03/13/24 04:32 History of Present Illness: HPI Narrative: 73-year-old female with no prior history of coronary disease. She presents with hypertension, shortness of breath this morning. She has a headache she says. She was not ill yesterday. Shortness of breath developed somewhat suddenly. She does not normally use oxygen. She says that at home her oxygen saturation dropped to the low 80s. It is improved now on oxygen. She denies fever. She denies sputum production. She denies any increase in leg swelling. She does have a dermatitis which she says has improved after coming off of Lasix. Related Data Home Medications Medication Instructions Recorded Confirmed multivitamin 1 tab PO QAM 11/07/19 03/10/24 cholecalciferol (vitamin D3) 50 50 mcg PO DAILY 07/31/20 03/10/24 mcg (2,000 unit) capsule nitroglycerin 0.4 mg sublingual 0.4 mg sublingual Q5M PRN Chest 02/17/23 03/10/24 tablet (Nitrostat) Pain Previous Rx's Medication Instructions Recorded Articulating AFO ankle brace #1 ea 11/08/19 Diabetic shoes with inserts #1 ea 11/08/19 Manley Balance Brace to the Left #1 ea 01/29/22 flash glucose scanning reader #1 ea 11/21/22 (FreeStyle [place] 2 [place]) Accomdated custom diabetic shoe #1 ea 12/15/22 with custom insoles isosorbide mononitrate 60 mg See Rx Instructions .Route 11/05/23 tablet,extended release 24 hr .COMPLEX #100 tabs amlodipine 2.5 mg tablet 2.5 mg PO DAILY HTN 30 days #30 01/21/24 tabs insulin glargine 100 unit/mL 58 unit (0.58 mL) SUBCUT QAM #52.2 02/10/24 subcutaneous solution (Lantus mL U-100 Insulin) simvastatin 40 mg tablet 40 mg PO BEDTIME #100 tabs 02/10/24 insulin lispro 100 unit/mL See Rx Instructions SUBCUT TID #45 03/04/24 subcutaneous pen (Humalog KwikPen mL (U-100) Insulin) insulin syringe-needle U-100 1 mL #300 ea 03/04/24 31 gauge x /16 flash glucose sensor (FreeStyle #6 ea 03/08/24 [place] 2 Sensor kit) pen needle, diabetic 32 gauge x #300 ea 03/08/24 (BD Anayeli 2nd Gen Pen Needle) Allergies Allergy/AdvReac Type Severity Reaction Status Date / Time torsemide Allergy Severe ALGY-Rash Verified 02/10/24 11:10 adhesive tape Allergy Unknown unknown Verified 02/10/24 11:10 empagliflozin Allergy Unknown Unknown Verified 03/10/24 10:20 [From Jardiance] morphine Allergy Unknown unknown Verified 02/10/24 11:10 naproxen [From Aleve] Allergy Unknown Unknown Verified 03/10/24 10:20 Penicillins Allergy Unknown ADR-Diarrhe Verified 02/10/24 11:10 a pregabalin [From Lyrica] Allergy Unknown unknown Verified 02/10/24 11:10 sitagliptin [From Januvia] Allergy Unknown unknown Verified 02/10/24 11:10 triamcinolone Allergy Unknown Unknown Verified 03/10/24 10:20 celecoxib [From Celebrex] Allergy stomach Verified 02/10/24 11:10 bleed latex Allergy ADR-Itching Verified 02/10/24 11:10 metformin Allergy ADR-Diarrhe Verified 02/10/24 11:10 a milk Allergy Unknown Verified 02/10/24 11:10 aspirin AdvReac eye bleeds Verified 02/10/24 11:10 furosemide AdvReac N/V, Verified 02/10/24 11:10 Diarrhea, [place] PFSH ED PFSH: Medical History Inflammatory arthritis Drug eruption Pacemaker Hx of needle biopsy Varicose vein of leg Swelling of lower leg Abnormal cardiovascular stress test Atrial fibrillation Irregular heart beat Atypical chest pain Nonrheumatic aortic valve sclerosis Ventricular arrhythmia Diabetes Depression Arthritis Hypertension Neuropathy Surgical History Hx of breast biopsy Status post endovenous radiofrequency ablation (RFA) of saphenous vein History of appendectomy Hx of cholecystectomy H/O: hysterectomy Family History Father CAD (coronary artery disease) Grandmother Cancer Diabetes Mother Dementia Brother Diabetes Lung disease Family/Other Lung disease Other Hyperlipidemia Hypertension Denies family history of Clotting disorder Chronic kidney disease (CKD) Suicide Anesthesia complication Bleeding disorder Stroke Social History Smoking and tobacco/nicotine status: never used tobacco/nicotine Alcohol intake: never Substance/Drug Use: never Physical Exam Const: GENERAL APPEARANCE: cooperative, anxious and frail appearing HENMT: COMMON NORMALS: normocephalic, atraumatic and Normal external nose present HEAD & SCALP: normocephalic and atraumatic FACE & SINUS: normal facial exam and face symmetric NOSE: Normal external nose present Eye: COMMON NORMALS: Equal, round and reactive pupils present and EOMs intact bilaterally PUPIL: Yes Equal, round and reactive pupils present Neck/C-Spine: GENERAL: Yes trachea midline Chest: CHEST: Yes Symmetrical chest wall rise Resp: EFFORT & INSPECTION: Yes symmetric chest movement and Yes tachypneic AUSCULTATION: diminished lung sounds Cardio: COMMON NORMALS: regular rate and regular rhythm RATE: regular rate RHYTHM: regular rhythm GI: COMMON NORMALS: Normal to inspection, nondistended, normoactive bowel sounds present Extremity: COMMON NORMALS: no pedal edema Neuro: MAYE COMA SCALE: document GCS findings [place] coma scale eye opening: Spontaneous Maye coma scale verbal response: Orientated [place] coma scale motor response: Obey commands Gardner coma scale total score: 15 SENSORY EXAM: Yes extremities (intact) Psych: COMMON NORMALS: speech normal SPEECH: Yes normal speech Skin: COMMON NORMALS: no rashes or lesions noted GENERAL SKIN EXAM: no rashes or lesions noted Course Vital Signs: Vital signs: Vital Signs Temperature 98.5 F 03/13/24 12:00 Pulse Rate 111 H 03/13/24 12:00 Respiratory Rate 18 03/13/24 11:39 Blood Pressure 154/74 03/13/24 12:00 Pulse Oximetry 93 03/13/24 12:00 Oxygen Delivery Me thod Room Air 03/13/24 12:00 Oxygen Flow Rate 1 03/13/24 06:41 MDM - SOB/Dyspnea Medical Decision Making Patient is on oxygen. Oxygen saturation is 96%. She is very hypertensive. She is given metoprolol for increased heart rate, and blood pressure. After metoprolol, blood pressure is still elevated. She's given 2 inches of nitroglycerin paste. She is still on oxygen. Still short of breath. Chest X-ray reveals vascular congestion without infiltrate. White blood cell count is 12. Hemoglobin is 11. BMP is not remarkable. Delta troponin is 10, which is concerning. BNP is elevated at 1800. She has given bumex here, with some dialysis beginning. She will be admitted for hypertensive urgency, CHF exacerbation, significantly elevated troponin in the setting of a normal creatinine. Swabs for respiratory viruses are negative. Hospitalist will see the patient. Lab Data 03/13/24 03:17 03/13/24 03:17 Labs/Radiology: Radiology Impressions Chest X-Ray 03/13/24 03:11 IMPRESSION: 1. Cardiomegaly with possible minimal central vascular congestion. Laboratory Results WBC 12.17 10^3/uL (3.29-11.43) H 03/13/24 03:17 RBC 4.08 10^6/uL (3.85-5.65) 03/13/24 03:17 Hgb 11.00 g/dL (11.27-16.99) L 03/13/24 03:17 Hct 35.8 % (36-47) L 03/13/24 03:17 MCV 87.7 fl (85-98) 03/13/24 03:17 MCH 27.0 pg (27-33) 03/13/24 03:17 MCHC 30.7 g/dL (30-55) 03/13/24 03:17 RDW 13.6 % (12.1-15.1) 03/13/24 03:17 Plt Count 359 10^3/cmm (157-399) 03/13/24 03:17 MPV 9.8 fL (7.4-10.4) 03/13/24 03:17 Neut % (Auto) 67.7 % 03/13/24 03:17 Lymph % (Auto) 26.0 % 03/13/24 03:17 [place] % (Auto) 4.6 % 03/13/24 03:17 Eos % (Auto) 0.7 % 03/13/24 03:17 Baso % (Auto) 0.3 % 03/13/24 03:17 Neut # (Auto) 8.24 10^3/uL (1.8-7.7) H 03/13/24 03:17 Lymph # (Auto) 3.2 10^3/uL (0.8-4.8) 03/13/24 03:17 [place] # (Auto) 0.6 10^3/uL (0.2-0.9) 03/13/24 03:17 Eos # (Auto) 0.1 10^3/uL (0.0-0.8) 03/13/24 03:17 Baso # (Auto) 0.0 10^3/uL (0.0-0.1) 03/13/24 03:17 Nucleated RBC % (auto) 0 % 03/13/24 03:17 Nucleated RBCs # 0.0 /100WBC 03/13/24 03:17 Sodium 140 mmol/L (136-145) 03/13/24 03:17 Potassium 3.8 mmol/L (3.5-5.1) 03/13/24 03:17 Chloride 102 mmol/L (98-107) 03/13/24 03:17 Carbon Dioxide 28 mmol/L (22-29) 03/13/24 03:17 Anion Gap 13.8 (5-19) 03/13/24 03:17 BUN 21 mg/dL (8-23) 03/13/24 03:17 Creatinine 0.8 mg/dL (0.5-0.9) 03/13/24 03:17 GFR Calculation Not Reportable 03/13/24 03:17 Glucose 215 mg/dL (65-115) H 03/13/24 03:17 Calculated Osmolality 299 mOsm/kg (285-295) H 03/13/24 03:17 Calcium 10.0 mg/dL (8.5-10.5) 03/13/24 03:17 Troponin T Baseline 51 ng/L (0-10) H 03/13/24 03:17 Troponin T 120 Minute 60.83 ng/L (0-10) H 03/13/24 05:21 Delta Troponin T 9.83 ABS# (0-10) 03/13/24 05:21 NT-Pro-B Natriuret Pep 1870 pg/mL (0-125) H 03/13/24 03:17 Procalcitonin 0.05 ng/mL (0-0.5) 03/13/24 05:21 TSH 7.21 uIU/mL (0.27-4.20) H 03/13/24 03:17 Urine Color Yellow (Yellow) 03/13/24 05:45 Urine Appearance Slightly cloudy (CLEAR) 03/13/24 05:45 Urine pH 5 (5-7) 03/13/24 05:45 Ur Specific [place] 1.020 (1.005-1.030) 03/13/24 05:45 Urine Protein Trace (Negative) 03/13/24 05:45 Urine Glucose (UA) 2+ (Normal) H 03/13/24 05:45 Urine Ketones Negative (Negative) 03/13/24 05:45 Urine Blood 2+ (Negative) H 03/13/24 05:45 Urine Nitrate Negative (Negative) 03/13/24 05:45 Urine Bilirubin Neg (Negative) 03/13/24 05:45 Urine Urobilinogen Norm mg/dL (Negative) 03/13/24 05:45 Ur Leukocyte Esterase 1+ (Negative) H 03/13/24 05:45 Urine RBC 5-10 /hpf (0-2) H 03/13/24 05:45 Urine WBC 10-15 /hpf (0-5) H 03/13/24 05:45 Ur Squamous Epith Cells 5-10 /hpf (0-5) H 03/13/24 05:45 Amorphous Sediment Not Reportable 03/13/24 05:45 Urine Bacteria 1+ /hpf (NONE) H 03/13/24 05:45 Coronavirus (PCR) Negative (Negative) 03/13/24 05:43 Influenza A (PCR) Negative (Negative) 03/13/24 05:43 Influenza Type B (PCR) Negative (Negative) 03/13/24 05:43 RSV (PCR) Negative (Negative) 03/13/24 05:43 All radiology interpretation(s) finalized by discharge Discharge Plan Discharge Patient Disposition: Admitted As Inpatient Admit Provider: eJy Hester Clinical Impression: Hypertensive urgency, Elevated troponin, CHF exacerbation Condition: Fair Coding Level of Care Code ED Sound Installation Worker for Nile Solomon
[2024-03-13 05:25] LABS: Troponin(5th) Baseline 51 ng/L (0-10)
[2024-03-13 05:30] LABS: NT Pro B Type Natriuretic Pept 1870 pg/mL (0-125)
[2024-03-13] MEDS: ondansetron 2 mg/ML SDV 2 mL 4 MG IVP (05:34)
[2024-03-13] MEDS: fentaNYL 50 mcg/mL INJ 2mL IVP (05:36)
[2024-03-13] MEDS: metoprolol tartrate 1 mg/1 mL SDV 5 mL 5 MG IVP (05:40)
[2024-03-13 05:47] LABS: Troponin 5 2HR 60.83 ng/L (0-10); Troponin 5 2HR Delta 9.83 ABS# (0-10)
[2024-03-13] MEDS: nitroglycerin 1 gm/inch oint Pkt 2 INCH TOPICAL (06:19)
[2024-03-13 06:28] LABS: Covid PCR NEGATIVE (Negative); Influenza A NEGATIVE (Negative); Influenza B NEGATIVE (Negative); Respiratory Syncytial Virus Ce NEGATIVE (Negative)
--- NOTE | 2024-03-13 06:29 | PM.HP ---
Providers/Chief Complaint Admitting Physician: Jey Hester MD Primary Care Provider: Carlo Jason MD Chief Complaint: SOB History of Present Illness Merly Guillen is a 73 year old female With a past medical history of type 2 diabetes mellitus, pacemaker, hypertension, CAD,Jehovah witness does not accept blood products, who presents [facility] for complaints of shortness of breath, and elevated blood pressure. Patient tells me that she woke up early this morning, feeling unwell, she felt short of breath, she had wheezing she checked her blood pressure, her systolic blood pressure was over 190, her pulse ox on the pulse oximeter was also reading the low. Denied any chest discomfort. No facial droop no slurring of words no focal weakness. Does have lower extremity edema but she tells me that she always has lower extremity edema. She is using her medications as prescribed. Review of Systems Const: Reports: fatigue and malaise Card: Denies: chest pain Resp: Reports: dyspnea Medications/Allergies Home Medications Medication Instructions Recorded Confirmed Last Taken Type multivitamin 1 tab PO QAM 11/07/19 03/10/24 12/30/19 History Articulating AFO ankle brace #1 ea 11/08/19 03/10/24 Unknown Rx Diabetic shoes with inserts #1 ea 11/08/19 03/10/24 Unknown Rx cholecalciferol (vitamin D3) 50 50 mcg PO DAILY 07/31/20 03/10/24 Unknown History mcg (2,000 unit) capsule Manley Balance Brace to the Left #1 ea 01/29/22 03/10/24 Unknown Rx flash glucose scanning reader #1 ea 11/21/22 03/10/24 Unknown Rx (FreeStyle River 2 Hepzibah) Accomdated custom diabetic shoe #1 ea 12/15/22 03/10/24 Unknown Rx with custom insoles cyanocobalamin (vitamin B-12) 1,000 mcg PO QAM 02/17/23 03/10/24 Unknown History 1,000 mcg tablet (Vitamin B-12) nitroglycerin 0.4 mg sublingual 0.4 mg sublingual Q5M PRN Chest 02/17/23 03/10/24 Unknown History tablet (Nitrostat) Pain omega-3 fatty acids 1,000 mg 1,000 mg PO BEDTIME 02/17/23 03/10/24 Unknown History capsule lisinopril 40 mg tablet 40 mg .Route DAILY #100 tabs 10/30/23 03/10/24 Unknown Rx isosorbide mononitrate 60 mg See Rx Instructions .Route 11/05/23 03/10/24 Unknown Rx tablet,extended release 24 hr .COMPLEX #100 tabs potassium chloride 10 mEq 10 meq PO QAM #100 caps 11/05/23 03/10/24 Unknown Rx capsule,extended release triamcinolone acetonide 0.5 % 1 applic topical BID #15 grams 01/01/24 03/10/24 Unknown Rx topical ointment ivermectin 3 mg tablet 15 mg (5 x 3 mg) PO DAILY 2 doses 01/03/24 03/10/24 Unknown Rx #10 tabs amlodipine 2.5 mg tablet 2.5 mg PO DAILY HTN 30 days #30 01/21/24 03/10/24 Unknown Rx tabs insulin glargine 100 unit/mL 58 unit (0.58 mL) SUBCUT QAM #52.2 02/10/24 03/10/24 Unknown Rx subcutaneous solution (Lantus mL U-100 Insulin) simvastatin 40 mg tablet 40 mg PO BEDTIME #100 tabs 02/10/24 03/10/24 Unknown Rx insulin lispro 100 unit/mL See Rx Instructions SUBCUT TID #45 03/04/24 03/10/24 Unknown Rx subcutaneous pen (Humalog KwikPen mL (U-100) Insulin) insulin syringe-needle U-100 1 mL #300 ea 03/04/24 03/10/24 Unknown Rx 31 gauge x 5/16 flash glucose sensor (FreeStyle #6 ea 03/08/24 03/10/24 Unknown Rx River 2 Sensor kit) pen needle, diabetic 32 gauge x #300 ea 03/08/24 03/10/24 Unknown Rx 5/32 (BD Anayeli 2nd Gen Pen Needle) Allergies Allergy/AdvReac Type Severity Reaction Status Date / Time torsemide Allergy Severe ALGY-Rash Verified 02/10/24 11:10 adhesive tape Allergy Unknown unknown Verified 02/10/24 11:10 empagliflozin Allergy Unknown Unknown Verified 03/10/24 10:20 [From Jardiance] morphine Allergy Unknown unknown Verified 02/10/24 11:10 naproxen [From Aleve] Allergy Unknown Unknown Verified 03/10/24 10:20 Penicillins Allergy Unknown ADR-Diarrhe Verified 02/10/24 11:10 a pregabalin [From Lyrica] Allergy Unknown unknown Verified 02/10/24 11:10 sitagliptin [From Januvia] Allergy Unknown unknown Verified 02/10/24 11:10 triamcinolone Allergy Unknown Unknown Verified 03/10/24 10:20 celecoxib [From Celebrex] Allergy stomach Verified 02/10/24 11:10 bleed latex Allergy ADR-Itching Verified 02/10/24 11:10 metformin Allergy ADR-Diarrhe Verified 02/10/24 11:10 a milk Allergy Unknown Verified 02/10/24 11:10 aspirin AdvReac eye bleeds Verified 02/10/24 11:10 furosemide AdvReac N/V, Verified 02/10/24 11:10 Diarrhea, LAWSON PFSH Acute PFSH: Medical History Inflammatory arthritis Drug eruption Pacemaker Hx of needle biopsy Varicose vein of leg Swelling of lower leg Abnormal cardiovascular stress test Atrial fibrillation Irregular heart beat Atypical chest pain Nonrheumatic aortic valve sclerosis Ventricular arrhythmia Diabetes Depression Arthritis Hypertension Neuropathy Surgical History Hx of breast biopsy Status post endovenous radiofrequency ablation (RFA) of saphenous vein History of appendectomy Hx of cholecystectomy H/O: hysterectomy Family History Father CAD (coronary artery disease) Grandmother Cancer Diabetes Mother Dementia Brother Diabetes Lung disease Family/Other Lung disease Other Hyperlipidemia Hypertension Denies family history of Clotting disorder Chronic kidney disease (CKD) Suicide Anesthesia complication Bleeding disorder Stroke Social History Smoking and tobacco/nicotine status: never used tobacco/nicotine Alcohol intake: never Substance/Drug Use: never Vitals/I&O/Wt Last Vital Signs Temp 98.2 F 03/13/24 03:06 Pulse 78 03/13/24 06:19 Resp 17 03/13/24 05:30 BP 175/105 03/13/24 06:19 Pulse Ox 93 03/13/24 05:30 O2 Del Method Nasal Cannula 03/13/24 05:30 O2 Flow Rate 1 03/13/24 05:30 Weight last 48 hrs Weight 81.647 kg Physical Exam Const: COMMON NORMALS: no acute distress and patient oriented x3 HENMT: COMMON NORMALS: normocephalic HEAD & SCALP: normocephalic Eye: COMMON NORMALS: Equal, round and reactive pupils present Neck/C-Spine: COMMON NORMALS: no JVD Resp: COMMON NORMALS: normal respiratory effort, No retractions, No use of accessory muscles and clear to auscultation bilaterally AUSCULTATION: crackles Cardio: COMMON NORMALS: no JVD, regular rate, regular rhythm, S1 normal heart sound present and S2 normal heart sound present RATE: regular rate RHYTHM: regular rhythm HEART SOUNDS: S1 normal heart sound present and S2 normal heart sound present GI: COMMON NORMALS: Normal to inspection, nondistended, normoactive bowel sounds present, Soft to palpation and non-tender PALPATION: Yes Soft to palpation Extremity: COMMON NORMALS: no calf tenderness NARRATIVE EXTREMITY EXAM: 1+ edema Neuro: COMMON NORMALS: patient oriented x3, CN's II-XII intact bilaterally and moves all extremities Psych: COMMON NORMALS: mental status grossly normal Data 03/13/24 03:17 03/13/24 03:17 A&P Assessment and plan (1) Hypertensive urgency: (2) Elevated troponin: (3) CHF exacerbation: Plan Hypertensive urgency ? Started on Cardene drip ? Monitor blood pressure closely ? Aim for goal of systolic blood pressure less than 160 diastolic less than 100 CHF exacerbation ? Cardiac echo ? Fluid restrictions at 1000 cc ? 1 dose of Bumex Elevated troponins ? No complaints of chest pain ? Type I versus type II NSTEMI ? Serial EKGs, serial troponins, telemetry monitoring ? Allergy to aspirin Type 2 diabetes mellitus, decrease Lantus to 20 units every morning, low-dose sliding scale Attestations Medical Necessity Statement*: Patient requires hospitalization, inpatient, greater than 2 midnights, for CHF exacerbation, hypertensive urgency, elevated troponins Diagnoses Hypertensive urgency I16.0 Elevated troponin R79.89 CHF exacerbation I50.9
[2024-03-13 06:35] LABS: Glucose Urine UA 2+ (Normal); Ketones Urine Negative (Negative); Protein Urine Trace (Negative); Urine Appearance Slightly Cloudy (CLEAR); Urine Color Yellow (Yellow); pH Urine 5 (5-7)
[2024-03-13 06:36] LABS: Add Urine Culture? Yes; Bacteria Urine 1+ /hpf; Bilirubin Urine Neg (Negative); Blood Urine 2+ (Negative); Leukocyte Esterase Urine 1+ (Negative); Nitrate Urine Negative (Negative); Urobilinogen Urine Norm (Negative)
[2024-03-13] MEDS: bumetanide 0.25 mg/mL SDV 4 mL 2 MG IVP (06:43)
--- NOTE | 2024-03-13 06:43 | ECG_ITS ---
[facility] Test Date: 2024-03-13 Pat Name: Merly Guillen Department: Room: EDIP Gender: Female [employer] Drawer: : 1950 Requested By: Phillip Liu Order Number: [id number] Theodore MD: Altaf Larsen M.D. Measurements Intervals [place] Rate: 77 P: 51 WA: 193 QRS: -67 QRSD: 159 T: 117 QT: 440 QTc: 501 Interpretive Statements ELECTRONIC VENTRICULAR PACEMAKER Compared to ECG 03/13/2024 05:14:16 No significant changes Electronically Signed On 03-13-2024 9:18:14 CDT by Altaf Larsen M.D. [email or web address]
[2024-03-13 07:38] LABS: Procalcitonin 0.05 ng/mL (0-0.5)
[2024-03-13 07:57] LABS: Glucose Point of Care 175 mg/dL (70-110)
[2024-03-13 08:02] LABS: Thyroid Stimulating Hormone 7.21 uIU/mL (0.27-4.20)
[2024-03-13] MEDS: insulin glargine 100 units/1 mL 20 UNIT SUBCUT (08:19)
--- NOTE | 2024-03-13 08:50 | PC.NURSE ---
Patient refused her lovenox shot stating I have never had that medicine and I bleed very easily and I take a baby aspirin every day and I currently have rectal bleeding, my blood does not need to be thinner . I then gave the patient the 20 units of Lantus that was ordered and the patient stated You need to call the doctor I am suppossed to get 58 units not 20 . I told the patient I would call the doctor.
[2024-03-13 09:21] LABS: Troponin 5 6HR 62.19 ng/L (0-10); Troponin 5 6HR Delta 11.19 ng/L (0-12)
[2024-03-13] MEDS: ciprofloxacin 500 mg Tablet PO ×2 (09:26→20:44)
[2024-03-13] MEDS: amlodipine 10 mg Tablet PO (09:26)
[2024-03-13] MEDS: isosorbide mononitrate ER 60 mg Tablet PO (09:26)
--- OUTSIDE RECORDS SUMMARY | 2024-03-13 10:20 | XMS_ITS ---
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 Role Phone Abiodun Jerez Primary Care Provider Allergies Allergen (clinical drug ingredient) Drug/Non Drug Allergy documented on EMR Reaction Allergy Type Onset Date Status pregabalin Lyrica Unknown Drug Allergy Active empagliflozin Jardiance Unknown Drug Allergy Act chanell Latex Latex Unknown Allergy Active metformin Metformin Unknown Drug Allergy Active Penicillin Unknown Drug Allergy Active pregabalin Pregabalin Unknown Drug Allergy Activ e Tape Unknown Allergy Active Results Component Value Reference Range Notes Diagnostic Colonoscopy-[id number] Reviewed date:12/14/2023 09:12:59 AM Interpretation: Performing Lab: Notes/Report: REASON FOR VISIT EVAL AND TREAT Medications Medication SIG (Take, Route, Frequency, Duration) Notes Start Date End Date Status Isosorbide Mononitrate ER 60 MG 1 tablet in the morning Orally Once a day Active Torsemide 20 MG as directed Orally Active Simvastatin 40 MG 1 tablet in the even ing Orally Once a day Active Lisinopril 40 MG 1 tablet Orally Once a day Active amLODIPine Besylate 5 MG 1 tablet Orally Once a day Active Potassium Citrate ER 10 MEQ (1080 MG) 1 tablet with meals Orally Three times a day Active Fish Oil 1000 MG 1 capsule Orally Thr ee times a day Active Turmeric Curcumin 5-1000 MG as directed Orally Active Vitamin B12 1000 MCG 1 tablet Orally Onc e a day Active Cholecalciferol 50 MCG (2000 UT) 1 capsule Orally Once a day Active HumaLOG 100 UNIT/ML as directed sliding scale Injection Active Lantus 100 UNIT/ML 58 Units Subcutaneous Active Social History Tobacco Use: Social History Observation Description Date Details (start date - stop date) Never Smoker NA - NA Tobacco Control (Standard) Question Answer Notes Tobacco use: Nonsmoker AUDIT-C (Standard) Question Answer Notes Did you have a drink containing alcohol in the p ast year? No Points 0 Interpretation Negative Problems Problem Type SNOMED Code ICD Code Onset Dates Problem Status W/U Status Risk Notes Problem [id number] Hematochezia (K92.1) Active confirmed Vital Signs Temperature 98 degrees Fahrenheit 11/12/2023 Blood pressure systolic 120 mm Hg 11/12/19 24 Blood pressure diastolic 64 mm Hg 024 Heart Rate 96 /min 11/12/2023 Height 70 in 11/12/2023 Weight 244.2 lbs 11/12/2023 BMI 35.04 kg/m2 11/12/2023 Oximetry 96 % 11/12/2023 Height-cm 177.8 cm 11/12/2023 Weight-kg 110.77 kg 11/12/2023 Encounters Encounter Location Date Provider Diagnosis [facility] [address] [place] [id number] 11/12/2023 Abiodun Jerez Hematochezia K92.1 Assessments Encounter Date Diagnosis (ICD Code) Assessment Notes Treat ment Notes Treatment Clinical Notes 11/12/2023 Hematochezia (ICD-10 - K92.1) --- to be completed at [facility]--to be completed at [facility] ---to be completed at [facility] ---to be completed at [facility] Plan Of Treatment Treatment Notes Assessment Notes Hematochezia --- to be completed at [facility]--to be completed at [facility] ---to be completed at [facility] ---to be completed at [facility] Next Appt Details Follow Up: prn, Reason: Progress Notes * HATTIEOCTAVIO REYES LDOB: [birth year] (73 yo F)Acc No.[id number]:11/12/2023 Progress Notes Patient:?OCTAVIO KUHN Provider:?Abiodun Jerez MD :1950???Age:73 Y???Sex:Female D ate:11/12/2023 Address:[address] [place], [place] [address], [address], [place], [id number] Check In:09:33 AM CSTCheck Heather 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 She sees Dr. Jason.? I did her last exam in 2012.? No other issues. * ROS:?General/Constitutional:?Patient denies?fatigue , fever , night sweats.?Hematology:?Patient denies?easy bruising , bleeding problems , recent transfusion.?Respiratory:?Patient denies?cough , shortness of breath , wheezing.?Cardiovascular:?Patient denies?chest pain , irregular heartbeat , swelling in hands/feet.?Gastrointestinal:?Patient denies?abdominal pain, bloating , constipation , diarrhea , heartburn , nausea , vomiting.?Admits?Blood in stool.?Genitourinary:?Patient denies?painful urination , blood in the urine , difficulty urinating.?ENT:?Patient denies?ear pain , nosebleed, runny nose,?sore throat.?Musculoskeletal:?Patient denies?arthritis\arthralgia , back pain , joint stiffness , muscle aches.?Skin:?Patient denies?skin lesion(s) , rash , acne.?Neurologic:?Patient denies?dizziness , fainting , headache , memory loss , seizures.?Psychiatric:?Patient denies?anxiety , depressed mood , difficulty sleeping , suicidal thoughts.? * Medical History:? * Surgical History:?cardiac pa cemeker 01/2023hysterectomy tubal ligation bladder surgery x 5 * Hospitalization/Major Diagno stic Procedure:?No Hospitalization History. * Family History:?Father: dece ased, hypertension, heart.?Mother: , hypertension.? * Social History:?Tobacco Use:?Tobacco Control (Standard)?Tobacco use:?Nonsmoker ???Drugs/Alcohol:?Drugs?Have you used drugs other than those for medical reasons in the past 12 months??No ???Drug/Alcohol:?AUDIT-C (Standard)?Did you have a drink containing alcohol in the past year??No ?Points?0 ?Interpretation?Negative * Medications:?TakingHumaLOG 1 00 UNIT/ML Solution as directed sliding scale Injection Lantus 100 UNIT/ML Solution 58 Units Subcutaneous Turmeric Curcumin 5-1000 MG Capsule as directed Orally Cholecalciferol 50 MCG (2000 UT) Capsule 1 capsule Orally Once a day Vitamin B12 1000 MCG Tablet Extended Release 1 tablet Orally Once a day Fish Oil 1000 MG Capsule 1 capsule Orally Three times a day Potassium Citrate ER 10 MEQ (1080 MG) Tablet Extended Release 1 tablet with meals Orally Three times a day Torsemide 20 MG Tablet as directed Orally Isosorbide Mononitrate ER 60 MG Tablet Extended Release 24 Hour 1 tablet in the morning Orally Once a day Simvastatin 40 MG Tablet 1 tablet in the evening Orally Once a day amLODIPine Besylate 5 MG Tablet 1 tablet Orally Once a day Lisinopril 40 MG Tablet 1 tablet Orally Once a day Medication List reviewed and reconciled with the patientTaking HumaLOG 100 UNIT/ML Solution as directed sliding scale Injection Taking Lantus 100 UNIT/ML Solution 58 Units Subcutaneous Taking Turmeric Curcumin 5-1000 MG Capsule as directed Orally Taking Cholecalciferol 50 MCG (2000 UT) Capsule 1 capsule Orally Once a day Taking Vitamin B12 1000 MCG Tablet Extended Release 1 tablet Orally Once a day Taking Fish Oil 1000 MG Capsule 1 capsule Orally Three times a day Taking Potassium Citrate ER 10 MEQ (1080 MG) Tablet Extended Release 1 tablet with meals Orally Three times a day Taking Torsemide 20 MG Tablet as directed Orally Taking Isosorbide Mononitrate ER 60 MG Tablet Extended Release 24 Hour 1 tablet in the morning Orally Once a day Taking Simvastatin 40 MG Tablet 1 tablet in the evening Orally Once a day Taking amLODIPine Besylate 5 MG Tablet 1 tablet Orally Once a day Taking Lisinopril 40 MG Tablet 1 tablet Orally Once a day Medication List reviewed and reconciled with the patient * Allergies:?MetforminPenicill inLyricaPregabalinJardianceLatexTapeno[Allergies Verified] Objective: * Vitals:?Ht: 70 in, Wt:244.2l bs, Wt-k.77 kg, BMI:35.04Index, Temp:98F, BP:120/64mm Hg, HR:96/min, Oxygen sat %:96%, O2 Source: RA, Ht-cm: 177.8 cm. * Examination: ???Examination: ?GENERAL APPEARANCE:?Awake/alert. No apparent distress.?HEART:?Regular rate and rhythm without rubs, murmurs, or gallops. PMI nondisplaced.?LUNGS:?Clear to auscultation without rales, rhonchi, wheezing, tachypnea or air hunger.?ABDOMEN:?Soft, nontender, nondistended with active bowel sounds X4. No HSM or masses.?PSYCHIATRIC:?Affect bright. Psychomotor status normal. Insight good.? Assessment: * Assessment: 1.?Hematochezia - K92.1 (Em clark)? Plan: * Treatment: Notes: --- to be completed at [facility] -x--to be completed at [facility] ---to be completed at [facility] ---to be completed at [facility] ?? * Procedure Codes:? * Follow Up:?prn Care Plan: * Problems:? * Billing Information: * Visit Code:? 79635 Office Visit, New Pt., Level 2. * Procedure Codes:? * Sign off status: Completed true * Provider:?Abiodun Jerez MD Yusef e:?11/12/2023 Generated for Sergo tena/Alfredo/eTransmitting on:?03/13/2024 10:20 AM CDT History and Physical Notes * Examination Category Sub-Category Detail Notes Examination GENERAL APPEARANCE: Awake/alert. No apparent distress HEART: Regular rate and rhy thm without rubs, murmurs, or gallops. PMI nondisplaced ABDOMEN: Soft, nontender, non distended with active bowel sounds X4. No HSM or masses PSYCHIATRIC: Affect bright. Psych omotor status normal. Insight good LUNGS: Clear to auscultatio n without rales, rhonchi, wheezing, tachypnea or air hunger
--- OUTSIDE RECORDS SUMMARY | 2024-03-13 10:20 | XMS_ITS | Patient Health Record ---
Author Name Unknown Organization [facility] Address [address] [place] [address] Care Team Providers Care Rn Coronary Care Unit Name Role Phone Abiodun Jerez Primary Care [...] Results Component Value Reference Range Notes Diagnostic Colonoscopy-[id number] Reviewed date:12/14/2023 09:12:59 AM Interpretation: Performing Lab: Notes/Report: Diagnostic Colonoscopy-[id number] Reviewed date:12/14/2023 02:50:58 PM Interpretation: Performing Lab: Notes/Report: Reason For Referral Reason SCREENING FOR MALIGN ANT NEOPLASM OF COLON Diagnosis 1 Encounter for screen ing for malignant neoplasm of colon (Z12.11) Referring Provider First Name Carlo Referring Provider Last Name Eren Referring Provider Speciality Family Med icine Ref[facility] Referred Provider Abiodun Jerez Referred Address [address] [place] [id number], Referral Priority Routine Medications Medication SIG (Take, Route, Frequency, Duration) Notes Start Date End Date Status Potassium Citrate ER 10 MEQ (1080 MG) 1 tablet with meals Orally Three times a day Active Fish Oil 1000 MG 1 capsule Orally Thr ee times a day Active Isosorbide Mononitrate ER 60 MG 1 tablet in the morning Orally Once a day Active Torsemide 20 MG as directed Orally Active Simvastatin 40 MG 1 tablet in the even ing Orally Once a day Active HumaLOG 100 UNIT/ML as directed sliding scale Injection Active Lisinopril 40 MG 1 tablet Orally Once a day Active amLODIPine Besylate 5 MG 1 tablet Orally Once a day Active Turmeric Curcumin 5-1000 MG as directed Orally Active Lantus 100 UNIT/ML 58 Units Subcutaneous Active Vitamin B12 1000 MCG 1 tablet Orally Onc e a day Active Cholecalciferol 50 MCG (1999 UT) 1 capsule Orally Once a day Active Social History Tobacco Use: Social History [...] Problem Status W/U Status Risk Notes Problem 574253193062223 Hematochezia (K92.1) Active confirmed Problem Diverticular disease of colon (889016224) Colon, diverticulosis (K57.30) Active confirmed Vital Signs Heart Rate 96 /min 11/12/2023 Temperature 98 degrees Fahrenheit 11/12/2023 Height-cm 177.8 cm 11/12/2023 Oximetry 96 % 11/12/2023 Blood pressure diastolic 64 mm Hg 11/12/2023 Weight-kg 110.77 kg 11/12/2023 Height 70 in 11/12/2023 Blood pressure systolic 120 mm Hg 11/12/2023 Weight 244.2 lbs 11/12/2023 BMI 35.04 kg/m2 11/12/2023 Encounters Encounter Location Date Provider Diagnosis [facility] [address] [place] [phone] 11/12/2023 Abiodun Jerez Hematochezia K92.1 [facility] [address] [place] [phone] 12/11/2023 Abiodun Jerez Hematochezia K92.1 and Colon, diverticulosis K57.30 Assessments Encounter Date Diagnosis (ICD Code) Assessment Notes Treat ment Notes Treatment Clinical Notes 11/12/2023 Hematochezia (ICD-10 - K92.1) --- to be completed at [facility] -x--to be completed at [facility] ---to be completed at [facility] ---to be completed at [facility] 12/11/2023 Hematochezia (ICD-10 - K92.1) 12/11/2023 Colon, diverticulosi s (ICD-10 - K57.30) 12/11/2023 Other see scanned document from [facility] in patients documents. Plan Of Treatment No Information Insurance Providers Payer Name Payer Address Payer Phone Subscriber Number Group Number Insured Name Patient Relationship to Insured Coverage Start Date Coverage End Date [facility] [employer] [address] [place] [address] [id number] OCTAVIO CANDELARIO Self - patient is the insured [place] Medicaid [address] [place] [address] [id number] OCTAVIO KUHN Self - patient is the insured Medical (General) History Medical History History ICD Code type II diabetes High Blood Pressure irregular heart beat thyroid problems Surgical History Surgery Date(Month/Year) cardiac pacemeker 01/2023 hysterectomy tubal ligation bladder surgery x 5
--- OUTSIDE RECORDS SUMMARY | 2024-03-13 10:20 | XMS_ITS ---
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 Name Role Phone Abiodun Jerez Primary Care Provider [phone] Results Component Value Reference Range Notes Diagnostic Colonoscopy-[id number] Reviewed date:12/14/2023 02:50:58 PM Interpretation: Performing Lab: Notes/Report: REASON FOR VISIT Colonoscopy Problems Problem Type SNOMED Code ICD Code Onset Dates Problem Status W/U Status Risk Notes Problem Diverticular disease of colon (509147945) Colon, diverticulosis (K57.30) Active confirmed Encounters Encounter Location Date Provider Diagnosis [facility] [address] [place] [address] 12/11/2023 Abiodun Jerez Hematochezia K92.1 a nd Colon, diverticulosis K57.30 Assessments Encounter Date Diagnosis (ICD Code) Assessment Notes Treat ment Notes Treatment Clinical Notes 12/11/2023 Hematochezia (ICD-10 - K92.1) 12/11/2023 Colon, diverticulosi s (ICD-10 - K57.30) 12/11/2023 Other see scanned document from [facility] in patients documents. Plan Of Treatment Treatment Notes Assessment Notes Other see scanned document from [facility] in patients documents. Progress Notes * HATTIE OCTAVIO LDOB: [birth year] (73 yo F)Acc No.[id number]:12/11/2023 Progress Notes Patient:?OCTAVIO KUHN Provider:?Abiodun Jerez MD :1950???Age:73 Y???Sex:Female D ate:12/11/2023 Address:[address], [address], [place], [id number] Subjective: * Chief Complaints: * ???Colonoscopy * HPI: ???::? see scanned document from [facility] in patients documents. * ROS:?see scanned document from [facility] in patients documents. * Medical History:? * Surgical History:? * Hospitalization/Major Diagno stic Procedure:? * Medications:? Objective: * Vitals:? * Examination: ???Examination: ???see scanned document from [facility] in patients documents. ??? Assessment: * Assessment: 1.?Hematochezia - K92.1 (Em eduardo)?2.?Colon, diverticulosis - K57.30? Plan: * Treatment: 2.?Colon, diverticulosis?Imaging: Diagnostic Colonoscopy-[id number] (Performed Date - 12/14/2023) 3.?Others? Notes: see scanned document from [facility] in patients documents.?? * Procedure Codes:?78738 DIAGN OSTIC COLONOSCOPY * Billing Information: * Visit Code:? * Procedure Codes:? 22338 DIAGNOSTIC COLONOSCOPY. Care Plan Details* * Sign off status: Completed true * Provider:?Abiodun Jerez MD Yusef e:?12/11/2023 Generated for Sergo tena/Alfredo/Dedricksmitting on:?03/13/2024 10:20 AM CDT
--- NOTE | 2024-03-13 10:43 | ECG_ITS ---
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 Measurements Intervals [place] Rate: 106 P: -85 OK: 153 QRS: -67 QRSD: 181 T: 106 QT: 409 QTc: 545 Interpretive Statements ELECTRONIC VENTRICULAR PACEMAKER Compared to ECG 02/17/2023 04:57:34 No significant changes Electronically Signed On 03-13-2024 9:19:05 CDT by Altaf Larsen M.D. [email or web address]
[2024-03-13 12:11] LABS: Glucose Point of Care 252 mg/dL (70-110)
[2024-03-13] MEDS: insulin lispro 100 unit/1 mL SUBCUT ×2 (12:23→17:31)
[2024-03-13] MEDS: carvedilol 3.125 mg Tablet PO (16:10)
[2024-03-13 18:16] LABS: Glucose Point of Care 217 mg/dL (70-110)
[2024-03-13] MEDS: atorvastatin 40 mg Tablet 20 MG PO (20:43)
[2024-03-13] MEDS: magnesium hydroxide 30 mL UDC 15 ML PO (20:43)
[2024-03-13 21:13] LABS: Glucose Point of Care 227 mg/dL (70-110)
--- NOTE | 2024-03-13 21:44 | P.PN_ITS ---
Subjective 2 Subjective: Denies chest pain. Blood pressure still elevated. No lower extremity edema. Reports she has been taken off lisinopril to assess whether it may be causing a drug reaction with a rash on both arms as well as around her knees. She declines Lovenox due to concern for bleeding. Understands risk of DVT. She is okay with trying SCDs. Accepts no blood products. Vitals/I&O/Wt Last Vital Signs Temp 98.3 F 03/13/24 20:00 Pulse 81 03/13/24 21:42 Resp 16 03/13/24 20:00 BP 113/56 03/13/24 20:00 Pulse Ox 91 03/13/24 20:00 O2 Del Method Room Air 03/13/24 20:00 O2 Flow Rate 1 03/13/24 06:41 03/13/24 03/13/24 03/13/24 06:59 14:59 22:59 Intake Total 120 / 120 120 / 240 Balance 120 / 120 120 / 240 Weight last 48 hrs Weight 105.687 kg Weight 81.647 kg Physical Exam 2 Narrative: Awake, alert, reclined in bed. Accompanied by a friend. Const: COMMON NORMALS: patient oriented x3 and alert GENERAL APPEARANCE: c ooperative ORIENTATION/CONSCIOUSNESS: Yes awake HENMT: COMMON NORMALS: oropharynx normal Neck/C-Spine: COMMON NORMALS: no JVD Resp: COMMON NORMALS: normal respiratory effort and clear to auscultation bilaterally AUSCULTATION: clear to auscultation bilaterally Cardio: COMMON NORMALS: no JVD, regular rhythm, S1 normal heart sound present, S2 normal heart sound present and No murmurs present (Cardio) RHYTHM: regular rhythm HEART SOUNDS: S1 normal heart sound present and S2 normal heart sound present GI: COMMON NORMALS: Normal to inspection, nondistended, normoactive bowel sounds present, Soft to palpation and non-tender PALPATION: Yes Soft to palpation Extremity: COMMON NORMALS: no joint enlargement and no pedal edema Neuro: COMMON NORMALS: patient oriented x3 and moves all extremities S ENSORIUM/ORIENTATION: Yes alert Skin: NARRATIVE SKIN EXAM: Erythematous confluent rash on bilateral arms and several patches around the kneecaps bilaterally. Data 03/13/24 03:17 03/13/24 03:17 A&P Assessment and plan (1) Hypertensive urgency: (2) Elevated troponin: (3) CHF exacerbation: Plan Hypertensive urgency: States she has been taken off lisinopril in case it is contributing to her rash. Started carvedilol 3.125. Continue amlodipine, Imdur. ? Started on Cardene drip ? Monitor blood pressure closely ? Aim for goal of systolic blood pressure less than 160 diastolic less than 100 UTI: On review UA suggestive of UTI, added ciprofloxacin. Follow-up urine culture. Hypothyroidism: Elevated TSH of 7.4, requested free T4. Reviewed pathology of prior thyroid nodule biopsy, benign findings. CHF exacerbation: Appears possibly compensated at the moment. Continue to optimize blood pressure control. Hold off additional diuretics. ? Cardiac echo ? Fluid restrictions at 1000 cc Rash of bilateral arms, around kneecaps: Has been seen by dermatology and states has had skin biopsy. Unknown etiology, possibly autoimmune condition. Has been on steroid started by rheumatology. Is supposed to finish out 20 mg daily course after 1 more dose and contact rheumatology to see if okay to discontinue if significant improvement. Rash is still in place. She did have some improvement in burning in her hands. Continue prednisone for now. 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 Elevated troponins: She has declined Lovenox. Discontinued. Echocardiogram is requested. Follow-up. ? No complaints of chest pain ? Type I versus type II NSTEMI ? Serial EKGs, serial troponins, telemetry monitoring ? Allergy to aspirin Type 2 diabetes mellitus, reviewed POC glucose, elevated. She normally takes 58 units of Lantus. Discussed with her we will continue to 35 units for now and increase depending on glucose. Continue consistent carbohydrate diet. Confucianism, does not accept blood products. Attestations 2 Medical Necessity Statement*: Continue admission for assessment management of uncontrolled hypertension complicated by CHF exacerbation, UTI, further workup of possible hypothyroidism, with possible drug reaction or autoimmune condition with rash of bilateral arms, kneecaps. Diagnoses Hypertensive urgency I16.0 Elevated troponin R79.89 CHF exacerbation I50.9
[2024-03-13] MEDS: predniSONE 20 mg Tablet PO (22:32)
[2024-03-14] VITALS (7 sets, daily range): BP systolic 107–147; BP diastolic 52–75; PULSE 83–113; RESP 16–18; TEMP 36.7–36.8; O2SAT 93–94
[2024-03-14 06:21] LABS: Basophils % 0.4 %; Eosinophils % 0.1 %; Hematocrit 33.5 % (36-47); Lymphocytes # 1.3 10^3/uL (0.8-4.8); Mean Corpuscular HGB Conc 30.4 g/dL (30-55); Mean Corpuscular Hemoglobin 26.9 pg (27-33); Mean Corpuscular Volume 88.4 fl (85-98); Mean Platelet Volume 9.4 fL (7.4-10.4); Monocytes # 0.3 10^3/uL (0.2-0.9); Monocytes % 2.6 %; Neutrophils # 8.89 10^3/uL (1.8-7.7); Neutrophils % 84.3 %; Nucleated Red Blood Cells % 0 %; Platelet Count 339 10^3/cmm (157-399); Red Blood Count 3.79 10^6/uL (3.85-5.65); Red Cell Distribution Width 13.7 % (12.1-15.1); White Blood Count 10.53 10^3/uL (3.29-11.43)
[2024-03-14 06:25] LABS: Glucose Point of Care 280 mg/dL (70-110)
[2024-03-14] MEDS: insulin glargine 100 units/1 mL 35 UNIT SUBCUT (06:30)
[2024-03-14 06:37] LABS: Anion Gap 13.8 (5-19); Blood Urea Nitrogen 18 mg/dL (8-23); Calcium 9.7 mg/dL (8.5-10.5); Carbon Dioxide 29 mmol/L (22-29); Chloride 99 mmol/L (98-107); Creatinine Clr Calc Pharmacy 85.6705; Glucose 285 mg/dL (65-115); Magnesium 1.8 mg/dL (1.7-2.3); Osmolality Calculated 296 mOsm/kg (285-295); Potassium 4.8 mmol/L (3.5-5.1); Sodium 137 mmol/L (136-145)
[2024-03-14] MEDS: insulin lispro 100 unit/1 mL SUBCUT ×2 (08:05→12:14)
[2024-03-14] MEDS: carvedilol 3.125 mg Tablet PO (08:06)
[2024-03-14] MEDS: ciprofloxacin 500 mg Tablet PO (08:06)
[2024-03-14] MEDS: isosorbide mononitrate ER 60 mg Tablet PO (08:06)
[2024-03-14] MEDS: amlodipine 10 mg Tablet PO (08:06)
[2024-03-14] MEDS: predniSONE 20 mg Tablet PO (08:06)
[2024-03-14] MEDS: carvedilol 6.25 mg Tablet PO (09:04)
--- NOTE | 2024-03-14 09:30 | USCV_ITS ---
Merly Guillen Age: 73 Gender: F : 1950 Exam Date: 03/14/2024 10:18 Ordering Phys: Jey Hester MD Technologist: CT Exam Location: [facility] [place]_ Indication: sob BP: / HR: 77 Rhythm: Sinus Technical Quality: Technically difficult study MEASUREMENTS (Male / Female) Normal Values 2D ECHO LVOT Diameter 2.0 cm LV Ejection Fraction MOD 4C 51.8 % LV Ejection Fraction MOD 2C 43.8 % LV Ejection Fraction 2C AL 48.1 % LA Diameter 4.3 cm RA Systolic Volume 4C AL 82.1 ml RA Systolic Volume 4C MOD 77.3 ml LA Sys Volume AL 68.8 cm cubed LA Sys Volume Index AL 29.4 cm cubed/m squared Aorta at Sinotubular Diameter 2.7 cm IVC Diameter 1.9 cm M-MODE LA Ao Ratio MM 2.5 AV Cusp Separation MM 1.9 cm DOPPLER AV Peak Velocity 207.0 cm/s LVOT Peak Velocity 107.0 cm/s AV Area Cont Eq vti 2.1 cm squared AV Area Cont Eq pk 1.7 cm squared MV Peak Velocity 145.0 cm/s MV Area PHT 4.9 cm squared Mitral E to A Ratio 0.7 TR Peak Velocity 218.0 cm/s TR Peak Gradient 19.0 mmHg TV Peak E Velocity 83.0 cm/s Right Atrial Pressure 3.0 mmHg Pulmonary Artery Systolic Pressu 22.0 mmHg PV Peak Velocity 135.0 cm/s FINDINGS Left Ventricle Technically limited quality echocardiogram because of poor ultrasonic windows. Grossly LV systolic function is borderline normal. Grade 1 diastolic dysfunction. Right Ventricle Normal in size and function Right Atrium Normal in size Left Atrium Normal in size Mitral Valve Structurally normal mitral valve. Mild to moderate mitral regurgitation. Aortic Valve Aortic valve is thickened. Mild aortic stenosis with aortic valve area of 2.1 cm squared and mean gradient of 10 mmHg. Tricuspid Valve Trace tricuspid regurgitation. Insufficient TR jet to calculate RVSP. Pulmonic Valve Not well-visualized. Pericardium Normal Aorta Normal in size IVC Not well visualized CONCLUSIONS Technically limited quality echocardiogram because of poor ultrasonic windows. Grossly LV systolic function is borderline normal. Grade 1 diastolic dysfunction. Mild to moderate mitral regurgitation. Mild aortic stenosis. Trace tricuspid regurgitation Accurate comparison with prior echocardiogram is not possible because of poor quality images on current study Altaf Larsen MD (Electronically Signed) Final Date: 14 March 2024 15:00 S
[2024-03-14 11:24] LABS: Glucose Point of Care 343 mg/dL (70-110)
[2024-03-14] MEDS: sennosides-docusate Tablet 2 TAB PO (11:44)
--- NOTE | 2024-03-14 14:33 | PM.DCS ---
Discharge Providers Date of Admission: 03/13/24 06:13 Date of Discharge: March 14, 2024 Attending Provider at Admission: Jey Hester MD Attending Provider at Discharge: Tay Macias Primary Care Provider: Carlo Jason MD Diagnoses at Discharge Discharge Diagnosis (1) Hypertensive urgency: Status: Acute (2) Elevated troponin: Status: Acute (3) CHF exacerbation: Status: Acute Reason for Visit Reason for Visit: SOB Brief History: Merly Guillen is a 73 year old female With a past medical history of type 2 diabetes mellitus, pacemaker, hypertension, CAD,Jehovah witness does not accept blood products, who presents [facility] for complaints of shortness of breath, and elevated blood pressure. Patient tells me that she woke up early this morning, feeling unwell, she felt short of breath, she had wheezing she checked her blood pressure, her systolic blood pressure was over 190, her pulse ox on the pulse oximeter was also reading the low. Denied any chest discomfort. No facial droop no slurring of words no focal weakness. Does have lower extremity edema but she tells me that she always has lower extremity edema. She is using her medications as prescribed. Hospital Course Hospital Course She received a dose of diuretic in ER, antihypertensives were adjusted, she had recently discontinued lisinopril due to concern of whether she was having drug-related reaction with a rash on her arms and her kneecaps. Antihypertensive regimen escalated while in hospital due to uncontrolled hypertension, likely contributing to her episode of chest pain. Troponin series were completed which showed mild elevation. Echocardiogram was obtained as well which showed normal ejection fraction, grade 1 diastolic dysfunction, mild to moderate mitral regurgitation, mild aortic stenosis, trace TVR. With controlled hypertension has remained free of chest pain, and CHF remained compensated. Ciprofloxacin was added for treatment of suspected urinary tract infection based on urinalysis. Urine culture is requested and pending. Please follow-up. She is asked to continue close monitoring of her blood pressure. With risk factors of coronary disease we discussed with her recommendation for additional assessment by stress testing to exclude significant coronary disease responsible for her episode of chest pain. She declines stresses at current time, would like to first discuss with her director of operations given she did not do well with a stress test in the past which affected her circulation in her legs. She is also going to follow-up regarding the valvular heart disease. She is otherwise doing well, no additional symptoms, feeling much better, feels ready to return home. She knows to seek medical attention in case of any worsening or new concerning symptoms. She was incidentally noted to have elevated TSH on admission labs, up to 7.21. Free T4 was checked and was normal 1.13. Please reassess thyroid function. She is also going to continue follow-up for further assessment of the rash on bilateral arms, around the kneecaps. Physical Exam Narrative: Awake, alert, sittig at bedside. Accompanied by a friend. Const: COMMON NORMALS: patient oriented x3 and alert GENERAL APPEARANCE: cooperative ORIENTATION/CONSCIOUSNESS: Yes awake HENMT: COMMON NORMALS: oropharynx normal Neck/C-Spine: COMMON NORMALS: no JVD Resp: COMMON NORMALS: normal respiratory effort and clear to auscultation bilaterally AUSCULTATION: clear to auscultation bilaterally Cardio: COMMON NORMALS: no JVD, regular rhythm, S1 normal heart sound present, S2 normal heart sound present and No murmurs present (Cardio) RHYTHM: regular rhythm HEART SOUNDS: S1 normal heart sound present and S2 normal heart sound present GI: COMMON NORMALS: Normal to inspection, nondistended, normoactive bowel sounds present, Soft to palpation and non-tender PALPATION: Yes Soft to palpation Extremity: COMMON NORMALS: no joint enlargement and no pedal edema OTHER: No pitting edema. Neuro: COMMON NORMALS: patient oriented x3 and moves all extremities SENSORIUM/ORIENTATION: Yes alert Skin: NARRATIVE SKIN EXAM: Erythematous confluent rash on bilateral arms and several patches around the kneecaps bilaterally. Discharge Data Studies Completed and Pending Completed Studies During Hospitalization Category Date Time Status XR chest 1V portable [id number] Stat Exams 03/13/24 03:11 Completed Pending at discharge Category Date Time Status Basic Metabolic Panel AM LABS Lab 03/15/24 04:00 Ordered Basic Metabolic Panel AM LABS Lab 03/16/24 04:00 Ordered Complete Blood Count w/Auto AM LABS Lab 03/15/24 04:00 Ordered Complete Blood Count w/Auto AM LABS Lab 03/16/24 04:00 Ordered T4, Thyroxine, Total Routine Lab 03/13/24 21:45 Received Urine Culture Stat Lab 03/13/24 05:45 Results CV. echo complete* [id number] Routine Ultrasound 03/14/24 09:30 Taken Radiology Impressions Chest X-Ray 03/13/24 03:11 IMPRESSION: 1. Cardiomegaly with possible minimal central vascular congestion. Laboratory Results WBC 10.53 10^3/uL (3.29-11.43) 03/14/24 06:01 RBC 3.79 10^6/uL (3.85-5.65) L 03/14/24 06:01 Hgb 10.20 g/dL (11.27-16.99) L 03/14/24 06:01 Hct 33.5 % (36-47) L 03/14/24 06:01 MCV 88.4 fl (85-98) 03/14/24 06:01 MCH 26.9 pg (27-33) L 03/14/24 06:01 MCHC 30.4 g/dL (30-55) 03/14/24 06:01 RDW 13.7 % (12.1-15.1) 03/14/24 06:01 Plt Count 339 10^3/cmm (157-399) 03/14/24 06:01 MPV 9.4 fL (7.4-10.4) 03/14/24 06:01 Neut % (Auto) 84.3 % 03/14/24 06:01 Lymph % (Auto) 12.0 % 03/14/24 06:01 [place] % (Auto) 2.6 % 03/14/24 06:01 Eos % (Auto) 0.1 % 03/14/24 06:01 Baso % (Auto) 0.4 % 03/14/24 06:01 Neut # (Auto) 8.89 10^3/uL (1.8-7.7) H 03/14/24 06:01 Lymph # (Auto) 1.3 10^3/uL (0.8-4.8) 03/14/24 06:01 [place] # (Auto) 0.3 10^3/uL (0.2-0.9) 03/14/24 06:01 Eos # (Auto) 0.0 10^3/uL (0.0-0.8) 03/14/24 06:01 Baso # (Auto) 0.0 10^3/uL (0.0-0.1) 03/14/24 06:01 Nucleated RBC % (auto) 0 % 03/14/24 06:01 Nucleated RBCs # 0.0 /100WBC 03/14/24 06:01 Sodium 137 mmol/L (136-145) 03/14/24 06:01 Potassium 4.8 mmol/L (3.5-5.1) 03/14/24 06:01 Chloride 99 mmol/L (98-107) 03/14/24 06:01 Carbon Dioxide 29 mmol/L (22-29) 03/14/24 06:01 Anion Gap 13.8 (5-19) 03/14/24 06:01 BUN 18 mg/dL (8-23) 03/14/24 06:01 Creatinine 0.8 mg/dL (0.5-0.9) 03/14/24 06:01 GFR Calculation Not Reportable 03/14/24 06:01 Glucose 285 mg/dL (65-115) H 03/14/24 06:01 POC Glucose 343 mg/dL (70-110) H 03/14/24 11:21 Calculated Osmolality 296 mOsm/kg (285-295) H 03/14/24 06:01 Calcium 9.7 mg/dL (8.5-10.5) 03/14/24 06:01 Magnesium 1.8 mg/dL (1.7-2.3) 03/14/24 06:01 Troponin T Baseline 51 ng/L (0-10) H 03/13/24 03:17 Troponin T 120 Minute 60.83 ng/L (0-10) H 03/13/24 05:21 Delta Troponin T 9.83 ABS# (0-10) 03/13/24 05:21 Troponin T Hi Sens 6Hr 62.19 ng/L (0-10) H 03/13/24 08:55 Troponin T Hi Sens 6Hr Delta 11.19 ng/L (0-12) 03/13/24 08:55 NT-Pro-B Natriuret Pep 1870 pg/mL (0-125) H 03/13/24 03:17 Procalcitonin 0.05 ng/mL (0-0.5) 03/13/24 05:21 TSH 7.21 uIU/mL (0.27-4.20) H 03/13/24 03:17 Urine Color Yellow (Yellow) 03/13/24 05:45 Urine Appearance Slightly cloudy (CLEAR) 03/13/24 05:45 Urine pH 5 (5-7) 03/13/24 05:45 Ur Specific [place] 1.020 (1.005-1.030) 03/13/24 05:45 Urine Protein Trace (Negative) 03/13/24 05:45 Urine Glucose (UA) 2+ (Normal) H 03/13/24 05:45 Urine Ketones Negative (Negative) 03/13/24 05:45 Urine Blood 2+ (Negative) H 03/13/24 05:45 Urine Nitrate Negative (Negative) 03/13/24 05:45 Urine Bilirubin Neg (Negative) 03/13/24 05:45 Urine Urobilinogen Norm mg/dL (Negative) 03/13/24 05:45 Ur Leukocyte Esterase 1+ (Negative) H 03/13/24 05:45 Urine RBC 5-10 /hpf (0-2) H 03/13/24 05:45 Urine WBC 10-15 /hpf (0-5) H 03/13/24 05:45 Ur Squamous Epith Cells 5-10 /hpf (0-5) H 03/13/24 05:45 Amorphous Sediment Not Reportable 03/13/24 05:45 Urine Bacteria 1+ /hpf (NONE) H 03/13/24 05:45 Coronavirus (PCR) Negative (Negative) 03/13/24 05:43 Influenza A (PCR) Negative (Negative) 03/13/24 05:43 Influenza Type B (PCR) Negative (Negative) 03/13/24 05:43 RSV (PCR) Negative (Negative) 03/13/24 05:43 Vitals Last Vital Signs Temp 98.3 F 03/14/24 12:00 Pulse 113 H 03/14/24 12:00 Resp 18 03/14/24 12:00 BP 107/52 03/14/24 12:00 Pulse Ox 94 03/14/24 12:00 O2 Del Method Room Air 03/14/24 12:00 O2 Flow Rate 1 03/13/24 06:41 Discharge Plan Discharge Patient Disposition: Home Condition: Stable Prescriptions: New amlodipine 5 mg tablet 5 mg PO DAILY Qty: 90 0RF carvedilol 6.25 mg Tablet 6.25 mg PO BID Qty: 180 0RF ciprofloxacin HCl 500 mg Tablet 500 mg PO BID@0900,2100 Qty: 10 0RF Continued (DME) Diabetic shoes with inserts Qty: 1 0RF Rx Instructions: As directed [place] Articulating AFO ankle brace Qty: 1 0RF Rx Instructions: As directed cholecalciferol (vitamin D3) 50 mcg (2,000 unit) capsule 50 mcg PO DAILY multivitamin Tablet 1 tab PO QAM insulin glargine [Lantus U-100 Insulin] 100 unit/mL solution 58 unit SUBCUT QAM Qty: 52.2 1RF simvastatin 40 mg tablet 40 mg PO BEDTIME Qty: 100 1RF Rx Instructions: order# [id number] ([facility] Manley Balance Brace to the Left See Rx Instructions .Route .MEDSUPPLY Qty: 1 0RF Rx Instructions: As directed by Charity ([facility]) FreeStyle [place] 2 [place] [facility] See Rx Instructions .Route Qty: 1 0RF Rx Instructions: As directed ([facility] Accomdated custom diabetic shoe with custom insoles See Rx Instructions .Route .MEDSUPPLY Qty: 1 0RF Rx Instructions: As directed isosorbide mononitrate 60 mg tablet extended release 24 hr See Rx Instructions .ROUTE .COMPLEX Qty: 100 3RF Dose Instruction: TAKE 1 TABLET BY MOUTH DAILY Rx Instructions: TAKE 1 TABLET BY MOUTH DAILY insulin lispro [Humalog KwikPen Insulin] 100 unit/mL insulin pen See Rx Instructions SUBCUT TID Qty: 45 3RF Rx Instructions: Sliding scale three times a day ([facility]) insulin syringe-needle U-100 1 mL 31 gauge x 5/16 syringe See Rx Instructions .ROUTE .COMPLEX Qty: 300 0RF Dose Instruction: USE DIRECTED Rx Instructions: USE DIRECTED ([facility]) FreeStyle [place] 2 Sensor Kit See Rx Instructions .ROUTE .COMPLEX Qty: 6 0RF Dose Instruction: USE TO TEST BLOOD SUGAR Rx Instructions: USE TO TEST BLOOD SUGAR ([facility]) pen needle, diabetic [BD Anayeli 2nd Gen Pen Needle] 32 gauge x 5/32 needle See Rx Instructions .ROUTE .COMPLEX Qty: 300 0RF Dose Instruction: USE DIRECTED Rx Instructions: USE DIRECTED nitroglycerin [Nitrostat] 0.4 mg Tablet, Sublingual 0.4 mg SUBLINGUAL Q5M PRN (Reason: Chest Pain) Rx Instructions: do not exceed 3 doses per episode Discontinued amlodipine 2.5 mg tablet 2.5 mg PO DAILY 30 Days Qty: 30 5RF Discharge Orders: Discharge Order (Routine); Ordered 03/14/24 Ordered By: Tay Macias Referrals: CARDIOLOGY [Provider Group] (As per apointment - discuss about performing a stress test We have notified your physician's clinic of the need for a follow-up appointment to be scheduled. If you have not heard from them within the next 2 business days, please call them directly. ) Carlo Jason MD [Primary Care Provider] - 03/21/24 10:15 am Discharge Diet: Diabetic Discharge Activity: Increase activity as tolerated Patient Instructions: Ciprofloxacin (By mouth), Amlodipine (By mouth), Carvedilol (By mouth), Heart Failure (GEN), CHF Stoplight Activity Restrictions/Additional Instructions: Please continue to monitor blood pressures 3 times daily, write down values to bring to your appointment, please continue to target blood pressures 120/80. Please follow-up with your primary provider to help you optimize blood pressure control. Please also follow-up with cardiology and revisit the discussion regarding obtaining a stress test after episode of chest pain. Complete antibiotic course for urinary tract infection. Please follow-up with your primary provider to reassess for resolution. Follow-up with them the final results of urine culture. Please seek medical attention in case of any worsening or new concerning symptoms. Please follow up wit your pimary provider regarding elevated TSH, possible hypothyroidism. Free T4 was requested. Continue follow-up with rheumatology and dermatology with regards to skin rash. Discharge Attestations Time Spent in Discharge Care*: greater than 30 min Quality Metrics Clinical Quality Measures [ No reported AMI, CVA or VTE this stay] Coding Level of Care Code 05336 Total time (in minutes) for Discharge: 45 Diagnoses Hypertensive urgency I16.0 Elevated troponin R79.89 CHF exacerbation I50.9
[2024-03-14 15:09] LABS: Free T4 Free Thyroxine 1.13 ng/dL (0.82-1.77)
== END 2024-03-14 15:50 | disposition home or self-care (01) | DRG 305 ==
LOC: ER 05:35 → MEDSURG 08:44
PROVIDERS: Admitting Provider Family Medicine; Emergency Provider Emergency Medicine; PCP Family Medicine; Visit Provider Internal Medicine
DX: I16.0 Hypertensive urgency (principal); N39.0 Urinary tract infection, site not specified; E11.9 Type 2 diabetes mellitus without complications; I10 Essential (primary) hypertension; I25.10 Atherosclerotic heart disease of native coronary artery without angina pectoris; I48.91 Unspecified atrial fibrillation; E03.9 Hypothyroidism, unspecified; I08.0 Rheumatic disorders of both mitral and aortic valves; I50.9 Heart failure, unspecified; Z95.0 Presence of cardiac pacemaker; Z79.899 Other long term (current) drug therapy; Z79.4 Long term (current) use of insulin; Z88.6 Allergy status to analgesic agent; Z88.0 Allergy status to penicillin; Z88.8 Allergy status to other drugs, medicaments and biological substances; Z90.49 Acquired absence of other specified parts of digestive tract; Z90.710 Acquired absence of both cervix and uterus; Z82.49 Family history of ischemic heart disease and other diseases of the circulatory system; T46.4X5A Adverse effect of angiotensin-converting-enzyme inhibitors, initial encounter; L27.0 Generalized skin eruption due to drugs and medicaments taken internally
CPT/HCPCS: 0241U; 36415; 36416; 71045; 80048; 80076; 81001; 82565; 82962; 83520; 83735; 83880; 84145; 84439; 84443; 84484; 85025; 86200; 86480; 86704; 86803; 87086; 87340; 93005; 93306; 94640; 94664; 96372; 96374; 96375; 99204; 99285; J1815; J2405; J3010; J3490; J7512

== ENCOUNTER → 2024-03-16 14:54 | Outpatient (BNVA) | payer MEDICARE, MEDICAID, SELFPAY | PROVIDERS: PCP Family Medicine; Visit Provider Dermatology | DX: L27.0 Generalized skin eruption due to drugs and medicaments taken internally (principal) | CPT/HCPCS: 99214 ==

== ENCOUNTER → 2024-03-18 09:00 | Outpatient (BNVA) | payer MEDICARE, MEDICAID, SELFPAY | PROVIDERS: PCP Family Medicine; Visit Provider Internal Medicine Cardiovascular Disease | DX: I48.19 Other persistent atrial fibrillation (principal); I11.0 Hypertensive heart disease with heart failure; I50.9 Heart failure, unspecified; Z95.0 Presence of cardiac pacemaker | CPT/HCPCS: 99213 ==

== ENCOUNTER → 2024-04-21 13:28 | Outpatient (BNVA) | payer MEDICARE, MEDICAID, SELFPAY | PROVIDERS: PCP Family Medicine; Visit Provider Dermatology | DX: L27.0 Generalized skin eruption due to drugs and medicaments taken internally (principal) | CPT/HCPCS: 99214 ==

== ENCOUNTER → 2024-04-25 10:43 | Outpatient (BNVA) | payer MEDICARE, MEDICAID, SELFPAY | PROVIDERS: PCP Family Medicine; Visit Provider Internal Medicine Rheumatology | DX: L27.0 Generalized skin eruption due to drugs and medicaments taken internally (principal); M19.90 Unspecified osteoarthritis, unspecified site | CPT/HCPCS: 99214 ==

== ENCOUNTER 2024-04-26 22:37 | Inpatient (IN) | payer MEDICARE, MEDICAID, SELFPAY ==
[2024-04-26 22:38] VITALS: BP 181/76; PULSE 89; RESP 22; TEMP 36.7; O2SAT 99; BMI 34.4
--- NOTE | 2024-04-26 22:41 | ECG_ITS ---
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 Measurements Intervals [place] Rate: 89 P: 57 OK: 188 QRS: -70 QRSD: 179 T: 98 QT: 433 QTc: 528 Interpretive Statements ELECTRONIC VENTRICULAR PACEMAKER ABNORMAL RHYTHM ECG Compared to ECG 03/13/2024 07:01:05 No significant changes Electronically Signed On 04-27-2024 16:57:10 CDT by Quentin Reyes M.D. [email or web address]
--- NOTE | 2024-04-26 22:41 | XRR_ITS ---
PROCEDURE INFORMATION: Exam: XR Chest Exam date and time: 04/26/2024 11:25 PM Age: 73 years old Clinical indication: Shortness of breath; Prior surgery; Surgery date: 6+ months; Surgery type: Pacemaker TECHNIQUE: Imaging protocol: Radiologic exam of the chest. Views: 1 view. COMPARISON: CR (CHEST, ) 03/13/2024 3:12 AM FINDINGS: Tubes, catheters and devices: Left chest wall dual lead pacemaker with the leads in the right atrium and right ventricle. Lungs: Central pulmonary vascular congestion. Mild pulmonary edema. Pleural spaces: Unremarkable. No pleural effusion. No pneumothorax. Heart/Mediastinum: Mild cardiomegaly. Vasculature: Aortic calcifications. Bones/joints: Unremarkable. XR/XR chest 1V portable [id number] IMPRESSION: Mild pulmonary edema.
--- NOTE | 2024-04-26 22:45 | ED_ITS ---
HPI - SOB/Dyspnea 2 General: Chief Complaint: ER Hold Stated Complaint: SOB Time Seen by Provider: 04/26/24 22:38 History of Present Illness: HPI Narrative: 73-year-old female with a history of hyp ertension and diastolic congestive heart failure who presents to the emergency room with respiratory failure. She become very acutely short of breath earlier this evening. EMS reports her O2 saturations were in the 60s when they arrived. She arrives here on CPAP and was transitioned to BiPAP where she improved fairly quickly. She may have had some chest pain earlier but this has resolved. EMS reports she was quite hypertensive and she did receive nitroglycerin. Related Data Home Medications Medication Instructions Recorded Confirmed multivitamin 1 tab PO QAM 11/07/19 04/25/24 cholecalciferol (vitamin D3) 50 50 mcg PO DAILY 07/31/20 04/25/24 mcg (2,000 unit) capsule nitroglycerin 0.4 mg sublingual 0.4 mg sublingual Q5M PRN Chest 02/17/23 04/25/24 tablet (Nitrostat) Pain Previous Rx's Medication Instructions Recorded Articulating AFO ankle brace #1 ea 11/08/19 Diabetic shoes with inserts #1 ea 11/08/19 Manley Balance Brace to the Left #1 ea 01/29/22 flash glucose scanning reader #1 ea 11/21/22 (FreeStyle [place] 2 [place]) Accomdated custom diabetic shoe #1 ea 12/15/22 with custom insoles isosorbide mononitrate 60 mg See Rx Instructions .Route 11/05/23 tablet,extended release 24 hr .COMPLEX #100 tabs insulin glargine 100 unit/mL 58 unit (0.58 mL) SUBCUT QAM #52.2 02/10/24 subcutaneous solution (Lantus mL U-100 Insulin) insulin lispro 100 unit/mL See Rx Instructions SUBCUT TID #45 03/04/24 subcutaneous pen (Humalog KwikPen mL (U-100) Insulin) insulin syringe-needle U-100 1 mL #300 ea 03/04/24 31 gauge x 11/11 flash glucose sensor (FreeStyle #6 ea 03/08/24 River 2 Sensor kit) pen needle, diabetic 32 gauge x #300 ea 03/08/24 (BD Anayeli 2nd Gen Pen Needle) amlodipine 5 mg tablet 5 mg PO DAILY #90 tabs 03/14/24 carvedilol 6.25 mg tablet 6.25 mg PO BID #180 tabs 03/14/24 ciprofloxacin HCl 500 mg tablet 500 mg PO BID@0900,2100 #10 tabs 03/14/24 Allergies Allergy/AdvReac Type Severity Reaction Status Date / Time torsemide Allergy Severe ALGY-Rash Verified 04/26/24 22:52 adhesive tape Allergy Unknown unknown Verified 04/26/24 22:52 empagliflozin Allergy Unknown Unknown Verified 04/26/24 22:52 [From Jardiance] morphine Allergy Unknown unknown Verified 04/26/24 22:52 naproxen [From Aleve] Allergy Unknown Unknown Verified 04/26/24 22:52 Penicillins Allergy Unknown ADR-Diarrhe Verified 04/26/24 22:52 a pregabalin [From Lyrica] Allergy Unknown unknown Verified 04/26/24 22:52 sitagliptin [From Januvia] Allergy Unknown unknown Verified 04/26/24 22:52 triamcinolone Allergy Unknown Unknown Verified 04/26/24 22:52 celecoxib [From Celebrex] Allergy stomach Verified 04/26/24 22:52 bleed latex Allergy ADR-Itching Verified 04/26/24 22:52 metformin Allergy ADR-Diarrhe Verified 04/26/24 22:52 a milk Allergy Unknown Verified 04/26/24 22:52 aspirin AdvReac eye bleeds Verified 04/26/24 22:52 furosemide AdvReac N/V, Verified 04/26/24 22:52 Diarrhea, LAWSON Blood products AdvReac Unknown Unknown Uncoded 04/26/24 22:52 Review of Systems 2 Narrative: Constitutional symptoms: Negative except as documented in HPI. Skin symptoms: Negative except as documented in HPI. Eye symptoms: Negative except as documented in HPI. ENMT symptoms: Negative except as documented in HPI. Respiratory symptoms: Negative except as documented in HPI. Cardiovascular symptoms: Negative except as documented in HPI. Gastrointestinal symptoms: Negative except as documented in HPI. Genitourinary symptoms: Negative except as documented in HPI. Musculoskeletal symptoms: Negative except as documented in HPI. Neurologic symptoms: Negative except as documented in HPI. Psychiatric symptoms: Negative except as documented in HPI. Endocrine symptoms: Negative except as documented in HPI. PFSH ED 2 PFSH: Medical History HTN (hypertension) with goal to be determined Inflammatory arthritis Drug eruption Pacemaker Hx of needle biopsy Varicose vein of leg Swelling of lower leg Abnormal cardiovascular stress test Atrial fibrillation Irregular heart beat Atypical chest pain Nonrheumatic aortic valve sclerosis Ventricular arrhythmia Diabetes Depression Arthritis Hypertension Neuropathy Surgical History Hx of breast biopsy Status post endovenous radiofrequency ablation (RFA) of saphenous vein History of appendectomy Hx of cholecystectomy H/O: hysterectomy Family History Father CAD (coronary artery disease) Grandmother Cancer Diabetes Mother Dementia Brother Diabetes Lung disease Family/Other Lung disease Other Hyperlipidemia Hypertension Denies family history of Clotting disorder Chronic kidney disease (CKD) Suicide Anesthesia complication Bleeding disorder Stroke Social History Smoking and tobacco/nicotine status: never used tobacco/nicotine Alcohol intake: never Substance/Drug Use: never Physical Exam 2 Narrative: EXAM NARRATIVE: General: Alert, no acute distress. Skin: Warm, dry. Head: Normocephalic, atraumatic. Neck: Supple, trachea midline. Eye: Extraocular movements are intact. Ears, nose, mouth and throat: mucosa moist. Cardiovascular: Regular, Normal peripheral perfusion. Respiratory: Coarse breath sounds, tachypnea, moderate increased work of breathing. Patient is currently on a CPAP. Gastrointestinal: Soft, Nontender, Non distended Musculoskeletal: Normal ROM, no deformity. Neurological: Alert and oriented, No focal neurological deficit observed. Psychiatric: Cooperative, appropriate mood & affect. Course 2 Vital Signs: Vital signs: Vital Signs Temperature 98.0 F 04/26/24 22:38 Pulse Rate 80 04/27/24 01:10 Respiratory Rate 16 04/27/24 01:10 Blood Pressure 164/66 04/27/24 01:10 Pulse Oximetry 100 04/27/24 01:10 Oxygen Delivery Me thod BiPAP 04/27/24 01:10 Fraction of Inspir ed Oxygen 40 04/26/24 22:53 MDM - SOB/Dyspnea Medical Decision Making Differential diagnosis for patient with shortness of breath includes but is not limited to and based on the above HPI, review of systems and physical exam: Pneumonia. Bronchitis. Asthma or COPD with acute exacerbation. Acute coronary syndrome / OK. Pulmonary embolism. Anxiety. Congestive heart failure. Viral infections including influenza and Covid-19. Atrial fibrillation. Anxiety. Pleural effusion. Pneumothorax. Orders placed to evaluate differential diagnosis based on the above differential, HPI and physical exam EKG: Time 2244. Rate 89. Normal sinus rhythm, No ST-T changes, no ectopy, paced rhythm, this was reviewed and interpreted by myself the emergency room physician at 2250. EKG: Time 0042. Rate 81. Normal sinus rhythm, No ST-T changes, no ectopy, paced rhythm, this was reviewed and interpreted by myself the emergency room physician at 12:42 AM. No changes from previous EKG in the emergency room tonight Chest x-ray: Pulmonary edema, cardiomegaly, [employer] pacemaker in place. This was reviewed and interpreted by myself the emergency room physician. I also reviewed the radiology report. Lab Review: Laboratory results were reviewed and interpreted by myself the emergency room physician. Mild leukocytosis with a white count 11.6. Hemoglobin is stable at 10.6. BUN and creatinine are normal at seventeen 0.8. proBNP is mildly elevated around thousand. AB.4 0/42/109 with an O2 sat of 97% on a BiPAP with a 55% O2. No CO2 retention. I reviewed the patient's medical record. Reexamination: Patient appears much more comfortable now on a BiPAP. Lungs sound better. She is no longer tachypneic. No altered mental status. No focal motor deficits. She reports no chest pain at this time. Assessment and plan: Congestive heart failure Pulmonary edema Acute hypoxemic respiratory failure -Patient placed on BiPAP. IV Bumex given, patient says allergic to Lasix. Webb placed. ?I discussed the patient with the hospitalist on-call who is admitting the patient. - Discussed findings and plan with patient. Answered any questions. - All laboratory values were reviewed and interpreted personally by myself, the ER physician - All imaging was reviewed and interpreted personally by myself, the ER physician. - Evaluation and treatment of this problem were appropriate in the emergency setting Critical care -I spent a total of >35 minutes of critical care time managing the patient, independent of any other practitioner. -The time involved in the performance of separately reportable procedures was not counted towards critical care time. Lab Data 04/26/24 23:17 04/26/24 23:17 Labs/Radiology: Radiology Impressions Chest X-Ray 04/26/24 22:41 IMPRESSION: Mild pulmonary edema. Laboratory Results WBC 11.59 10^3/uL (3.29-11.43) H 04/26/24 23:17 RBC 4.11 10^6/uL (3.85-5.65) 04/26/24 23:17 Hgb 10.60 g/dL (11.27-16.99) L 04/26/24 23:17 Hct 35.1 % (36-47) L 04/26/24 23:17 MCV 85.4 fl (85-98) 04/26/24 23:17 MCH 25.8 pg (27-33) L 04/26/24 23:17 MCHC 30.2 g/dL (30-55) 04/26/24 23:17 RDW 15.0 % (12.1-15.1) 04/26/24 23:17 Plt Count 307 10^3/cmm (157-399) 04/26/24 23:17 MPV 9.1 fL (7.4-10.4) 04/26/24 23:17 Neut % (Auto) 80.7 % 04/26/24 23:17 Lymph % (Auto) 12.4 % 04/26/24 23:17 Mcculloch % (Auto) 4.8 % 04/26/24 23:17 Eos % (Auto) 1.2 % 04/26/24 23:17 Baso % (Auto) 0.3 % 04/26/24 23:17 Neut # (Auto) 9.35 10^3/uL (1.8-7.7) H 04/26/24 23:17 Lymph # (Auto) 1.4 10^3/uL (0.8-4.8) 04/26/24 23:17 Mcculloch # (Auto) 0.6 10^3/uL (0.2-0.9) 04/26/24 23:17 Eos # (Auto) 0.1 10^3/uL (0.0-0.8) 04/26/24 23:17 Baso # (Auto) 0.0 10^3/uL (0.0-0.1) 04/26/24 23:17 Nucleated RBC % (auto) 0 % 04/26/24 23:17 Nucleated RBCs # 0.0 /100WBC 04/26/24 23:17 Specimen Type Arterial 04/26/24 22:41 Sample Site Radial, right 04/26/24 22:41 ABG pH 7.40 (7.35-7.45) 04/26/24 22:41 ABG pCO2 42.3 mmHg (35-45) 04/26/24 22:41 ABG pO2 109.0 mmHg (80.0-100.0) H 04/26/24 22:41 ABG PO2/FiO2 Ratio 272 04/26/24 22:41 ABG HCO3 26.4 mmol/L (22-26) H 04/26/24 22:41 ABG O2 Saturation 99.0 04/26/24 22:41 ABG Base Excess 1.4 mmol/L (-2.0-2.0) 04/26/24 22:41 Pierce Test Pos 04/26/24 22:41 A-a O2 Gradient 16.0 mmHg (5-10) H 04/26/24 22:41 Hematocrit 32.9 % (37-47) L 04/26/24 22:41 Hgb O2 Saturation 97.0 % (95-100) 04/26/24 22:41 Carboxyhemoglobin 1.2 %THgb (0.4-20.1) 04/26/24 22:41 Methemoglobin 0.9 % (0.4-1.5) 04/26/24 22:41 Total Hemoglobin 10.7 g/dL (12-16) L 04/26/24 22:41 Sodium 142.0 mmol/L (131-143) 04/26/24 22:41 Potassium 4.1 mmol/L (3.5-5.0) 04/26/24 22:41 Glucose 136.0 mg/dL (70-115) H 04/26/24 22:41 Ionized Calcium 1.3 mmol/L (1.1-1.4) 04/26/24 22:41 O2 Delivery Device Bipap 04/26/24 22:41 FiO2 40.0 % 04/26/24 22:41 Technical Training Specialist ID [email or web address] 04/26/24 22:41 Sodium 138 mmol/L (136-145) 04/26/24 23:17 Potassium 4.5 mmol/L (3.5-5.1) 04/26/24 23:17 Chloride 102 mmol/L (98-107) 04/26/24 23:17 Carbon Dioxide 28 mmol/L (22-29) 04/26/24 23:17 Anion Gap 12.5 (5-19) 04/26/24 23:17 BUN 17 mg/dL (8-23) 04/26/24 23:17 Creatinine 0.8 mg/dL (0.5-0.9) 04/26/24 23:17 GFR Calculation Not Reportable 04/26/24 23:17 Glucose 139 mg/dL (65-115) H 04/26/24 23:17 Calculated Osmolality 290 mOsm/kg (285-295) 04/26/24 23:17 Lactic Acid 0.9 mmol/L (0.5-2.2) 04/26/24 23:17 Calcium 9.5 mg/dL (8.5-10.5) 04/26/24 23:17 Total Bilirubin 0.3 mg/dL (0.15-1.2) 04/26/24 23:17 AST 14 U/L (0-32) 04/26/24 23:17 ALT 11 U/L (0-33) 04/26/24 23:17 Alkaline Phosphatase 70 U/L (35-105) 04/26/24 23:17 Troponin T Baseline 30 ng/L (0-10) H 04/26/24 23:17 NT-Pro-B Natriuret Pep 998 pg/mL (0-125) H 04/26/24 23:17 Total Protein 7.2 g/dL (6.6-8.7) 04/26/24 23:17 Albumin 4.0 g/dL (3.5-5.2) 04/26/24 23:17 Globulin 3.2 g/dL (1.3-4.6) 04/26/24 23:17 Coronavirus (PCR) Negative (Negative) 04/26/24 23:17 Influenza A (PCR) Negative (Negative) 04/26/24 23:17 Influenza Type B (PCR) Negative (Negative) 04/26/24 23:17 RSV (PCR) Negative (Negative) 04/26/24 23:17 All radiology interpretation(s) finalized by discharge Discharge Plan Discharge Patient Disposition: Admitted As Inpatient Clinical Impression: Congestive heart failure, Acute hypoxemic respiratory failure, Accelerated hypertension Condition: Stable Coding Level of Care Code ED [facility] for Nile Solomon
[2024-04-26 22:52] LABS: ABG PCO2 42.3 mmHg (35-45); Arterial Blood Gas Hematocrit 32.9 % (37-47); Base Excess ABG 1.4 mmol/L (-2.0-2.0); Blood Gas Allen Test Pos; Blood Gas Sample Site Radial, right; Blood Gas Sample Type Arterial; Carboxyhemoglobin 1.2 %THgb (0.4-20.1); HCO3 ABG 26.4 mmol/L (22-26); Ionized Calcium Level - ABG 1.3 mmol/L (1.1-1.4); Methemoglobin 0.9 % (0.4-1.5); Oxygen Device BIPAP; PO2 FiO2 Ratio Arterial Blood 272; Potassium Level - ABG 4.1 mmol/L (3.5-5.0); Total Hemoglobin 10.7 g/dL (12-16)
[2024-04-26 22:53] VITALS: PULSE 90; RESP 25; O2SAT 99
[2024-04-26 23:35] LABS: Basophils % 0.3 %; Eosinophils # 0.1 10^3/uL (0.0-0.8); Eosinophils % 1.2 %; Hematocrit 35.1 % (36-47); Lymphocytes # 1.4 10^3/uL (0.8-4.8); Lymphocytes % 12.4 %; Mean Corpuscular HGB Conc 30.2 g/dL (30-55); Mean Corpuscular Hemoglobin 25.8 pg (27-33); Mean Corpuscular Volume 85.4 fl (85-98); Mean Platelet Volume 9.1 fL (7.4-10.4); Monocytes # 0.6 10^3/uL (0.2-0.9); Monocytes % 4.8 %; Neutrophils # 9.35 10^3/uL (1.8-7.7); Neutrophils % 80.7 %; Nucleated Red Blood Cells % 0 %; Platelet Count 307 10^3/cmm (157-399); Red Blood Count 4.11 10^6/uL (3.85-5.65); White Blood Count 11.59 10^3/uL (3.29-11.43)
[2024-04-26 23:37] VITALS: BP 181/76; O2SAT 100
[2024-04-26 23:50] LABS: Lactic Sepsis W/Reflex 0.9 mmol/L (0.5-2.2)
[2024-04-26 23:56] LABS: Troponin(5th) Baseline 30 ng/L (0-10)
[2024-04-27] VITALS (13 sets, daily range): BP systolic 131–171; BP diastolic 55–85; PULSE 65–88; RESP 16–24; TEMP 36.7–37.1; O2SAT 94–100; BMI 34.4
[2024-04-27 00:05] LABS: Alanine Aminotransferase 11 U/L (0-33); Alkaline Phosphatase 70 U/L (35-105); Anion Gap 12.5 (5-19); Aspartate Amino Transferase 14 U/L (0-32); Blood Urea Nitrogen 17 mg/dL (8-23); Calcium 9.5 mg/dL (8.5-10.5); Carbon Dioxide 28 mmol/L (22-29); Chloride 102 mmol/L (98-107); Creatinine Clr Calc Pharmacy 86.1878; Globulin 3.2 g/dL (1.3-4.6); Osmolality Calculated 290 mOsm/kg (285-295); Potassium 4.5 mmol/L (3.5-5.1); Sodium 138 mmol/L (136-145); Total Bilirubin 0.3 mg/dL (0.15-1.2); Total Protein 7.2 g/dL (6.6-8.7)
[2024-04-27 00:10] LABS: Covid PCR NEGATIVE (Negative); Influenza A NEGATIVE (Negative); Influenza B NEGATIVE (Negative); Respiratory Syncytial Virus Ce NEGATIVE (Negative)
[2024-04-27 00:11] LABS: Glucose 139 mg/dL (65-115); NT Pro B Type Natriuretic Pept 998 pg/mL (0-125)
--- NOTE | 2024-04-27 00:42 | ECG_ITS ---
[facility] Date: 2024-04[facility]27 Pat Name: Merly Guillen Department: Room: Gender: Female Student Records Specialist: : 1950 Requested By: Maria E Javier Order Number: [id number] Theodore MD: Quentin Reyes M.D. Measurements Intervals [place] Rate: 81 P: 60 [place]: 191 QRS: -71 QRSD: 182 T: 96 QT: 448 QTc: 522 Interpretive Statements ELECTRONIC VENTRICULAR PACEMAKER ABNORMAL RHYTHM ECG Compared to ECG 04/26/2024 22:44:42 No significant changes Electronically Signed On 04-27-2024 18:03:11 CDT by Quentin Reyes M.D. [id number]
[2024-04-27] MEDS: bumetanide 0.25 mg/mL SDV 4 mL 2 MG IVP (01:56)
--- NOTE | 2024-04-27 04:41 | ECG_ITS ---
[email or web address] Date: 2024-04-27 Pat Name: Merly Guillen Department: Room: Gender: Female Knuckle Bender: : 1950 Requested By: Maria E Javier Order Number: [id number] Jaimes MD: Quentin Reyes M.D. Measurements Intervals [place] Rate: 70 P: 29 [place]: 179 QRS: -68 QRSD: 178 T: 105 QT: 455 QTc: 492 Interpretive Statements ELECTRONIC ATRIAL PACEMAKER ELECTRONIC VENTRICULAR PACEMAKER ABNORMAL RHYTHM ECG Compared to ECG 04/27/2024 00:42:13 No significant changes Electronically Signed On 04-27-2024 17:19:12 CDT by Quentin Reyes M.D. [id number]
--- NOTE | 2024-04-27 05:52 | P.HP_ITS ---
Providers/Chief Complaint 2 Admitting Physician: Abhijit Valladares MD Primary Care Provider: Carlo Jason MD Chief Complaint: SOB History of Present Illness Merly Guillen is a 73 year old female with recent history of black pulmonary edema about 2 weeks ago. She declined cardiac cath at that time and has not had coronary artery disease previously. She does have a history of A-fib, congestive heart failure, pacemaker and leg swelling. Leg swelling has been worse on amlodipine recently given for blood pressure. She states she was on an [id number] diuretic which worked prior to the amlodipine. Patient states that at 845 on the 04/26/2024 she had shortness of breath and blood pressure was 178/151 with the reported narrow pulse pressure. Heart rate was 87 saturations 55% and she could not get a deep breath and was wheezing. Reports having similar episode 2 to 3 weeks ago admitted to this hospital. Looks like she was recommended for a stress test but she declined to have that done. Patient tells me she had a heart murmur and was told she had a valve leak. She also has a pacer placed February 18, 2023. Legs have been swelling and she elevates the head of her bed 30 degrees for sleep due to GERD. Patient does not smoke and alcohol is very rare i.e. two in 10 years. She has been weighing and weight was 239 on Thursday 241 yesterday and [address] Love reports that EMS picked her up with sats 60% she did not tolerate CPAP so they put her on nonrebreather. Here she was on BiPAP with rapid improvement within 5 minutes. She received Bumex 2 mg due to furosemide and torsemide allergy x-ray showed mild edema initial blood pressure 180/76 pulse 90 patient denied chest pain Medications/Allergies Home Medications Medication Instructions Recorded Confirmed Last Taken Type multivitamin 1 tab PO QAM 11/07/19 04/25/24 12/30/19 History Articulating AFO ankle brace #1 ea 11/08/19 04/25/24 Unknown Rx Diabetic shoes with inserts #1 ea 11/08/19 04/25/24 Unknown Rx cholecalciferol (vitamin D3) 50 50 mcg PO DAILY 07/31/20 04/25/24 Unknown History mcg (2,000 unit) capsule Manley Balance Brace to the Left #1 ea 01/29/22 04/25/24 Unknown Rx flash glucose scanning reader #1 ea 11/21/22 04/25/24 Unknown Rx (FreeStyle [place] 2 [place]) Accomdated custom diabetic shoe #1 ea 12/15/22 04/25/24 Unknown Rx with custom insoles nitroglycerin 0.4 mg sublingual 0.4 mg sublingual Q5M PRN Chest 02/17/23 04/25/24 Unknown History tablet (Nitrostat) Pain isosorbide mononitrate 60 mg See Rx Instructions .Route 11/05/23 04/25/24 Unknown Rx tablet,extended release 24 hr .COMPLEX #100 tabs insulin glargine 100 unit/mL 58 unit (0.58 mL) SUBCUT QAM #52.2 02/10/24 04/25/24 Unknown Rx subcutaneous solution (Lantus mL U-100 Insulin) insulin lispro 100 unit/mL See Rx Instructions SUBCUT TID #45 03/04/24 04/25/24 Unknown Rx subcutaneous pen (Humalog KwikPen mL (U-100) Insulin) insulin syringe-needle U-100 1 mL #300 ea 03/04/24 04/25/24 Unknown Rx 31 gauge x 5/16 flash glucose sensor (FreeStyle #6 ea 03/08/24 04/25/24 Unknown Rx River 2 Sensor kit) pen needle, diabetic 32 gauge x #300 ea 03/08/24 04/25/24 Unknown Rx 5/32 (BD Anayeli 2nd Gen Pen Needle) amlodipine 5 mg tablet 5 mg PO DAILY #90 tabs 03/14/24 04/25/24 Unknown Rx carvedilol 6.25 mg tablet 6.25 mg PO BID #180 tabs 03/14/24 04/25/24 Unknown Rx ciprofloxacin HCl 500 mg tablet 500 mg PO BID@0900,2100 #10 tabs 03/14/24 04/25/24 Unknown Rx Allergies Allergy/AdvReac Type Severity Reaction Status Date / Time torsemide Allergy Severe ALGY-Rash Verified 04/26/24 22:52 adhesive tape Allergy Unknown unknown Verified 04/26/24 22:52 empagliflozin Allergy Unknown Unknown Verified 04/26/24 22:52 [From Jardiance] morphine Allergy Unknown unknown Verified 04/26/24 22:52 naproxen [From Aleve] Allergy Unknown Unknown Verified 04/26/24 22:52 Penicillins Allergy Unknown ADR-Diarrhe Verified 04/26/24 22:52 a pregabalin [From Lyrica] Allergy Unknown unknown Verified 04/26/24 22:52 sitagliptin [From Januvia] Allergy Unknown unknown Verified 04/26/24 22:52 triamcinolone Allergy Unknown Unknown Verified 04/26/24 22:52 celecoxib [From Celebrex] Allergy stomach Verified 04/26/24 22:52 bleed latex Allergy ADR-Itching Verified 04/26/24 22:52 metformin Allergy ADR-Diarrhe Verified 04/26/24 22:52 a milk Allergy Unknown Verified 04/26/24 22:52 aspirin AdvReac eye bleeds Verified 04/26/24 22:52 furosemide AdvReac N/V, Verified 04/26/24 22:52 Diarrhea, LAWSON Blood products AdvReac Unknown Unknown Uncoded 04/26/24 22:52 PFSH Acute 2 PFSH: Medical History HTN (hypertension) with goal to be determined Inflammatory arthritis Drug eruption Pacemaker Hx of needle biopsy Varicose vein of leg Swelling of lower leg Abnormal cardiovascular stress test Atrial fibrillation Irregular heart beat Atypical chest pain Nonrheumatic aortic valve sclerosis Ventricular arrhythmia Diabetes Depression Arthritis Hypertension Neuropathy Surgical History Hx of breast biopsy Status post endovenous radiofrequency ablation (RFA) of saphenous vein History of appendectomy Hx of cholecystectomy H/O: hysterectomy Family History Father CAD (coronary artery disease) Grandmother Cancer Diabetes Mother Dementia Brother Diabetes Lung disease Family/Other Lung disease Other Hyperlipidemia Hypertension Denies family history of Clotting disorder Chronic kidney disease (CKD) Suicide Anesthesia complication Bleeding disorder Stroke Social History Smoking and tobacco/nicotine status: never used tobacco/nicotine Alcohol intake: never Substance/Drug Use: never Vitals/I&O/Wt Last Vital Signs Temp 98.0 F 04/26/24 22:38 Pulse 65 04/27/24 04:31 Resp 16 04/27/24 04:31 BP 165/63 04/27/24 04:31 Pulse Ox 100 04/27/24 04:31 O2 Del Method BiPAP 04/27/24 04:31 FiO2 35 04/27/24 02:45 04/26/24 04/26/24 04/27/24 14:59 22:59 06:59 Output Total 1999 Balance -1999 Weight last 48 hrs Weight 108.862 kg Physical Exam 2 Narrative: General Well-developed well-nourished overweight female in no acute cardiopulmonary distress BiPAP was removed. Sats were 99% and they dropped to 94% then climbed back to 96. CV regular rate and rhythm Lungs crackles heard in the right base and trace in the left base Abdomen positive bowel sounds soft obese nontender Calves 1+ edema bilateral Skin is warm and dry Mentation alert and oriented x 3 she is a good historian Urinary Catheter Management: Webb: Cath Placed During This Visit: yes Urinary Catheter Date of Insertion: 04/27/24 Urinary Catheter Time of Insertion: 01:15 Data 04/26/24 23:17 04/26/24 23:17 Micro: Microbiology 04/26/24 23:23 Blood Culture - Preliminary Blood SPECIMEN COLLECTED 04/26/24 23:17 Blood Culture - Preliminary Blood SPECIMEN COLLECTED A&P Assessment and plan (1) Accelerated hypertension: Blood pressure [id number] and patient has leaking valve but echo are otherwise unremarkable at baseline unstressed. Echo was technically not good quality last admission with mild to moderate mitral regurg mild aortic stenosis. There is trace tricuspid regurg and normal systolic function with mild diastolic dysfunction. Please have patient reevaluated by cardiology. Anticipate stress testing. (2) Acute hypoxemic respiratory failure: Patient has signs and symptoms of flash pulmonary edema now rapidly improved with BiPAP and diuresed 3 L rapidly with great improvement. She was given 2 mg of Bumex in the emergency department and I we will continue her on 1 mg orally daily. Potassium 10 mill colons daily started. Potassium will be rechecked this morning following diuresis. Consider testing for sleep apnea (3) Congestive heart failure: See above (4) Diabetes: Listed as intolerant to Januvia (5) Morbid obesity: Patient has extensive allergy list including Januvia. She may be a candidate for GLP 1 agonist Attestations 2 Medical Necessity Statement*: Patient will be admitted to the hospital for further diuresis and cardiology consultation. Stress testing is likely needed. Anticipate greater than 2 midnights in the hospital Coding Level of Care Code 62310 Diagnoses Accelerated hypertension I10 Acute hypoxemic respiratory failure J96.01 Congestive heart failure I50.9 Type 2 diabetes mellitus with hyperglycemia, without long-term current use of insulin E11.9 Morbid obesity E66.01 Time Spent (min) 70
[2024-04-27 05:56] LABS: Troponin 5 6HR 49.31 ng/L (0-10)
[2024-04-27 06:00] LABS: Troponin 5 6HR Delta 19.31 ng/L (0-12)
[2024-04-27 09:26] LABS: Glucose Point of Care 103 mg/dL (70-110)
[2024-04-27] MEDS: isosorbide mononitrate ER 60 mg Tablet PO (09:52)
[2024-04-27] MEDS: carvedilol 6.25 mg Tablet PO ×2 (09:52→17:52)
[2024-04-27] MEDS: heparin drip 25,000 UNIT/500 ML PREMIX 31 UNIT IV (10:04)
[2024-04-27] MEDS: heparin 5,000 unit/mL INJ 1 mL IVP (10:06)
[2024-04-27] MEDS: pantoprazole 40 mg SDV IVP ×2 (10:07→20:56)
[2024-04-27 11:07] LABS: INR 1.31 (0.8-1.2)
--- NOTE | 2024-04-27 11:07 | PC.NURSE ---
glucose 113 via fingerstick, pt provided juice and sandwich
[2024-04-27 11:09] LABS: Glucose Point of Care 113 mg/dL (70-110)
[2024-04-27 11:19] LABS: Partial Thromboplastin Time 139.5 SECONDS (23.9-36.7)
[2024-04-27 11:28] LABS: Procalcitonin 0.09 ng/mL (0-0.5); Thyroid Stimulating Hormone 3.55 uIU/mL (0.27-4.20)
[2024-04-27 12:20] LABS: Glucose Point of Care 176 mg/dL (70-110)
[2024-04-27] MEDS: insulin lispro 100 unit/1 mL SUBCUT ×3 (12:23→20:56)
--- NOTE | 2024-04-27 12:57 | USCV_ITS ---
Merly Guillen Age: 73 Gender: F : 1950 Exam Date: 04/27/2024 14:04 Ordering Phys: Jey Hester MD Technologist: CT Exam Location: [facility] Indication: HISTORY: Lower extremity pain. PROCEDURES: Venous duplex imaging was performed in bilateral lower extremities. The following venous structures were evaluated: common femoral vein, profunda vein, proximal portion of the greater saphenous vein, superficial femoral vein, and the popliteal vein. In addition, the posterior tibial veins were evaluated. FINDINGS: Normal 2-D Doppler and augmentation and compressibility throughout the lower extremity venous structures. Additional imaging through the proximal calf veins also reveals no thrombus. Limited evaluation of the greater saphenous vein is patent with no thrombus. CONCLUSIONS No DVT bilateral lower extremities. Dr. Bailey Mcgarry DO (Electronically Signed) Final Date: 27 April 2024 15:03 S
--- NOTE | 2024-04-27 12:57 | CT_ITS ---
WS: [id number] CT CHEST ANGIOGRAPHY WITH REFORMATS HISTORY: sob TECHNIQUE: Contiguous axial images are obtained through the chest during arterial injection of intrav enous contrast. Images are reconstructed to evaluate the pulmonary arteries. MIP imaging also reviewe d. All CT scans at [facility] use at least one of these dose optimization techniques: automat ed exposure control; mA and/or kV adjustment per patient size (includes targeted exams where dose is matched to clinical indication); or iterative reconstruction. CONTRAST: Omnipaque 350; 100 mL IV. DLP: 475.22 mGy.cm COMPARISON: None available. Adequate opacification of the pulmonary arteries. No pulmonary emboli identified through the segmenta l and some of the subsegmental branches. Pulmonary artery size is normal. Mild atherosclerosis aorta. No aneurysm. Marked LEFT heart enlargement. No RIGHT heart strain. Mildly enlarged mediastinal and h ilar lymph nodes. This may be reactive enlargement. Very small bilateral pleural effusions. Mild hazy attenuation throughout both lungs from edema. No pu lmonary mass or nodule. Thyroid gland is enlarged and mildly heterogeneous extending substernal, greatest on the LEFT. Thyroi d goiter has been previously described on 04/01/2022. LEFT subclavian cardiac pacer. Moderate size hiatal hernia. Prior cholecystectomy. No adrenal mass. Mild pancreatic atrophy. Increase in thoracic kyphosis with osteopenia. CT/CT angio chest PE protcl [id number] IMPRESSION: 1. No pulmonary embolism. 2. Mild pulmonary congestion. 3. Marked LEFT heart enlargement. 4. No pneumonia. 5. Markedly enlarged thyroid, previously described on 04/01/2022 by ultrasound is a goiter. 6. Prior cholecystectomy.
[2024-04-27] MEDS: potassium chloride ER 20 mEq Tablet PO (14:06)
[2024-04-27] MEDS: bumetanide 0.25 mg/mL SDV 4 mL 1 MG IVP (14:06)
[2024-04-27] MEDS: acetaminophen 325 mg Tablet 650 MG PO (14:21)
[2024-04-27] MEDS: iohexol 350 mg/mL 500 mL Btl (per mL) IV (14:58)
--- NOTE | 2024-04-27 15:57 | PM.PN ---
Subjective Subjective: Patient was seen this morning, her son-in-law are at bedside, she is alert oriented x 3, following all commands, she reports increased shortness of breath, she felt significant better with diuresis her edema has improved, she is puzzled, as she has not gained significant weight, and her primary care provider has saw her on a strict diuretic regimen, she does report sudden onset shortness of breath, does have a cough, no hemoptysis, does report increased bilateral extremity edema, no chest pain, but does report increased shortness of breath at rest or with exertion, she does report a rash on bilateral arms, nonpruritic, nontender, nonblanching she thinks it is from the [facility] Vitals/I&O/Wt Last Vital Signs Temp 98.0 F 04/26/24 22:38 Pulse 78 04/27/24 15:12 Resp 24 H 04/27/24 13:58 BP 142/60 04/27/24 15:12 Pulse Ox 97 04/27/24 15:12 O2 Del Method Room Air 04/27/24 15:50 FiO2 35 04/27/24 02:45 04/27/24 04/27/24 04/27/24 06:59 14:59 22:59 Output Total 1999 Balance -1999 Weight last 48 hrs Weight 108.862 kg Weight 108.862 kg Physical Exam Const: COMMON NORMALS: no acute distress Resp: COMMON NORMALS: normal respiratory effort, No retractions and No use of accessory muscles AUSCULTATION: crackles Cardio: COMMON NORMALS: regular rate, regular rhythm, S1 normal heart sound present and S2 normal heart sound present RATE: regular rate RHYTHM: regular rhythm HEART SOUNDS: S1 normal heart sound present and S2 normal heart sound present GI: COMMON NORMALS: Normal to inspection, nondistended, normoactive bowel sounds present and non-tender Extremity: NARRATIVE EXTREMITY EXAM: 2+ edema Psych: COMMON NORMALS: mental status grossly normal Skin: OTHER: Rash bilateral arms Urinary Catheter Management: Webb: Cath Placed During This Visit: yes Reason for Continuing Indwelling Catheter: Accurate Measurement of Urinary Output in Critically Ill Patients Urinary Catheter Date of Insertion: 04/27/24 Urinary Catheter Time of Insertion: 01:15 Data 04/26/24 23:17 04/26/24 23:17 Micro: Microbiology 04/26/24 23:23 Blood Culture - Preliminary Blood SPECIMEN COLLECTED 04/26/24 23:17 Blood Culture - Preliminary Blood SPECIMEN COLLECTED A&P Assessment and plan (1) Accelerated hypertension: (2) Acute hypoxemic respiratory failure: (3) Congestive heart failure: (4) Diabetes: (5) Morbid obesity: (6) NSTEMI (non-ST elevated myocardial infarction): (7) Atrial fibrillation: Qualifiers: Atrial fibrillation type: other persistent Qualified Code(s): I48.19 - Other persistent atrial fibrillation (8) Diabetic peripheral neuropathy associated with type 2 diabetes mellitus: (9) Anemia: Qualifiers: Anemia type: unspecified type Qualified Code(s): D64.9 - Anemia, unspecified Plan Acute hypoxic respiratory failure ? Likely secondary to systolic and diastolic CHF ? Plan ? Monitor urine output, monitor creatinine monitor potassium ? Bumex 1 mg IV twice daily ? Monitor clinical status -Given complaints of sudden onset shortness of breath, no second weight gain will order CT angiogram the chest, venous ultrasound NSTEMI -Type I versus type II ? No active chest pain complaints Continue aspirin, statin ? She has declined stress testing during her last hospitalization ? Will medically manage for now ? Continue heparin drip, monitor hemoglobin closely, every 6 hours Atrial fibrillation ? Continue Coreg ? Heparin drip as above History of anemia, iron deficiency, ? Will monitor Type 2 diabetes mellitus, monitor on sliding scale Full code ? Heparin for DVT prophylaxis ? Patient is a [employer] and declines blood products Attestations Medical Necessity Statement*: Patient requires hospitalization for acute hypoxic respiratory failure secondary to CHF, NSTEMI Diagnoses Accelerated hypertension I10 Acute hypoxemic respiratory failure J96.01 Congestive heart failure I50.9 Type 2 diabetes mellitus with hyperglycemia, without long-term current use of insulin E11.9 Morbid obesity E66.01 NSTEMI (non-ST elevated myocardial infarction) I21.4 Other persistent atrial fibrillation I48.19 Atrial fibrillation type: other persistent Diabetic peripheral neuropathy associated with type 2 diabetes mellitus E11.42 Anemia, unspecified type D64.9 Anemia type: unspecified type
[2024-04-27 17:07] LABS: Glucose Point of Care 258 mg/dL (70-110)
[2024-04-27 17:32] LABS: Partial Thromboplastin Time 71.7 SECONDS (23.9-36.7)
--- NOTE | 2024-04-27 20:18 | PC.NURSE ---
Spoke with regarding patient refusing atorvastatin, states she has an allergy to simvastatin broke out in blistering rash. said hold tonights dose of medication. Simvastatin added to patients allergy list. Also patient refusing tonights dose of lantus, states she takes her dose in the morning. said ok to change dose to start in morning.
[2024-04-27 20:25] LABS: Glucose Point of Care 300 mg/dL (70-110)
[2024-04-27 22:16] LABS: Hematocrit 31.1 % (36-47)
[2024-04-27 22:39] LABS: Partial Thromboplastin Time 77.6 SECONDS (23.9-36.7)
[2024-04-28] VITALS (10 sets, daily range): BP systolic 109–153; BP diastolic 60–79; PULSE 73–96; RESP 17–29; TEMP 36.8–37.3; O2SAT 94–99
[2024-04-28] MEDS: potassium chloride ER 20 mEq Tablet PO ×2 (00:23→12:12)
[2024-04-28] MEDS: bumetanide 0.25 mg/mL SDV 4 mL 1 MG IVP ×2 (00:23→12:12)
[2024-04-28] MEDS: heparin drip 25,000 UNIT/500 ML PREMIX 29 UNIT IV (00:24)
[2024-04-28 03:52] LABS: Basophils % 0.3 %; Eosinophils # 0.1 10^3/uL (0.0-0.8); Eosinophils % 1.8 %; Hematocrit 31.7 % (36-47); Lymphocytes % 27.6 %; Mean Corpuscular HGB Conc 30.9 g/dL (30-55); Mean Corpuscular Hemoglobin 25.8 pg (27-33); Mean Corpuscular Volume 83.4 fl (85-98); Mean Platelet Volume 9.4 fL (7.4-10.4); Monocytes # 0.6 10^3/uL (0.2-0.9); Monocytes % 8.7 %; Neutrophils # 4.41 10^3/uL (1.8-7.7); Neutrophils % 61.2 %; Nucleated Red Blood Cells % 0 %; Platelet Count 289 10^3/cmm (157-399); Red Cell Distribution Width 15.1 % (12.1-15.1); White Blood Count 7.21 10^3/uL (3.29-11.43)
[2024-04-28 04:10] LABS: Partial Thromboplastin Time 121.7 SECONDS (23.9-36.7)
[2024-04-28 04:38] LABS: Alanine Aminotransferase 10 U/L (0-33); Albumin Level 3.7 g/dL (3.5-5.2); Alkaline Phosphatase 60 U/L (35-105); Anion Gap 12.3 (5-19); Aspartate Amino Transferase 15 U/L (0-32); Blood Urea Nitrogen 16 mg/dL (8-23); Calcium 9.3 mg/dL (8.5-10.5); Carbon Dioxide 30 mmol/L (22-29); Chloride 102 mmol/L (98-107); Creatinine Clr Calc Pharmacy 76.6114; Globulin 3.3 g/dL (1.3-4.6); Glucose 195 mg/dL (65-115); Osmolality Calculated 297 mOsm/kg (285-295); Potassium 4.3 mmol/L (3.5-5.1); Sodium 140 mmol/L (136-145); Total Bilirubin 0.4 mg/dL (0.15-1.2)
[2024-04-28 06:18] LABS: Glucose Point of Care 208 mg/dL (70-110)
[2024-04-28] MEDS: pantoprazole 40 mg SDV IVP ×2 (07:52→21:05)
[2024-04-28] MEDS: insulin lispro 100 unit/1 mL SUBCUT ×4 (07:52→21:05)
[2024-04-28] MEDS: carvedilol 6.25 mg Tablet PO ×2 (07:53→17:16)
[2024-04-28] MEDS: isosorbide mononitrate ER 60 mg Tablet PO (07:53)
[2024-04-28] MEDS: insulin glargine 100 units/1 mL 20 UNIT SUBCUT (10:19)
--- NOTE | 2024-04-28 11:01 | USCV_ITS ---
Merly Guillen Age: 73 Gender: F : 1950 Exam Date: 04/28/2024 15:08 Ordering Phys: Jey Hester MD Technologist: Exam Location: [facility] [place] Indication: ef BP: 131 / 56 HR: Rhythm: Sinus Technical Quality: Adequate MEASUREMENTS (Male / Female) Normal Values 2D ECHO LV Diastolic Diameter PLAX 5.8 cm 4.2 - 5.9 / 3.9 - 5.3 cm IVS Diastolic Thickness 1.5 cm 0.6 - 1.0 / 0.6 - 0.9 cm IVS Systolic Thickness 1.7 cm LVPW Diastolic Thickness 1.6 cm 0.6 - 1.0 / 0.6 - 0.9 cm LVPW Systolic Thickness 2.2 cm LVOT Diameter 2.4 cm LV Ejection Fraction 2D Teich 67.7 % LV Ejection Fraction MOD 4C 43.9 % LV Ejection Fraction MOD 2C 65.3 % LV Ejection Fraction 2C AL 64.9 % LA Diameter 3.5 cm RA Systolic Volume 4C AL 51.5 ml RA Systolic Volume 4C MOD 49.6 ml Aorta at Sinotubular Diameter 2.9 cm FINDINGS Left Ventricle Mild left ventricle hypertrophy. Normal wall wall motion and thickening. Normal LV systolic function. Estimated LVEF normal 60%. Right Ventricle Normal right ventricular size and systolic function. Right Atrium Normal right atrial size. Left Atrium Normal left atrial size. Mitral Valve Aortic Valve Tricuspid Valve Pulmonic Valve Pericardium Aorta Normal size aortic root and proximal ascending aorta. IVC CONCLUSIONS Limited study to assess left ventricle functions Mild left ventricle hypertrophy. Normal LV systolic function. LVEF normal 60%. Normal right ventricle size and systolic function. Quentin Reyes MD (Electronically Signed) Final Date: 28 April 2024 17:07 S
--- NOTE | 2024-04-28 11:01 | ECG_ITS ---
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
[2024-04-28 11:10] LABS: Partial Thromboplastin Time 107.7 SECONDS (23.9-36.7)
[2024-04-28 11:31] LABS: Troponin(5th) Baseline 38 ng/L (0-10)
[2024-04-28 12:29] LABS: Glucose Point of Care 250 mg/dL (70-110)
[2024-04-28 12:42] LABS: Troponin 5 2HR 35.89 ng/L (0-10)
[2024-04-28 12:49] LABS: Troponin 5 2HR Delta -2.11 ABS# (0-10)
--- NOTE | 2024-04-28 13:01 | ECG_ITS ---
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 Measurements Intervals [place] Rate: 76 P: 50 [place]: 184 QRS: -75 QRSD: 173 T: 106 QT: 445 QTc: 501 Interpretive Statements ELECTRONIC VENTRICULAR PACEMAKER ABNORMAL RHYTHM ECG Compared to ECG 04/28/2024 13:31:41 No significant changes Electronically Signed On 04-28-2024 17:17:04 CDT by Quentin Reyes M.D. [id number]
--- NOTE | 2024-04-28 13:31 | ECG_ITS ---
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 Measurements Intervals [place] Rate: 81 P: 65 [place]: 188 QRS: -79 QRSD: 182 T: 108 QT: 438 QTc: 510 Interpretive Statements ELECTRONIC VENTRICULAR PACEMAKER ABNORMAL RHYTHM ECG Compared to ECG 04/27/2024 04:56:07 Atrial-paced complex(es) or rhythm no longer present Electronically Signed On 04-28-2024 17:12:20 CDT by Quentin Reyes M.D. [id number]
--- NOTE | 2024-04-28 15:03 | P.PN_ITS ---
Subjective 2 Subjective: Patient was seen this morning, she is alert awake, following all commands she does tell me that her shortness of breath has improved, no fevers, no chills overnight, she did report 1 episode of chest discomfort, we had a detailed discussion with her about the risk and benefits of stress testing, she agrees to proceed, denies any blood or black stools, no lightheaded, dizziness, no nausea, no vomiting, Vitals/I&O/Wt Last Vital Signs Temp 98.6 F 04/28/24 11:44 Pulse 77 04/28/24 14:00 Resp 20 H 04/28/24 11:44 BP 151/72 04/28/24 11:44 Pulse Ox 98 04/28/24 11:44 O2 Del Method Nasal Cannula 04/28/24 11:44 O2 Flow Rate 2 04/28/24 11:44 FiO2 35 04/27/24 02:45 04/28/24 04/28/24 04/28/24 06:59 14:59 22:59 Intake Total 165.783 / 563.616 506.3 / 506.3 Output Total 1400 / 3400 Balance -1234.217 / -2836.384 506.3 / 506.3 Weight last 48 hrs Weight 108.862 kg Weight 108.862 kg Weight 108.862 kg Physical Exam 2 Const: COMMON NORMALS: no acute distress and patient oriented x3 Resp: COMMON NORMALS: normal respiratory effort, No retractions and No use of accessory muscles AUSCULTATION: crackles Cardio: COMMON NORMALS: regular rate, regular rhythm, S1 normal heart sound present and S2 normal heart sound present RATE: regular rate RHYTHM: r egular rhythm HEART SOUNDS: S1 normal heart sound present and S2 normal heart sound present GI: COMMON NORMALS: Normal to inspection, nondistended, normoactive bowel sounds present and non-tender Extremity: NARRATIVE EXTREMITY EXAM: 1+ pitting edema Neuro: COMMON NORMALS: patient oriented x3 Psych: COMMON NORMALS: mental status grossly normal Urinary Catheter Management: Webb: Cath Placed During This Visit: yes Reason for Continuing Indwelling Catheter: Acute Urinary Retention or Obstruction Urinary Catheter Date of Insertion: 04/27/24 Urinary Catheter Time of Insertion: 01:15 Data 04/28/24 03:40 04/28/24 03:40 Micro: Microbiology 04/26/24 23:23 Blood Culture - Preliminary Blood NEGATIVE TO DATE 04/26/24 23:17 Blood Culture - Preliminary Blood NEGATIVE TO DATE A&P Assessment and plan (1) Accelerated hypertension: (2) Acute hypoxemic respiratory failure: (3) Congestive heart failure: (4) Diabetes: (5) Morbid obesity: (6) NSTEMI (non-ST elevated myocardial infarction): (7) Atrial fibrillation: Qualifiers: Atrial fibrillation type: other persistent Qualified Code(s): I48.19 - Other persistent atrial fibrillation (8) Diabetic peripheral neuropathy associated with type 2 diabetes mellitus: (9) Anemia: Qualifiers: Anemia type: unspecified type Qualified Code(s): D64.9 - Anemia, unspecified Plan Acute hypoxic respiratory failure ? Likely secondary to systolic and diastolic CHF CT angiogram CT/CT angio chest PE protcl [id number] IMPRESSION: 1. No pulmonary embolism. 2. Mild pulmonary congestion. 3. Marked LEFT heart enlargement. 4. No pneumonia. 5. Markedly enlarged thyroid, previously described on 04/01/2022 by ultrasound is a goiter. 6. Prior cholecystectomy. venous CONCLUSIONS No DVT bilateral lower extremities. ? Plan ? Monitor urine output, monitor creatinine monitor potassium ? Bumex 1 mg IV twice daily ? Monitor clinical status NSTEMI -Type I versus type II ? has complaints of chest pain Continue aspirin, statin ? stress testing pending ? Will medically manage for now ? Continue heparin drip, monitor hemoglobin closely, every 6 hours Atrial fibrillation ? Continue Coreg ? Heparin drip as above History of anemia, iron deficiency, ? Will monitor hgb -ferritin, iron, tibc Type 2 diabetes mellitus, monitor on sliding scale Full code ? Heparin for DVT prophylaxis ? Patient is a Sh[employer] and declines blood products Attestations 2 Medical Necessity Statement*: Patient requires hospitalization for chest pain, NSTEMI, CHF exacerbation Diagnoses Accelerated hypertension I10 Acute hypoxemic respiratory failure J96.01 Congestive heart failure I50.9 Type 2 diabetes mellitus with hyperglycemia, without long-term current use of insulin E11.9 Morbid obesity E66.01 NSTEMI (non-ST elevated myocardial infarction) I21.4 Other persistent atrial fibrillation I48.19 Atrial fibrillation type: other persistent Diabetic peripheral neuropathy associated with type 2 diabetes mellitus E11.42 Anemia, unspecified type D64.9 Anemia type: unspecified type
--- NOTE | 2024-04-28 16:06 | PC.NURSE ---
Assisted patient up to chair at this time. Patient denies any distress.
[2024-04-28 16:27] LABS: Hematocrit 32.7 % (36-47)
[2024-04-28 16:53] LABS: Troponin 5 6HR 35.95 ng/L (0-10)
[2024-04-28 16:54] LABS: Troponin 5 6HR Delta -2.05 ng/L (0-12)
[2024-04-28 16:58] LABS: Ferritin 209 ng/mL (15-150); Iron 33 ug/dL (37-145); Percent Saturation 15.4 % (20-50); Total Iron Binding Capacity 214 mcg/dl; Unsaturated Iron Binding 181 ug/dL (112-347)
[2024-04-28 17:02] LABS: Glucose Point of Care 275 mg/dL (70-110)
[2024-04-28 18:49] LABS: Partial Thromboplastin Time 48.9 SECONDS (23.9-36.7)
[2024-04-28 20:55] LABS: Glucose Point of Care 274 mg/dL (70-110)
[2024-04-28] MEDS: acetaminophen 325 mg Tablet 650 MG PO (23:28)
[2024-04-29] VITALS (8 sets, daily range): BP systolic 105–147; BP diastolic 45–71; PULSE 53–88; RESP 20–31; TEMP 36.6–36.9; O2SAT 94–99
[2024-04-29] MEDS: bumetanide 0.25 mg/mL SDV 4 mL 1 MG IVP (00:59)
[2024-04-29] MEDS: potassium chloride ER 20 mEq Tablet PO ×2 (00:59→12:28)
[2024-04-29] MEDS: heparin drip 25,000 UNIT/500 ML PREMIX 17 UNIT IV (01:00)
[2024-04-29 01:11] LABS: Partial Thromboplastin Time 47.1 SECONDS (23.9-36.7)
[2024-04-29 06:38] LABS: Glucose Point of Care 216 mg/dL (70-110)
[2024-04-29] MEDS: regadenoson 0.4 Mg/5 ml Syringe IVP (07:18)
--- NOTE | 2024-04-29 08:27 | PC.NURSE ---
return from cardiac stress test via w/c.pt tolerated procedure well
[2024-04-29] MEDS: pantoprazole 40 mg SDV IVP (08:29)
[2024-04-29] MEDS: insulin lispro 100 unit/1 mL SUBCUT ×3 (08:30→17:20)
[2024-04-29] MEDS: insulin glargine 100 units/1 mL 20 UNIT SUBCUT (08:30)
[2024-04-29] MEDS: carvedilol 6.25 mg Tablet PO ×2 (08:31→17:20)
[2024-04-29] MEDS: isosorbide mononitrate ER 60 mg Tablet PO (08:31)
[2024-04-29 09:18] LABS: Basophils % 0.3 %; Eosinophils # 0.1 10^3/uL (0.0-0.8); Eosinophils % 1.5 %; Lymphocytes # 1.6 10^3/uL (0.8-4.8); Lymphocytes % 18.9 %; Mean Corpuscular HGB Conc 28.4 g/dL (30-55); Mean Corpuscular Hemoglobin 25.8 pg (27-33); Mean Corpuscular Volume 90.9 fl (85-98); Mean Platelet Volume 9.7 fL (7.4-10.4); Monocytes # 0.7 10^3/uL (0.2-0.9); Monocytes % 7.8 %; Neutrophils # 6.11 10^3/uL (1.8-7.7); Nucleated Red Blood Cells % 0 %; Platelet Count 280 10^3/cmm (157-399); Red Blood Count 4.07 10^6/uL (3.85-5.65); White Blood Count 8.61 10^3/uL (3.29-11.43)
[2024-04-29 09:33] LABS: Partial Thromboplastin Time 42.7 SECONDS (23.9-36.7)
[2024-04-29 09:38] LABS: Alanine Aminotransferase 9 U/L (0-33); Albumin Level 3.3 g/dL (3.5-5.2); Alkaline Phosphatase 66 U/L (35-105); Anion Gap 17.4 (5-19); Aspartate Amino Transferase 11 U/L (0-32); Blood Urea Nitrogen 19 mg/dL (8-23); Calcium 9.7 mg/dL (8.5-10.5); Carbon Dioxide 22 mmol/L (22-29); Chloride 102 mmol/L (98-107); Creatinine Clr Calc Pharmacy 68.9502; Globulin 3.9 g/dL (1.3-4.6); Glucose 249 mg/dL (65-115); Osmolality Calculated 295 mOsm/kg (285-295); Potassium 4.4 mmol/L (3.5-5.1); Sodium 137 mmol/L (136-145); Total Bilirubin 0.4 mg/dL (0.15-1.2); Total Protein 7.2 g/dL (6.6-8.7)
[2024-04-29] MEDS: heparin 5,000 unit/mL INJ 1 mL IVP (09:47)
--- NOTE | 2024-04-29 10:43 | PM.DCS ---
Discharge Providers Date of Admission: 04/27/24 14:28 Date of Discharge: April 29, 2024 Attending Provider at Admission: Jey Hester MD Attending Provider at Discharge: Jey Hester MD Primary Care Provider: Carlo Jason MD Diagnoses at Discharge Discharge Diagnosis (1) Accelerated hypertension: Status: Acute (2) Acute hypoxemic respiratory failure: Status: Acute (3) Congestive heart failure: Status: Acute (4) Diabetes: Status: Acute (5) Morbid obesity: Status: Acute (6) NSTEMI (non-ST elevated myocardial infarction): Status: Acute (7) Atrial fibrillation: Status: Acute Qualifiers: Atrial fibrillation type: other persistent Qualified Code(s): I48.19 - Other persistent atrial fibrillation (8) Diabetic peripheral neuropathy associated with type 2 diabetes mellitus: Status: Acute (9) Anemia: Status: Acute Qualifiers: Anemia type: unspecified type Qualified Code(s): D64.9 - Anemia, unspecified Reason for Visit Reason for Visit: SOB Hospital Course Hospital Course Patient is a 73-year-old female with a past medical history of atrial fibrillation, CHF, pacemaker, hypertension, diabetes, who presents [facility] for shortness of breath, chest pain Chest pain ? Cardiac echocardiogram ? CONCLUSIONS Limited study to assess left ventricle functions Mild left ventricle hypertrophy. Normal LV systolic function. LVEF normal 60%. Normal right ventricle size and systolic function. ? 6-hour troponin 49, positive delta of 19.31 Cardiac stress test IMPRESSIONS Possible old myocardial infarction versus scarring noted in the basal to distal inferior wall without ischemia. This study is negative for ischemia. ? No recurrent chest pain during hospitalization ? Did receive anticoagulant therapy heparin drip for over 48 hours no hemodynamic compromise no bloody or black stools, hemoglobin stable ? Patient has an allergy to aspirin, statin ? Discharged on home Imdur -Discharged on Eliquis therapy ? Follow-up cardiology 1 week -If any recurrent chest pain go to the emergency room For atrial fibrillation, patient had episodes of A-fib with RVR during hospitalization, which were short-lived -After extensive discussion with patient she was discharged on Eliquis therapy 5 mg twice daily, CHADS2 Vasc2 was 5 -I did detailed discussion with her she is a Jehovah's witness and does not accept blood products she was monitored as inpatient on anticoagulant therapy, no hemodynamic compromise no bloody or black stools, hemoglobin is stable # Discussed with her the risk and benefits of anticoagulant therapy, she voiced understanding, all questions answered, shared decision making, agreed to proceed with Eliquis therapy Patient was advised if she were to have any bloody or black stools to be to call 911 Patient was admitted to [facility] for shortness of breath -Secondary to systolic and diastolic CHF exacerbation -Required IV diuresis ? She was diuresed over 5 L ? Clinically improved, discharged on Bumex therapy with potassium therapy with a close follow-up with cardiology as outpatient -Patient was advised to have her primary care and cardiology monitor her creatinine and potassium Physical Exam Const: COMMON NORMALS: no acute distress and patient oriented x3 Resp: COMMON NORMALS: normal respiratory effort, No retractions, No use of accessory muscles and clear to auscultation bilaterally AUSCULTATION: clear to auscultation bilaterally Cardio: COMMON NORMALS: regular rate, regular rhythm, S1 normal heart sound present and S2 normal heart sound present RATE: regular rate RHYTHM: regular rhythm HEART SOUNDS: S1 normal heart sound present and S2 normal heart sound present GI: COMMON NORMALS: Normal to inspection, nondistended, normoactive bowel sounds present and non-tender Extremity: COMMON NORMALS: no pedal edema Neuro: COMMON NORMALS: patient oriented x3 Psych: COMMON NORMALS: mental status grossly normal Urinary Catheter Management: Webb: Cath Placed During This Visit: yes Reason for Continuing Indwelling Catheter: Acute Urinary Retention or Obstruction Urinary Catheter Date of Insertion: 04/27/24 Urinary Catheter Time of Insertion: 01:15 Discharge Data Studies Completed and Pending Completed Studies During Hospitalization Category Date Time Status CT angio chest PE protcl [id number] Stat Cat Scan 04/27/24 12:57 Completed Sestamibi Stress Test Request Routine Exams 04/28/24 11:01 Draft XR chest 1V portable [id number] Stat Exams 04/26/24 22:41 [place] [id number] Stat Ultrasound 04/27/24 12:57 Completed CV. echo limited [id number] Routine Ultrasound 04/28/24 11:01 Completed Pending at discharge Category Date Time Status Blood Culture Stat Lab 04/26/24 23:23 Results Complete Blood Count w/Auto AM LABS Lab 04/30/24 04:00 Ordered Comprehensive Metabolic Panel AM LABS Lab 04/30/24 04:00 Ordered PTT [Partial Thromboplastin Time] Stat Lab 04/29/24 16:00 Ordered Platelet Count Q2D Lab 05/01/24 04:00 Ordered NM tala perf SPECT r/s* [id number] Routine Nuc Med 04/29/24 11:01 Taken Radiology Impressions Chest X-Ray 04/26/24 22:41 IMPRESSION: Mild pulmonary edema. Chest CTA 04/27/24 12:57 IMPRESSION: 1. No pulmonary embolism. 2. Mild pulmonary congestion. 3. Marked LEFT heart enlargement. 4. No pneumonia. 5. Markedly enlarged thyroid, previously described on 04/01/2022 by ultrasound is a goiter. 6. Prior cholecystectomy. Laboratory Results WBC 8.61 10^3/uL (3.29-11.43) 04/29/24 09:11 RBC 4.07 10^6/uL (3.85-5.65) 04/29/24 09:11 Hgb 10.50 g/dL (11.27-16.99) L 04/29/24 09:11 Hct 37.0 % (36-47) 04/29/24 09:11 MCV 90.9 fl (85-98) 04/29/24 09:11 MCH 25.8 pg (27-33) L 04/29/24 09:11 MCHC 28.4 g/dL (30-55) L D 04/29/24 09:11 RDW 15.0 % (12.1-15.1) 04/29/24 09:11 Plt Count 280 10^3/cmm (157-399) 04/29/24 09:11 MPV 9.7 fL (7.4-10.4) 04/29/24 09:11 Neut % (Auto) 71.0 % 04/29/24 09:11 Lymph % (Auto) 18.9 % 04/29/24 09:11 [place] % (Auto) 7.8 % 04/29/24 09:11 Eos % (Auto) 1.5 % 04/29/24 09:11 Baso % (Auto) 0.3 % 04/29/24 09:11 Neut # (Auto) 6.11 10^3/uL (1.8-7.7) 04/29/24 09:11 Lymph # (Auto) 1.6 10^3/uL (0.8-4.8) 04/29/24 09:11 [facility] # (Auto) 0.7 10^3/uL (0.2-0.9) 04/29/24 09:11 Eos # (Auto) 0.1 10^3/uL (0.0-0.8) 04/29/24 09:11 Baso # (Auto) 0.0 10^3/uL (0.0-0.1) 04/29/24 09:11 Nucleated RBC % (auto) 0 % 04/29/24 09:11 Nucleated RBCs # 0.0 /100WBC 04/29/24 09:11 PT 16.70 SECONDS (12.1-14.9) H 04/27/24 10:26 INR 1.31 (0.8-1.2) H 04/27/24 10: APTT 42.7 SECONDS (23.9-36.7) H 04/29/24 09:11 Specimen Type Arterial 04/26/24 22:41 Sample Site Radial, right 04/26/24 22:41 ABG pH 7.40 (7.35-7.45) 04/26/24 22:41 ABG pCO2 42.3 mmHg (35-45) 04/26/24 22:41 ABG pO2 109.0 mmHg (80.0-100.0) H 04/26/24 22:41 ABG PO2/FiO2 Ratio 272 04/26/24 22:41 ABG HCO3 26.4 mmol/L (22-26) H 04/26/24 22:41 ABG O2 Saturation 99.0 04/26/24 22:41 ABG Base Excess 1.4 mmol/L (-2.0-2.0) 04/26/24 22:41 Pierce Test Pos 04/26/24 22:41 A-a O2 Gradient 16.0 mmHg (5-10) H 04/26/24 22:41 Hematocrit 32.9 % (37-47) L 04/26/24 22:41 Hgb O2 Saturation 97.0 % (95-100) 04/26/24 22:41 Carboxyhemoglobin 1.2 %THgb (0.4-20.1) 04/26/24 22:41 Methemoglobin 0.9 % (0.4-1.5) 04/26/24 22:41 Total Hemoglobin 10.7 g/dL (12-16) L 04/26/24 22:41 Sodium 142.0 mmol/L (131-143) 04/26/24 22:41 Potassium 4.1 mmol/L (3.5-5.0) 04/26/24 22:41 Glucose 136.0 mg/dL (70-115) H 04/26/24 22:41 Ionized Calcium 1.3 mmol/L (1.1-1.4) 04/26/24 22:41 O2 Delivery Device Bipap 04/26/24 22:41 FiO2 40.0 % 04/26/24 22:41 Electric Freight Car Operator ID [email or web address] 04/26/24 22:41 Sodium 137 mmol/L (136-145) 04/29/24 09:11 Potassium 4.4 mmol/L (3.5-5.1) 04/29/24 09:11 Chloride 102 mmol/L (98-107) 04/29/24 09:11 Carbon Dioxide 22 mmol/L (22-29) 04/29/24 09:11 Anion Gap 17.4 (5-19) 04/29/24 09:11 BUN 19 mg/dL (8-23) 04/29/24 09:11 Creatinine 1.0 mg/dL (0.5-0.9) H 04/29/24 09:11 GFR Calculation Not Reportable 04/29/24 09:11 Glucose 249 mg/dL (65-115) H 04/29/24 09:11 POC Glucose 216 mg/dL (70-110) H 04/29/24 06:33 Calculated Osmolality 295 mOsm/kg (285-295) 04/29/24 09:11 Lactic Acid 0.9 mmol/L (0.5-2.2) 04/26/24 23:17 Calcium 9.7 mg/dL (8.5-10.5) 04/29/24 09:11 Iron 33 ug/dL (37-145) L 04/28/24 12:10 TIBC 214 mcg/dl 04/28/24 12:10 % Saturation 15.4 % (20-50) L 04/28/24 12:10 Unsat Iron Binding 181 ug/dL (112-347) 04/28/24 12:10 Ferritin 209 ng/mL (15-150) H 04/28/24 12:10 Total Bilirubin 0.4 mg/dL (0.15-1.2) 04/29/24 09:11 AST 11 U/L (0-32) 04/29/24 09:11 ALT 9 U/L (0-33) 04/29/24 09:11 Alkaline Phosphatase 66 U/L (35-105) 04/29/24 09:11 Troponin T Baseline 38 ng/L (0-10) H 04/28/24 10:22 Troponin T 120 Minute 35.89 ng/L (0-10) H 04/28/24 12:10 Delta Troponin T -2.11 ABS# (0-10) L 04/28/24 12:10 Troponin T Hi Sens 6Hr 35.95 ng/L (0-10) H 04/28/24 16:18 Troponin T Hi Sens 6Hr Delta -2.05 ng/L (0-12) L 04/28/24 16:18 NT-Pro-B Natriuret Pep 998 pg/mL (0-125) H 04/26/24 23:17 Total Protein 7.2 g/dL (6.6-8.7) 04/29/24 09:11 Albumin 3.3 g/dL (3.5-5.2) L 04/29/24 09:11 Globulin 3.9 g/dL (1.3-4.6) 04/29/24 09:11 Procalcitonin 0.09 ng/mL (0-0.5) 04/27/24 10:26 TSH 3.55 uIU/mL (0.27-4.20) 04/27/24 10:26 Coronavirus (PCR) Negative (Negative) 04/26/24 23:17 Influenza A (PCR) Negative (Negative) 04/26/24 23:17 Influenza Type B (PCR) Negative (Negative) 04/26/24 23:17 RSV (PCR) Negative (Negative) 04/26/24 23:17 Vitals Last Vital Signs Temp 98.4 F 04/29/24 08:00 Pulse 78 04/29/24 08:00 Resp 31 H 04/29/24 04:00 BP 136/71 04/29/24 08:00 Pulse Ox 95 04/29/24 10:38 O2 Del Method Room Air 04/29/24 10:38 O2 Flow Rate 2 10/31/24 11:44 FiO2 35 04/27/24 02:45 Discharge Plan Discharge Patient Disposition: Home Condition: Stable Prescriptions: New bumetanide 1 mg tablet 1 mg PO DAILY 30 Days Qty: 30 0RF potassium chloride [Klor-Con M20] 20 mEq tablet,ER particles/crystals 20 meq PO DAILY 30 Days Qty: 30 0RF Eliquis 5 mg tablet 5 mg PO BID 30 Days Qty: 60 0RF Continued cholecalciferol (vitamin D3) 50 mcg (2,000 unit) capsule 50 mcg PO DAILY multivitamin Tablet 1 tab PO QAM isosorbide mononitrate 60 mg tablet extended release 24 hr See Rx Instructions .ROUTE .COMPLEX Qty: 100 3RF Dose Instruction: TAKE 1 TABLET BY MOUTH DAILY Rx Instructions: TAKE 1 TABLET BY MOUTH DAILY insulin aspart U-100 100 unit/mL (3 mL) insulin pen See Rx Instructions SUBCUT TID MDD 35 Qty: 15 3RF Rx Instructions: sliding scale subcutaneously three times daily; nitroglycerin [Nitrostat] 0.4 mg Tablet, Sublingual 0.4 mg SUBLINGUAL Q5M PRN (Reason: Chest Pain) Rx Instructions: do not exceed 3 doses per episode carvedilol 6.25 mg Tablet 6.25 mg PO BID Qty: 180 0RF ferrous sulfate [Iron (ferrous sulfate)] 325 mg (65 mg iron) Tablet 325 mg PO DAILY Changed insulin glargine [Lantus U-100 Insulin] 100 unit/mL solution 25 unit SUBCUT QAM Qty: 52.2 1RF Discontinued amlodipine 5 mg tablet 5 mg PO DAILY Qty: 90 0RF No Action (DME) Diabetic shoes with inserts Qty: 1 0RF Rx Instructions: As directed (DME) Articulating AFO ankle brace Qty: 1 0RF Rx Instructions: As directed (DME) Manley Balance Brace to the Left See Rx Instructions .Route .MEDSUPPLY Qty: 1 0RF Rx Instructions: As directed by [employer] (DME) FreeStyle [place] 2 [facility] See Rx Instructions .Route Qty: 1 0RF Rx Instructions: As directed (DME) Accomdated custom diabetic shoe with custom insoles See Rx Instructions .Route .MEDSUPPLY Qty: 1 0RF Rx Instructions: As directed (DME) insulin syringe-needle U-100 1 mL 31 gauge x 5/16 syringe See Rx Instructions .ROUTE .COMPLEX Qty: 300 0RF Dose Instruction: USE DIRECTED Rx Instructions: USE DIRECTED (DME) FreeStyle River 2 Sensor Kit See Rx Instructions .ROUTE .COMPLEX Qty: 6 0RF Dose Instruction: USE TO TEST BLOOD SUGAR Rx Instructions: USE TO TEST BLOOD SUGAR (DME) pen needle, diabetic [BD Anayeli 2nd Gen Pen Needle] 32 gauge x 5/32 needle See Rx Instructions .ROUTE .COMPLEX Qty: 300 0RF Dose Instruction: USE DIRECTED Rx Instructions: USE DIRECTED Discharge Orders: Discharge Order (Routine); Ordered 04/29/24 Ordered By: Jey Hester Referrals: Alfonso King MD [Physician] - 05/11/24 3:30 pm Carlo Jason MD [Primary Care Provider] - (We have notified your physician's clinic of the need for a follow-up appointment to be scheduled. If you have not heard from them within the next 2 business days, please call them directly at [phone] ) Discharge Diet: Cardiac Discharge Activity: Resume usual activity Patient Instructions: Bumetanide (By mouth) (Bumex), Potassium Chloride (By mouth), Apixaban (By mouth), Heart Attack (DC), Heart Failure (DC), Chronic Hypertension (DC), CHF Stoplight, Chest Pain Stoplight, Opioid Safety Activity Restrictions/Additional Instructions: -if you have chest pain please got to emergency room -Eliquis is a strong blood thinner, if you develop bloody or black stools before significant fall please immediate go to emergency room -Take Lasix 40 mg daily with potassium replacement therapy see your primary care provider next week for recheck potassium and creatinine Discharge Attestations Time Spent in Discharge Care*: greater than 30 min Quality Metrics Clinical Quality Measures [ No reported AMI, CVA or VTE this stay] Coding Level of Care Code 88924 Total time (in minutes) for Discharge: 45 Diagnoses Accelerated hypertension I10 Acute hypoxemic respiratory failure J96.01 Congestive heart failure I50.9 Type 2 diabetes mellitus with hyperglycemia, without long-term current use of insulin E11.9 Morbid obesity E66.01 NSTEMI (non-ST elevated myocardial infarction) I21.4 Other persistent atrial fibrillation I48.19 Atrial fibrillation type: other persistent Diabetic peripheral neuropathy associated with type 2 diabetes mellitus E11.42 Anemia, unspecified type D64.9 Anemia type: unspecified type
--- NOTE | 2024-04-29 11:01 | NMCV_ITS ---
NM tala perf SPECT r/s* [id number] Merly Guillen Age: 73 Gender: F : 1950 Exam Date: 04/29/2024 06:31 Ordering Phys: Jey Hester MD Technologist: LILA Giron Exam Location: [facility] Indications: cp STRESS TEST Please see separate stress test report in [facility] for full findings IMAGE PROTOCOL Rest/Stress 1 Lexiscan Day Radiopharmaceutical Dose (mCi) Administration Site Administered by Rest: Tc-99m 10 IV Claudia Gonzalez, GEOLOGIST PETROLEUM Sestamibi Stress:Tc-99m 31.5 IV Claudia Tylergle, GEOLOGIST PETROLEUM Sestamibi Rest: 29-Apr-2024 60 Discovery 630 Stress: 29-Apr-2024 30 Discovery 630 0.4mg Lexiscan. Supine position only as patient was unable to lay prone. SPECT RESULTS Technical Quality: Good Raw Data Analysis: Normal Image Corrections: No attenuation or motion correction applied Summed Stress Score: 1 Summed Rest Score: 0 Summed Difference Score: 1 PERFUSION FINDINGS Large area of patchy decreased tracer uptake noted in basal to distal inferior wall on both stress and rest images suggestive of old myocardial infarction versus scarring. FUNCTIONAL RESULTS (calculated via Gated SPECT) Stress Image LV EF (%): 41 Stress EDV (mL):164 TID: 1.07 Stress ESV (mL):97 FUNCTIONAL FINDINGS: There appeared to be global hypokinesis with moderately depressed left ventricle ejection fraction 41% however ejection fraction calculation may not be accurate IMPRESSIONS Possible old myocardial infarction versus scarring noted in the basal to distal inferior wall without ischemia. This study is negative for ischemia. Alfonso King MD (Electronically Signed) Final Date: 29 April 2024 11:59 S
[2024-04-29 11:45] LABS: Glucose Point of Care 231 mg/dL (70-110)
--- NOTE | 2024-04-29 12:38 | PC.CHAP ---
Pastoral Care Encounter/Spiritual Assessment Type of Contact [] Declined vb net developer visit [] Patient/Family/Request visit [] Outpatient visit [] Follow-up visit [] Physician referral [] Code/Alert [x] Routine visit [] Staff referral [] Actively dying [] Patient sleeping [] Family support [] [] Out of room [] Palliative care [] [] Receiving care in room [] Pre-surgical visit [] Trauma [] Long length of stay [] ICU visit [] Other: Relational/Emotional Strength [x] Patient feels connected with others/family/visitors/staff [] Distress [] Loneliness/isolation [] Abandonment Spirituality of Patient [x] Person of [place] [x] Attends Restoration of their [place] [x] Believes in Prayer [] Reads Bible or Mosque materials [] There are Spiritual issues to be addressed Boom Stick Man Interventions [x] Prayer [x] Active listening [x] Non-anxious presence [x] Spiritual/emotional support [] Crisis/trauma care [] Spiritual counseling [] Bereavement support [] Provided bereavement packet [] Provided Bible/devotional materials [] Provided toy/stuffed animal, coloring book to patient or family member [] Provided Communion [] Anointing/[place] [] Salvation [] Completed spiritual assessment [] Other: Impact on Illness or Injury [] Angry [] Fearful [] Anxious [] Often cries [] Exhaustion [] Unable to work [] Unable to attend shinto [] Unable to walk/stand [] Unable to read [] Unable to drive [] Unable to eat/drink [] Unable to sleep [] Unable to be with family [] Patient intubated [] Other: Summary Jehovah witness Willing to talk. Time spent with patient 45 Min
[2024-04-29 17:06] LABS: Glucose Point of Care 266 mg/dL (70-110)
[2024-04-29] MEDS: bumetanide 1 mg Tablet PO (17:20)
--- NOTE | 2024-04-29 18:15 | PC.NURSE ---
pt discharged by order earlier today...has not left due to...had messer,which was discontinued...and now pt cannot urinate.dr almodovar notified.Dose of iv bumex, which was due earlier today, but not given..due to iv had been dc'd....given po at this time
--- NOTE | 2024-04-29 18:50 | PC.NURSE ---
pt voided.discharge instructions given and explained.pt verb understanding of instructions.discharged via w/c to exit.son to drive pt home
== END 2024-04-29 18:52 | disposition home health service (06) | DRG 280 ==
LOC: ER 04-27 00:49 → CSU 04-27 14:28
PROVIDERS: Admitting Provider Family Medicine; Emergency Provider Emergency Medicine; PCP Family Medicine; Visit Provider Family Medicine
DX: I11.0 Hypertensive heart disease with heart failure (principal); I50.43 Acute on chronic combined systolic (congestive) and diastolic (congestive) heart failure; I21.4 Non-ST elevation (NSTEMI) myocardial infarction; J96.01 Acute respiratory failure with hypoxia; I48.19 Other persistent atrial fibrillation; E11.42 Type 2 diabetes mellitus with diabetic polyneuropathy; E11.65 Type 2 diabetes mellitus with hyperglycemia; I08.0 Rheumatic disorders of both mitral and aortic valves; F32.A Depression, unspecified; E66.01 Morbid (severe) obesity due to excess calories; D50.9 Iron deficiency anemia, unspecified; Z79.4 Long term (current) use of insulin; Z95.0 Presence of cardiac pacemaker; Z68.34 Body mass index [BMI] 34.0-34.9, adult; Z88.0 Allergy status to penicillin; Z88.8 Allergy status to other drugs, medicaments and biological substances
CPT/HCPCS: 0241U; 36415; 36416; 36600; 51702; 71045; 71275; 78452; 80051; 80053; 82330; 82728; 82805; 82962; 83540; 83550; 83605; 83880; 84145; 84443; 84484; 85014; 85018; 85025; 85610; 85730; 87040; 93005; 93017; 93308; 93970; 94660; 94664; 96372; 96375; 96376; A9500; J1644; J1815; J2470; J2785; J3490

== ENCOUNTER → 2024-05-11 16:49 | Outpatient (BNVA) | payer MEDICARE, MEDICAID, SELFPAY | PROVIDERS: PCP Family Medicine; Visit Provider Nurse Practitioner Family | DX: I50.9 Heart failure, unspecified (principal) | CPT/HCPCS: 36415; 80053; 99214 ==

== ENCOUNTER → 2024-05-16 11:13 | Outpatient (BNVA) | payer MEDICARE, MEDICAID, SELFPAY | PROVIDERS: PCP Family Medicine; Visit Provider Podiatrist Foot & Ankle Surgery | DX: I50.9 Heart failure, unspecified (principal) | CPT/HCPCS: 11056; 11721; 36415; 80048; 83880 ==

== ENCOUNTER 2024-06-01 08:38 | Outpatient (CLI) | payer MEDICARE, MEDICAID, SELFPAY ==
[2024-06-01 09:43] LABS: Alanine Aminotransferase 14 U/L (0-33); Albumin Level 3.9 g/dL (3.5-5.2); Alkaline Phosphatase 93 U/L (35-105); Aspartate Amino Transferase 15 U/L (0-32); Blood Urea Nitrogen 40 mg/dL (8-23); Calcium 10.2 mg/dL (8.5-10.5); Carbon Dioxide 27 mmol/L (22-29); Chloride 96 mmol/L (98-107); Chol HDL Ratio 5.97 mg/dL (0.0-4.40); Cholesterol 179 mg/dL (0-200); Globulin 3.7 g/dL (1.3-4.6); Glucose 338 mg/dL (65-115); HDL Cholesterol 30 mg/dL (60-100); LDL Cholesterol Calculated 107 mg/dL (50-129); LDL HDL Ratio 3.57 RATIO (0.00-3.22); Osmolality Calculated 305 mOsm/kg (285-295); Sodium 136 mmol/L (136-145); Total Bilirubin 0.2 mg/dL (0.15-1.2); Total Protein 7.6 g/dL (6.6-8.7); Triglycerides 211 mg/dL (0-150)
[2024-06-01 09:48] LABS: Creatinine Urine, Random 90 mg/dL (28-217); Microalbum Creatinine Ratio Ur 22 mg/dL (0-20); Microalbumin Random Urine 2 ug/dL (0-20)
[2024-06-01 09:48] LABS: Estmated Average Glucose 206; Hemoglobin A1C 8.8 % (4.0-6.0)
== END 2024-06-01 08:39 | disposition home or self-care (01) ==
PROVIDERS: Absent Provider Internal Medicine; PCP Family Medicine; Visit Provider Nurse Practitioner Family
DX: I50.9 Heart failure, unspecified; E78.2 Mixed hyperlipidemia; E11.65 Type 2 diabetes mellitus with hyperglycemia
CPT/HCPCS: 36415; 80053; 80061; 82044; 83036

== ENCOUNTER → 2024-06-10 08:26 | Outpatient (BNVA) | payer MEDICARE, MEDICAID, SELFPAY | PROVIDERS: PCP Family Medicine; Visit Provider Internal Medicine | DX: E78.2 Mixed hyperlipidemia (principal); N18.31 Chronic kidney disease, stage 3a; E11.65 Type 2 diabetes mellitus with hyperglycemia; E55.9 Vitamin D deficiency, unspecified; E11.22 Type 2 diabetes mellitus with diabetic chronic kidney disease; Z79.4 Long term (current) use of insulin | CPT/HCPCS: 99214 ==

== ENCOUNTER → 2024-06-21 10:59 | Outpatient (BNVA) | payer MEDICARE, MEDICAID, SELFPAY | PROVIDERS: PCP Family Medicine; Visit Provider Internal Medicine | DX: Z45.018 Encounter for adjustment and management of other part of cardiac pacemaker (principal) | CPT/HCPCS: 93296 ==

== ENCOUNTER → 2024-09-26 09:59 | Outpatient (BNVA) | payer MEDICARE, MEDICAID, SELFPAY | PROVIDERS: PCP Family Medicine; Visit Provider Podiatrist Foot & Ankle Surgery | DX: E11.42 Type 2 diabetes mellitus with diabetic polyneuropathy (principal); L60.3 Nail dystrophy; L84 Corns and callosities; Z79.4 Long term (current) use of insulin | CPT/HCPCS: 11056; 11721 ==

== ENCOUNTER → 2024-09-28 09:00 | Outpatient (BNVA) | payer MEDICARE, MEDICAID, SELFPAY | PROVIDERS: PCP Family Medicine; Visit Provider Internal Medicine Cardiovascular Disease | DX: Z45.018 Encounter for adjustment and management of other part of cardiac pacemaker (principal) | CPT/HCPCS: 93296 ==

== ENCOUNTER 2024-10-11 14:10 | Outpatient (CLI) | payer OTHER, MEDICAID, SELFPAY ==
[2024-10-11 15:20] LABS: Calcium 10.5 mg/dL (8.5-10.5)
[2024-10-11 15:23] LABS: Creatinine Urine, Random 77 mg/dL (28-217); Microalbum Creatinine Ratio Ur 13 mg/dL (0-20); Microalbumin Random Urine 1 ug/dL (0-20)
[2024-10-11 15:27] LABS: Parathyroid Hormone 66.5 pg/mL (15-65)
[2024-10-11 15:39] LABS: 25 Hydroxy Vitamin D 30 ng/mL (30-100); Alanine Aminotransferase 7 U/L (0-33); Albumin Level 4.1 g/dL (3.5-5.2); Alkaline Phosphatase 61 U/L (35-105); Anion Gap 14.1 (5-19); Aspartate Amino Transferase 17 U/L (0-32); Blood Urea Nitrogen 33 mg/dL (8-23); Calcium 10.4 mg/dL (8.5-10.5); Carbon Dioxide 31 mmol/L (22-29); Chloride 98 mmol/L (98-107); Chol HDL Ratio 6.55 mg/dL (0.0-4.40); Cholesterol 203 mg/dL (0-200); Globulin 3.5 g/dL (1.3-4.6); Glucose 174 mg/dL (65-115); HDL Cholesterol 31 mg/dL (60-100); LDL Cholesterol Calculated 134 mg/dL (50-129); LDL HDL Ratio 4.32 RATIO (0.00-3.22); Osmolality Calculated 299 mOsm/kg (285-295); Potassium 4.1 mmol/L (3.5-5.1); Sodium 139 mmol/L (136-145); Thyroid Stimulating Hormone 1.85 uIU/mL (0.27-4.20); Total Bilirubin 0.3 mg/dL (0.15-1.2); Total Protein 7.6 g/dL (6.6-8.7); Triglycerides 192 mg/dL (0-150)
[2024-10-11 15:43] LABS: Estmated Average Glucose 189; Hemoglobin A1C 8.2 % (4.0-6.0)
[2024-10-11 16:08] LABS: Free T4 Free Thyroxine 0.99 ng/dL (0.82-1.77)
== END 2024-10-11 14:11 | disposition home or self-care (01) ==
LOC: LAB 14:13
PROVIDERS: PCP Family Medicine; Visit Provider Internal Medicine
DX: N18.31 Chronic kidney disease, stage 3a (principal); R07.89 Other chest pain; I10 Essential (primary) hypertension; I95.2 Hypotension due to drugs; E78.2 Mixed hyperlipidemia; E55.9 Vitamin D deficiency, unspecified; E66.01 Morbid (severe) obesity due to excess calories; E04.9 Nontoxic goiter, unspecified; E21.3 Hyperparathyroidism, unspecified; E11.42 Type 2 diabetes mellitus with diabetic polyneuropathy; E11.9 Type 2 diabetes mellitus without complications; I49.9 Cardiac arrhythmia, unspecified
CPT/HCPCS: 36415; 80053; 80061; 82044; 82306; 82310; 83036; 83970; 84439; 84443

== ENCOUNTER → 2024-10-12 08:19 | Outpatient (BNVA) | payer OTHER, MEDICAID, SELFPAY | PROVIDERS: PCP Family Medicine; Visit Provider Internal Medicine | DX: E11.65 Type 2 diabetes mellitus with hyperglycemia (principal); E78.2 Mixed hyperlipidemia; E55.9 Vitamin D deficiency, unspecified; N18.31 Chronic kidney disease, stage 3a | CPT/HCPCS: 99214 ==

== ENCOUNTER → 2024-11-22 12:52 | Outpatient (BNVA) | payer OTHER, MEDICAID, SELFPAY | PROVIDERS: PCP Family Medicine; Visit Provider Internal Medicine Cardiovascular Disease | DX: I48.19 Other persistent atrial fibrillation (principal); I49.5 Sick sinus syndrome; F43.9 Reaction to severe stress, unspecified; I11.0 Hypertensive heart disease with heart failure; I50.30 Unspecified diastolic (congestive) heart failure; Z79.01 Long term (current) use of anticoagulants | CPT/HCPCS: 99214 ==

== ENCOUNTER → 2024-11-28 08:58 | Outpatient (BNVA) | payer MEDICARE, MEDICAID, SELFPAY | PROVIDERS: PCP Family Medicine; Visit Provider Podiatrist Foot & Ankle Surgery | DX: E11.42 Type 2 diabetes mellitus with diabetic polyneuropathy (principal); L60.8 Other nail disorders; L84 Corns and callosities; L60.3 Nail dystrophy; M21.41 Flat foot [pes planus] (acquired), right foot; M21.42 Flat foot [pes planus] (acquired), left foot; M20.41 Other hammer toe(s) (acquired), right foot; M20.42 Other hammer toe(s) (acquired), left foot; Z79.4 Long term (current) use of insulin | CPT/HCPCS: 11056; 11721; 99213 ==

== ENCOUNTER 2025-01-09 08:38 | Outpatient (CLI) | payer MEDICARE, MEDICAID, SELFPAY ==
[2025-01-09 10:17] LABS: Estmated Average Glucose 166; Hemoglobin A1C 7.4 % (4.0-6.0)
[2025-01-09 10:23] LABS: Alanine Aminotransferase 12 U/L (0-33); Albumin Level 4.0 g/dL (3.5-5.2); Alkaline Phosphatase 60 U/L (35-105); Anion Gap 14.3 (5-19); Aspartate Amino Transferase 14 U/L (0-32); Blood Urea Nitrogen 35 mg/dL (8-23); Calcium 10.6 mg/dL (8.5-10.5); Carbon Dioxide 28 mmol/L (22-29); Chloride 103 mmol/L (98-107); Cholesterol 106 mg/dL (0-200); Globulin 4.0 g/dL (1.3-4.6); Glucose 136 mg/dL (65-115); HDL Cholesterol 31 mg/dL (60-100); Osmolality Calculated 302 mOsm/kg (285-295); Potassium 4.3 mmol/L (3.5-5.1); Sodium 141 mmol/L (136-145); Total Protein 8.0 g/dL (6.6-8.7); Triglycerides 155 mg/dL (0-150)
[2025-01-09 10:25] LABS: Creatinine Urine, Random 104 mg/dL (28-217)
[2025-01-09 10:26] LABS: Microalbum Creatinine Ratio Ur 87 mg/dL (0-20)
== END 2025-01-09 08:39 | disposition home or self-care (01) ==
LOC: LAB 08:41
PROVIDERS: PCP Family Medicine; Visit Provider Internal Medicine
DX: E78.2 Mixed hyperlipidemia (principal); E55.9 Vitamin D deficiency, unspecified; N18.31 Chronic kidney disease, stage 3a; E11.65 Type 2 diabetes mellitus with hyperglycemia
CPT/HCPCS: 36415; 80053; 80061; 82044; 83036

== ENCOUNTER → 2025-01-11 08:40 | Outpatient (BNVA) | payer OTHER, MEDICAID, SELFPAY | PROVIDERS: PCP Family Medicine; Visit Provider Internal Medicine | DX: E11.65 Type 2 diabetes mellitus with hyperglycemia (principal); E78.2 Mixed hyperlipidemia; E55.9 Vitamin D deficiency, unspecified; N18.31 Chronic kidney disease, stage 3a | CPT/HCPCS: 99214 ==

== ENCOUNTER → 2025-01-18 09:25 | Outpatient (BNVA) | payer OTHER, MEDICAID, SELFPAY | PROVIDERS: PCP Family Medicine; Visit Provider Internal Medicine Cardiovascular Disease | DX: Z45.018 Encounter for adjustment and management of other part of cardiac pacemaker (principal) | CPT/HCPCS: 93296 ==

== ENCOUNTER → 2025-03-06 09:06 | Outpatient (BNVA) | payer OTHER, MEDICAID, SELFPAY | PROVIDERS: PCP Family Medicine; Visit Provider Podiatrist Foot & Ankle Surgery | DX: E11.42 Type 2 diabetes mellitus with diabetic polyneuropathy (principal); L60.3 Nail dystrophy; L84 Corns and callosities; L60.8 Other nail disorders; M21.41 Flat foot [pes planus] (acquired), right foot; M21.42 Flat foot [pes planus] (acquired), left foot; M20.41 Other hammer toe(s) (acquired), right foot; M20.42 Other hammer toe(s) (acquired), left foot; Z79.4 Long term (current) use of insulin | CPT/HCPCS: 11056; 11721 ==

== ENCOUNTER 2025-04-10 07:34 | Outpatient (CLI) | payer OTHER, SELFPAY ==
[2025-04-10 08:20] LABS: Alanine Aminotransferase 12 U/L (0-33); Albumin Level 3.9 g/dL (3.5-5.2); Alkaline Phosphatase 56 U/L (35-105); Anion Gap 15.9 (5-19); Aspartate Amino Transferase 15 U/L (0-32); Blood Urea Nitrogen 33 mg/dL (8-23); Calcium 10.4 mg/dL (8.5-10.5); Carbon Dioxide 27 mmol/L (22-29); Chloride 99 mmol/L (98-107); Cholesterol 138 mg/dL (0-200); Globulin 3.8 g/dL (1.3-4.6); Glucose 144 mg/dL (65-115); HDL Cholesterol 34 mg/dL (60-100); Osmolality Calculated 296 mOsm/kg (285-295); Potassium 3.9 mmol/L (3.5-5.1); Sodium 138 mmol/L (136-145); Total Protein 7.7 g/dL (6.6-8.7); Triglycerides 181 mg/dL (0-150)
[2025-04-10 08:21] LABS: Creatinine Urine, Random 93 mg/dL (28-217); Microalbum Creatinine Ratio Ur 22 mg/dL (0-20)
[2025-04-10 08:41] LABS: Estmated Average Glucose 163; Hemoglobin A1C 7.3 % (4.0-6.0)
== END 2025-04-10 07:35 | disposition home or self-care (01) ==
PROVIDERS: PCP Family Medicine; Visit Provider Internal Medicine
DX: E11.65 Type 2 diabetes mellitus with hyperglycemia (principal); E78.2 Mixed hyperlipidemia; E55.9 Vitamin D deficiency, unspecified; N18.31 Chronic kidney disease, stage 3a
CPT/HCPCS: 36415; 80053; 80061; 82044; 83036

== ENCOUNTER → 2025-04-12 09:22 | Outpatient (BNVA) | payer OTHER, MEDICAID, SELFPAY | PROVIDERS: PCP Family Medicine; Visit Provider Internal Medicine | DX: E78.2 Mixed hyperlipidemia (principal); N18.31 Chronic kidney disease, stage 3a; E11.65 Type 2 diabetes mellitus with hyperglycemia; E55.9 Vitamin D deficiency, unspecified; Z79.4 Long term (current) use of insulin | CPT/HCPCS: 99214 ==

== ENCOUNTER 2025-04-24 12:55 | Outpatient (CLI) | payer OTHER, MEDICAID, SELFPAY ==
--- NOTE | 2025-04-24 13:00 | XR_ITS ---
WS: [id number] SCREENING DEXA SCAN [facility] CLINICAL INFORMATION: SCREENING FOR OSTEOPOROSIS COMPARISON: 2022 FINDINGS: The L1-L4 bone mineral density measures 1.240 g/cm2. This corresponds to a T score score of 0.5 and Z score of 1.0. Left femoral neck bone mineral density measures 0.775 g/cm2. This corresponds to a T score of -1.8 and Z score of -1.1. Right femoral neck bone mineral density measures 0.802 g/cm2. This corresponds to a T score -1.6of and Z score of -0.9. Mean femoral neck bone mineral density measures 0.789 g/cm2. This corresponds to a T score of -1.7 and Z score of -1.0. XR/XR DEXA axial skeleton* [id number] IMPRESSION: Normal bone mineralization lumbar spine. Osteopenia femoral necks. Patient's FRAX calculated 10 year probability for major osteoporotic fracture i s 16.2% and osteoporotic hip fracture is 5.7%. Bone density lumbar spine unchanged. Bone density femoral necks decreased -7.0%
== END 2025-04-24 12:56 | disposition home or self-care (01) ==
LOC: RAD 12:56
PROVIDERS: PCP Family Medicine; Visit Provider Family Medicine
DX: Z13.820 Encounter for screening for osteoporosis (principal); Z78.0 Asymptomatic menopausal state; M85.89 Other specified disorders of bone density and structure, multiple sites
CPT/HCPCS: 77080

== ENCOUNTER → 2025-05-23 08:46 | Outpatient (BNVA) | payer OTHER, MEDICAID, SELFPAY | PROVIDERS: PCP Family Medicine; Visit Provider Nurse Practitioner Family | DX: I48.91 Unspecified atrial fibrillation (principal); Z79.01 Long term (current) use of anticoagulants; I49.5 Sick sinus syndrome; I11.0 Hypertensive heart disease with heart failure; I50.30 Unspecified diastolic (congestive) heart failure; F43.9 Reaction to severe stress, unspecified; I83.90 Asymptomatic varicose veins of unspecified lower extremity; E11.9 Type 2 diabetes mellitus without complications; Z79.4 Long term (current) use of insulin; Z95.0 Presence of cardiac pacemaker | CPT/HCPCS: 99213 ==

== ENCOUNTER → 2025-06-05 08:30 | Outpatient (BNVA) | payer MEDICARE, MEDICAID, SELFPAY | PROVIDERS: PCP Family Medicine; Visit Provider Podiatrist Foot & Ankle Surgery | DX: E11.42 Type 2 diabetes mellitus with diabetic polyneuropathy (principal); L60.3 Nail dystrophy; L84 Corns and callosities; E11.8 Type 2 diabetes mellitus with unspecified complications; L60.8 Other nail disorders; Z79.4 Long term (current) use of insulin | CPT/HCPCS: 11056; 11721 ==